=== PATIENT | female | born 1960 | race Two or more races ===

== ENCOUNTER 2018-03-09 17:33 | Emergency (ER) | payer OTHER ==
[2018-03-09 17:55] VITALS: BP 101/62
--- NOTE | 2018-03-09 18:00 | UC ---
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 Drove back to [place], but when stood up felt sudden sharp pain in R foot , dorsal lat foot. 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 No p/d/w. But hurts to move foot or bear weight. 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 TONSILECTOMY. ARTIFICIAL HEART VALVE. GALL BLADDER. OOPHORECTOMY. Bilateral blepharoplasty , bilateral eyelid surgery - Family History Known Family History: Positive: Unknown - Social History Alcohol Use: Weekly Alcohol Amount: had some tonight Substance Use Type: None Smoking Status (MU): Never Smoked Tobacco Have You Smoked in the Last Year: No - Immunization History Most Recent Tetanus Shot: unknown, probably within 10 years Review of Systems Constitutional: Negative Skin: Negative Eyes: Negative ENT: Negative Respiratory: Negative Cardiovascular: Negative Gastrointestinal: Negative Genitourinary: Negative Motor: Other - see hpi Neurovascular: Negative Musculoskeletal: Arthralgia, Myalgia Neurological: Negative Psychological: Negative Is Patient Immunocompromised?: No All Other Systems Reviewed And Are Negative: Yes Physical Exam Triage Information Reviewed: Yes Appearance: Well-Appearing, Well-Nourished Vital Signs: Initial Vital Signs Temp 98.3 F 03/09/18 17:47 Pulse 74 03/09/18 17:47 Resp 16 03/09/18 17:47 BP 101/62 03/09/18 17:47 Pulse Ox 99 03/09/18 17:47 Vital Signs Reviewed: Yes Eye Exam: Normal - grossly normal ENT Exam: Normal - grossly normal Neck exam: Normal - no c/o Respiratory Exam: Normal - no tachypnea no dyspnea. RR normal Cardiovascular Exam: Normal - HR normal, nondiaphoretic. Abdominal Exam: Normal - no complaints Musculoskeletal Exam: Other - R foot + dorsal hematoma mid 4th 5th mt region. No crepitus. Partial thickness abrasion. Distal cap refill x 5 dig good. + sens LT present. Hematoma approx 3cm + diam, smooth margin. Neurological Exam: Normal - grossly nonfocal Psychological Exam: Normal - conversing easily and appropriately Skin Exam: Normal - [place] [facility] [place] exam. nondiaphoretic. + hematoma R dorsal foot Lower Extremity Course/Dx - Course Course Of Treatment: Xray R foot No acute fx (radiology read). Reviewed with. Reviewed coa / tx plan, include elevation, wound care. She takes acetaminophen for pain, has some at home. Cam boot - unsteady. As such, crutches, post op shoe. Questions as posed answered to the best of my ability. Checks her own INR at home, maintains close pcp f/u. - Differential Dx/Diagnosis Provider Diagnoses: R foot hematoma and abrasion. in the setting of chronic anticoagulation Discharge - Sign-Out/Discharge Documenting (check all that apply): Patient Departure - Discharge Plan Condition: Stable Disposition: HOME Patient Education Materials: Abrasion (ED), Hematoma (ED) Forms: *Work Release Referrals: Barb Fernandes DPM [Doctor of Podiatric Medicine] - Nickie Robbins MD [Primary Care Provider] - Additional Instructions: Follow up with your Applied Anthropologist this week if possible. Call your primary care physician on Monday to schedule routine follow up as needed, and to advise of your condition. Elevate your foot as much as possible. Avoid astringents. Seek medical attention for worse or new problems. CAM boot for walking as needed for comfort. Otherwise, firm soled good support shoe. - Billing Disposition and Condition Condition: STABLE Disposition: Home
--- NOTE | 2018-03-09 18:23 | RAD ---
INDICATION: Right foot injury COMPARISON: None TECHNIQUE: AP, lateral, and oblique views were obtained. FINDINGS: There is no acute fracture or dislocation. Soft tissues are intact. IMPRESSION: NO ACUTE FRACTURE
== END 2018-03-09 20:00 | disposition home or self-care (01) ==
LOC: UCEAST 17:33
DX: S90.31XA Contusion of right foot, initial encounter (principal); S90.811A Abrasion, right foot, initial encounter; W20.8XXA Other cause of strike by thrown, projected or falling object, initial encounter; Y93.89 Activity, other specified; Y92.9 Unspecified place or not applicable; Y99.2 Volunteer activity; Z79.01 Long term (current) use of anticoagulants; Z88.5 Allergy status to narcotic agent; Z88.8 Allergy status to other drugs, medicaments and biological substances; Z91.048 Other nonmedicinal substance allergy status
CPT/HCPCS: 99213; G0463

== ENCOUNTER 2018-03-19 05:18 | Emergency (ER) | payer OTHER ==
[2018-03-19] MEDS ORDERED: Morphine INJ* 2 MG/ML 1 ML SYRINGE (TWO MG - NEW SYRINGE VERSION) IV PRN (05:25)
[2018-03-19] MEDS ORDERED: Morphine INJ* 2 MG/ML 1 ML SYRINGE (TWO MG - NEW SYRINGE VERSION) IV ONE (05:25)
--- NOTE | 2018-03-19 05:37 | ED ---
Abdominal Pain/Female - HPI Summary HPI Summary: This patient is a 57 year old F presenting to [facility] with a chief complaint of bilateral flank pain since 0145 this AM. A few days ago a table fell onto her right foot, offering limited mobility and acute pain. Pt endorses feeling normal going to bed tonight. At around 0145, she was awakened by the pain in her foot, then shortly after, she noted a sudden onset sharp abd pain, radiating to sides of her chest, what she describes as in her lungs, its like the organs are all swollen. Denies N/V, urinary sx (she notes urinating nearly 1 quart tonight, measured with a urinal), and trouble with BMs. PMHx graves, endocarditis, and mitral valve replacement. She noted in the ambulance that flatulence and burping alleviated sx temporarily. She endorses sx slightly improved since onset. The pt is strongly emphasizing the lungs as where the pain is. She notes that currently the pain is worse on right side than on the left. She endorses an exceedingly dry mouth, and decreased appetite lately. SHx mitral valve replacement, bleeding cyst removal/repair. Rx Coumadin. Pt notes that she has been taking 2 Tylenols at night for foot pain, but tonight she instead took 1 Tylenol/codeine. 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 Negative: Fever, Constipation, Urinary Symptoms, Nausea, Vomiting, Diarrhea Allergies/Adverse Reactions: Allergies Allergy/AdvReac Type Severity Reaction Status Date / Time meperidine [From Demerol] Allergy Severe See Comment Verified 03/21/18 08:19 methimazole Allergy Severe Flushing Verified 03/21/18 08:19 midazolam [From Versed] Allergy Severe See Comment Verified 03/21/18 08:19 adhesive tape Allergy Rash Verified 03/21/18 08:19 PMH/Surg Hx/FS Hx/Imm Hx Endocrine/Hematology History: Reports: Hx Thyroid Disease - GRAVES DISEASE Cardiovascular History: Reports: Hx Valvular Heart Disease - mitral valve [facility] 1991, Other Cardiovascular Problems/Disorders - ENDOCARDITIS History: Denies: Hx Dialysis Musculoskeletal History: Denies: Hx Osteoporosis Sensory History: Reports: Hx Contacts or Glasses - GLASSES Denies: Hx Legally Blind, Hx Deafness Opthamlomology History: Reports: Hx Contacts or Glasses - GLASSES Denies: Hx Legally Blind EENT History: Denies: Hx Deafness Psychiatric History: Denies: Hx Schizophrenia - Cancer History Hx Chemotherapy: No Hx Radiation Therapy: No - Surgical History Surgery Procedure, Year, and Place: Uterine abalation. TONSILECTOMY. ARTIFICIAL HEART VALVE. GALL BLADDER. OOPHORECTOMY. Bilateral blepharoplasty , bilateral eyelid surgery Infectious Disease History: No Infectious Disease History: Denies: Traveled Outside the [place] in Last 30 Days - Social History Lives: Alone Alcohol Use: Weekly Alcohol Amount: had some tonight Hx Substance Use: No Substance Use Type: Reports: None Hx Tobacco Use: No Smoking Status (MU): Never Smoked Tobacco Have You Smoked in the Last Year: No Review of Systems Negative: Fever Positive: Abdominal Pain. Negative: Vomiting, Diarrhea, Nausea Positive: flank pain - bilateral Positive: Arthralgia - right foot, Myalgia - back pain, Decreased ROM - right foot Positive: Bruising - right foot All Other Systems Reviewed And Are Negative: Yes Physical Exam - Summary Physical Exam Summary: Appearance: Well-appearing, Well-nourished, lying in bed comfortably Skin: Warm, dry, no obvious rash Eyes: sclera anicteric, no conjunctival pallor ENT: mucous membranes moist, pharynx appears normal Neck: Supple, nontender Respiratory: Clear to auscultation, no signs of respiratory distress Cardiovascular: Normal S1, S2. No murmurs. Normal distal pulses in tibial and radial bilaterally. Abdomen: Soft, normal active bowel sounds present. Right sided CVA tenderness Musculoskeletal: Normal, Strength/ROM Intact Neurological: A&Ox3, awake and alert, mentation is normal, speech is fluent and appropriate Psychiatric: affect is normal, does not appear anxious or depressed Triage Information Reviewed: Yes Vital Signs On Initial Exam: Initial Vitals Temp Pulse Resp BP Pulse Ox 97.6 F 79 16 128/75 98 08/27/18 05:22 03/19/18 05:22 03/19/18 05:22 03/19/18 05:22 03/19/18 05:22 Vital Signs Reviewed: Yes Diagnostics - Vital Signs Vital Signs Temp Pulse Resp BP Pulse Ox 03/19/18 05:22 97.6 F 79 16 128/75 98 - Laboratory Result Diagrams: 03/19/18 05:43 03/19/18 05:43 Lab Statement: Any lab studies that have been ordered have been reviewed, and results considered in the medical decision making process. - EKG 0534 Cardiac Rate: NL - 69 EKG Rhythm: Sinus Rhythm ST Segment: Normal Ectopy: None EKG Interpretation: Nl EKG Re-Evaluation - Re-Evaluation First Eval Re-Evaluation Time: 09:10 - Dicussed the CT A/P results and discharge plan with the pt. Change: Improved Abdominal Pain Fem Course/Dx - Diagnoses Provider Diagnoses: Flank pain, acute Discharge - Sign-Out/Discharge Documenting (check all that apply): Sign-Out Patient Signing out patient TO: Emerita Chavez - CT A/P Receiving patient FROM: Aurelio Mahan - Discharge Plan Condition: Stable Disposition: HOME Patient Education Materials: Abdominal Pain (ED) Referrals: Nickie Robbins MD [Primary Care Provider] - 3 Days Additional Instructions: Return to ED for any new or worsening symptoms - Billing Disposition and Condition Condition: STABLE Disposition: Home - Attestation Statements Document Initiated by Miltonibe: Yes Documenting Scribe: Adal Camacho Provider For Whom Ana is Documenting (Include Credential): Dr. Aurelio Mahan MD Scribe Attestation: Adal Berrios scribed for Dr. Aurelio Mahan MD on 03/22/18 at 1848. Scribe Documentation Reviewed: Yes Provider Attestation: The documentation as recorded by the Adal rees accurately reflects the service I personally performed and the decisions made by me, Dr. Aurelio Mahan MD
[2018-03-19 05:58] LABS: ABS Basophils 0.1 10^3/ul (0-0.2); ABS Eosinophils 0.1 10^3/ul (0-0.6); ABS Lymphocytes 1.3 10^3/ul (1.0-4.8); ABS Monocytes 0.4 10^3/ul (0-0.8); ABS Neutrophils 7.4 10^3/ul (1.5-7.7); ABS Nucleated RBC 0 10^3/ul; Eosinophil % 1.1 % (0-6); Hematocrit 36 % (35-47); Hemoglobin 12.1 g/dl (12.0-16.0); Lymphocyte % 13.8 % (25-47); Mean Corpuscular HGB Conc 33 g/dl (31-36); Mean Corpuscular Hemoglobin 27 pg (27-31); Mean Corpuscular Volume 80 fL (80-97); Mean Platelet Volume 9.1 um3 (7.4-10.4); Nucleated Red Blood Cells % 0; Platelet Count 168 10^3/ul (150-450); Red Blood Count 4.57 10^6/ul (4.00-5.40); Red Cell Distribution Width 15 % (10.5-15); White Blood Count 9.3 10^3/ul (3.5-10.8)
[2018-03-19 06:14] LABS: INR 3.58 (0.77-1.02)
[2018-03-19 06:23] LABS: EGFR Non-African American 69.4 (>60)
--- OUTSIDE RECORDS SUMMARY | 2018-03-19 06:38 | XMS REPORT ---
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 Active Onset: 11/30/2017 Heart valve replacement Nickie Robbins M.D. Active Onset: 04/18/2015 Acute maxillary sinusitis Beni Faust M.D. Active Family History Date Family Member(s) Problem(s) Comments Father 84 Mother 83 Children None Siblings 1 brother, 2 sisters. 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 Myelodysplasia - Conner Wills for prostate, Christy Foote for neurology. 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 Cigarette Use Never Smoked Cigarettes ETOH Use Social Alcohol 2 glasses of wine weekly. Exercise Type/Frequency Exercises regularly walks 10 minutes a day. to the gym every 10 days on the treadmill. Dom Violence Screen screening has been done Dom Violence Screen feels safe at home, at work, and in the community Allergies, Adverse Reactions, Alerts Date Description Reaction Status Severity Comments 01/21/2011 Methimazole active 01/21/2011 Milk-related Compounds active 01/21/2011 Versed active 01/21/2011 Demerol active 03/17/2015 Adhesives active Medications Medication Date Status Form Strength Qnty SIG Indications Ordering Provider Xopenex 12/26 Active Nebulizer 0.63mg/3M 72ml 1 vial by J20.9 Nickie LPatricia /2017 L nebulizer [place], every four M.D. hours as needed Nebulizer 12/26 Active Misc 1unit w/ tubing J20.9 Nickie Nur s kits - dx: kacey Robbins M.DPatricia Imitrex 11/30 Active Tablets 50mg 9tabs take 1 G43.109 Nickie Nur tablet by yang Robbins at M.D. onset of headache may repeat every 2 hours Inr Machine 11/30 Active 1unit Z95.2 Nickie LPatricia s Payal Robbins Coumadin 03/23 Active Tablets 5mg 60tab Take 2 Z95.2 Sushma Santos s Tablets By Yang Jacobs On [employer]BER Sundays. Take 1 And 1/2 Tablets By Mouth Monday- Propylthiouracil Active Tablets 50mg 30tab 1/2 PO qd s Coumadin Active Tablets 10mg 1 day alt[address] with 7.5mg x6 days Aspir-[address] 81mg 1 by mouth / every day Raloxifene HCL Active Tablets 60mg 1 by mouth / every day Vitamin D3 Active Capsules 400Unit / Probiotic Active Capsules 2 a day Tessalon Perles 01/10 Hx Capsules 100mg 30cap take 1 J20.9 Beni Dodson s capsule by Christel - yang two MD alan 03/15 to times daily as needed for cough Lovenox 01/08 Hx Solution 60mg/0.6M 1.2ml 55mg x 2 Beni TPatricia L days as Christel phillips MD 03/15 Medrol 12/26 Hx TBPK 4mg 1unit use as J20.9 Nickie Nur s directed Ernestina Robbins.DPatricia 01/09 Acetaminophen-Cod 12/26 Hx Tablets 300-30mg 32tab 1-2 by J20.9 Nickie Nur eine # s mouth four Rosendo, - times daily M.D. 03/15 as needed. Xopenex HFA 12/26 Hx Aerosol 45mcg/Act 15gm 2 puffs J20.9 Nickie Nur every four Rosendo, - hours for M.D. 01/19 cough Tessalon Perles 12/21 Hx Capsules 100mg 90cap take 1 J20.9 Nickie LPatricia s capsule by Rosendo, - mouth two M.D. 01/09 to times daily as needed for cough Azithromycin 12/21 Hx Tablets 250mg 11tab 2 by mouth Nickie LPatricia s today. 1 by Rosendo, - mouth daily M.D. 01/09 x Amoxicillin 10/08 Hx Tablets 500mg 16tab 1 by mouth Beni Patterson s twice a day Ernestina Faust M.D. 11/29 Physical Therapy 05/04 Hx evaluate Nickie Nur /2014 and treat Ernestina Robbins M.DPatricia 10/08 shoulder pain pudt Amoxicillin 04/18 Hx Capsules 500mg 20cap twice a day Beni Patterson /2014 s x 10 days Ernestina Faust M.D. 10/08 No Active 03/17 Hx Unknown Medications /2014 - 03/17 Warfarin Sodium Hx Tablets 10mg 30tab 1 tab po Unknown /0000 s q6d - 03/17 Warfarin Sodium Hx Tablets 7.5mg po q1 Unknown /0000 day/wk - 03/17 Vitamin B 6 00/00 Hx Tablets 50mg 1/4 tab qwk Unknown /0000 - 03/17 Vitamin B 50 00/00 Hx Tablets 1/4 tab q Unknown /0000 wk - 03/17 Calcium 500 00/00 Hx Tablets 500mg Unknown / - 03/17 Immunizations CPT Code Status Date Vaccine Lot # [id number] Given 05/11/2017 Influenza Vac, Quadrivalent, Slit Virus, Im [id number] Given 03/17/2015 Tdap Tetanus, W Pertussis [id number] Vital Signs Date Vital Result Comment 03/15/2018 Heart Rate 76 /min Body Temperature 97.7 F Respiratory Rate 16 /min Height 62.25 inches 5'2.25" measured 05/11/17 Weight 122.00 lb BMI (Body Mass Index) 22.1 kg/m2 01/10/2018 BP Systolic 100 mmHg BP Diastolic 60 mmHg Heart Rate 72 /min Body Temperature 97.9 F Height 62.25 inches 5'2.25" measured 05/11/17 Weight 122.00 lb BMI (Body Mass Index) 22.1 kg/m2 12/26/2017 BP Systolic 106 mmHg BP Diastolic 60 mmHg Heart Rate 90 /min Body Temperature 98.4 F Respiratory Rate 16 /min Height 62.25 inches 5'2.25" measured 05/11/17 12/21/2017 BP Systolic 100 mmHg BP Diastolic 70 mmHg Heart Rate 76 /min Body Temperature 98.0 F Respiratory Rate 18 /min Height 62.25 inches 5'2.25" measured 05/11/17 Weight 124.00 lb BMI (Body Mass Index) 22.5 kg/m2 12/20/2017 BP Systolic 106 mmHg BP Diastolic 60 mmHg Heart Rate 84 /min Body Temperature 100.2 F Height 62.25 inches 5'2.25" measured 05/11/17 11/30/2017 BP Systolic 100 mmHg BP Diastolic 72 mmHg Heart Rate 64 /min Body Temperature 97.9 F Respiratory Rate 18 /min Height 62.25 inches 5'2.25" measured 05/11/17 Weight 125.00 lb BMI (Body Mass Index) 22.7 kg/m2 05/11/2017 BP Systolic 100 mmHg BP Diastolic 60 mmHg Heart Rate 66 /min Body Temperature 98.6 F Respiratory Rate 16 /min Height 62.25 inches 5'2.25" measured 05/11/17 Weight 120.12 lb BMI (Body Mass Index) 21.8 kg/m2 03/23/2017 BP Systolic 104 mmHg BP Diastolic 62 mmHg Heart Rate 76 /min Body Temperature 98.1 F Respiratory Rate 16 /min Height 62.5 inches 5'2.50" Weight 117.12 lb BMI (Body Mass Index) 21.1 kg/m2 02/22/2016 BP Systolic 118 mmHg BP Diastolic 72 mmHg Heart Rate 68 /min Body Temperature 97.2 F Respiratory Rate 16 /min Height 62.5 inches 5'2.50" Weight 116.00 lb BMI (Body Mass Index) 20.9 kg/m2 11/30/2015 BP Systolic 112 mmHg BP Diastolic 60 mmHg Heart Rate 62 /min Body Temperature 97.6 F Respiratory Rate 16 /min Height 62.5 inches 5'2.50" Weight 123.00 lb BMI (Body Mass Index) 22.1 kg/m2 10/09/2015 BP Systolic 98 mmHg BP Diastolic 52 mmHg Heart Rate 68 /min Body Temperature 99.3 F Height 62.5 inches 5'2.50" 04/18/2015 BP Systolic 84 mmHg BP Diastolic 60 mmHg Heart Rate 78 /min Body Temperature 97.3 F Respiratory Rate 16 /min Height 62.5 inches 5'2.50" Weight 118.38 lb BMI (Body Mass Index) 21.3 kg/m2 03/17/2015 BP Systolic 90 mmHg BP Diastolic 60 mmHg Heart Rate 72 /min Body Temperature 98.2 F Respiratory Rate 16 /min Height 62.5 inches 5'2.50" Weight 118.00 lb BMI (Body Mass Index) 21.2 kg/m2 01/21/2011 BP Systolic 96 mmHg BP Diastolic 50 mmHg Heart Rate 68 /min Body Temperature 98.6 F Respiratory Rate 20 /min Weight 111.00 lb Results Test Date Test Result H/L Range Note Laboratory test 01/10/2018 Inr (Fma) 1.8 Low 2.5-3.5 finding Laboratory test 01/08/2018 Inr (Fma) 1.5 Low 2.5-3.5 finding Laboratory test 12/21/2017 Blood Culture SEE RESULT BELOW 1 finding Laboratory test 12/21/2017 C Reactive Protein 17.24 mg/L High < 5.00 2 finding Laboratory test 12/20/2017 Sedimentation Rate 7mm finding CBC Electronic (Fma 12/20/2017 WBC 5.99 4.0-10.0 New) RBC 4.99 3.93-6.0 Hemoglobin (Fma/CMC/CTX) 13.3 g/dL 12.0-17.0 Hematocrit (Fma/CMC/CTX) 39.9 % 35.0-50.0 Mean Corpuscular Vol 80.0 fL 80-95 Mean Corpuscular Hemoglobin 26.7 pg 25.6-32.2 Mean Corpuscular Hemo Concen 33.3 g/dL 32.2-36.0 Platelets 173 10^3/ul 163-400 RDW-CV 14.2 11.6-14.4 Mean Platelet Volume 11.1 fL 9.4-12.4 Absolute Neutrophils BLD 4.31 1.56-6.13 Absolute Lymphocytes 0.91 Low 1.18-3.74 Absolute Monocytes BLD Auto 0.67 0.24-0.82 Absolute Eos Blood 0.07 0.04-0.54 Absolute Basophils 0.03 0.01-0.08 Neutrophil % 71.9 High 34.0-70.0 Lymph% 15.2 % Low 20.0-52.0 Monocytes % 11.2 % 5.0-12.0 Eos % 1.2 % 0.7-7.0 Basophil% 0.5 % 0.1-1.2 Influenza A&B-fma 12/20/2017 Influenza A neg Influenza B neg Laboratory test finding 11/26/2017 [facility] Test See Attached Laboratory test finding 11/06/2017 Inr (Fma) 4.6 High 2.5-3.5 Laboratory test finding 10/06/2017 Inr (Fma) 3.3 2.5-3.5 Laboratory test finding 09/27/2017 Inr (Fma) 4.2 High 2.5-3.5 Laboratory test finding 08/26/2017 Inr (Fma) 3.2 2.5-3.5 Laboratory test finding 06/19/2017 Inr (Fma) 2.8 2.5-3.5 Laboratory test finding 05/20/2017 Inr (Fma) 3.2 2.5-3.5 Comprehensive Metabolic Prof 04/26/2017 Sodium 145 mEq/L 134-149 Potassium 4.5 mEq/L 3.6-5.5 Chloride 107 mEq/L 94-112 Carbon Dioxide 24 mEq/L 21-32 Glucose 95 mg/dL 70-105 BUN 19 mg/dL 6-26 Creatinine 0.8 mg/dL 0.6-1.4 BUN/Creat Ratio 23.8 CALC 8.0-36.0 Calcium 10.0 mg/dL 8.6-10.2 Total Protein 7.0 g/dL 6.4-8.3 Albumin 4.6 g/dL 3.8-5.5 Globulin 2.4 g/dL 2.0-4.8 A/G Ratio 1.9 CALC 0.6-2.3 Alk. Phosphatase 44 U/L 30-110 Alt (SGPT) 16 U/L 7-35 Ast (Sgot) 22 U/L 5-34 Total Bilirubin 1.3 mg/dL 0.2-1.3 GFR Non- >60 ml/min/1.73m^ >=60 GFR >60 ml/min/1.73m^ >=60 Complete Blood Count 04/26/2017 WBC 3.8 x10^3/UL 3.6-9.6 RBC 5.12 x10^6/UL 3.90-5.70 HGB 13.5 g/dL 12.1-17.2 HCT 42 % 36-50 MCV 82.0 fL Low 82.2-97.4 MCH 26.4 pg Low 27.6-33.3 MCHC 32.2 g/dL Low 33.0-35.5 RDW 13.9 % High 11.6-13.7 PLT 176 x10^3/UL 150-400 MPV 8.2 fL 7.4-10.4 Gran # 2.2 x10^3/UL 1.5-7.2 Lymph# 1.4 x10^3/UL 0.7-4.9 Rawlins# 0.2 x10^3/UL 0.1-0.9 Gran % 55.7 % 42.2-75.2 Lymph % 38.5 % 20.5-51.1 Rawlins% 5.8 % 1.7-9.3 Lipid Profile 04/26/2017 Cholesterol 212 mg/dL High 120-200 Triglycerides 83 mg/dL 30-200 HDL Cholesterol 87 mg/dL High 30-85 LDL (Calculated) 108 CALC 0-129 VLDL Cholesterol 17 mg/dL 0-50 HDL Risk Factor 2.4 CALC 0.0-4.4 Laboratory test finding 04/26/2017 TSH 3.35 mIU/L 0.50-6.00 Laboratory test finding 04/24/2017 Inr (Fma) 3.6 High 2.5-3.5 Laboratory test finding 03/30/2017 Inr (Fma) 2.8 2.5-3.5 Laboratory test finding 03/23/2017 Inr (Fma) 4.9 High 2.0-3.0 Laboratory test finding 01/19/2017 Inr/Protime 4.29 High 0.89-1.11 Laboratory test finding 01/19/2017 TSH (Thyroid Stim 2.38 mcIU/mL 0.34- 5.60 3 Horm) T3 Free 3.20 pg/mL 2.5-3.9 4 Free T4 (Free Thyroxine) 0.81 ng/dL 0.61-1.12 5 Laboratory test finding 10/06/2016 Inr/Protime 3.03 High 0.89-1.11 6 Laboratory test finding 08/08/2016 Inr/Protime 1.73 High 0.89-1.11 Laboratory test finding 08/08/2016 Inr/Protime 1.73 High 0.89-1.11 TSH (Thyroid Stim Horm) 2.27 mcIU/mL 0.34-5.60 7 T3 Free 3.20 pg/mL 2.5-3.9 8 Free T4 (Free Thyroxine) 0.78 ng/dL 0.61-1.12 9 Laboratory test 06/24/2016 Inr/Protime 2.79 High 0.89-1.11 10 finding Laboratory test 06/24/2016 TSH (Thyroid Stim 2.57 mcIU/mL 0.34-5.60 11 finding Horm) T3 Free 3.50 pg/mL 2.5-3.9 12 Free T4 (Free Thyroxine) 0.83 ng/dL 0.61-1.12 13 Laboratory test finding 11/03/2015 Inr/Protime 2.81 High 0.89-1.11 Laboratory test finding 10/27/2015 Inr/Protime 2.49 High 0.89-1.11 Laboratory test finding 10/21/2015 Inr/Protime 2.54 High 0.89-1.11 Laboratory test finding 10/14/2015 Inr/Protime 1.80 High 0.89-1.11 Laboratory test finding 10/09/2015 Inr (Fma) 1.3 Low 2.0-3.0 Lipid Panel-[facility] 08/05/2015 Triglycerides 71 mg/dL 14 Cholesterol 209 mg/dL 15 HDL Cholesterol 92.5 mg/dL 16 LDL Cholesterol 102 mg/dL 17 Comp Metabolic-[facility] 08/05/2015 Sodium 139 mmol/L 133-145 Potassium 4.2 mmol/L 3.5-5.0 Chloride 102 mmol/L 101-111 Co2 Carbon Dioxide 32 mmol/L 22-32 Anion Gap 5 mmol/L 2-11 Glucose 74 mg/dL 70-100 Blood Urea Nitrogen 15 mg/dL 6-24 Creatinine 0.84 mg/dL 0.51-0.95 BUN/Creatinine Ratio 17.9 8-20 Calcium 10.3 mg/dL 8.6-10.3 Total Protein 7.6 g/dL 6.4-8.9 Albumin 5.1 g/dL 3.2-5.2 Globulin 2.5 g/dL 2-4 Albumin/Globulin Ratio 2.0 1-3 Total Bilirubin 1.50 mg/dL High 0.2-1.0 Alkaline Phosphatase 50 U/L 34-104 Alt 18 U/L 7-52 Ast 26 U/L 13-39 Egfr Non- 70.1 >60 Egfr 90.2 >60 18 Comp Metabolic Panel 08/05/2015 Sodium 139 mmol/L 133-145 Potassium 4.2 mmol/L 3.5-5.0 Chloride 102 mmol/L 101-111 Co2 Carbon Dioxide 32 mmol/L 22-32 Anion Gap 5 mmol/L 2-11 Glucose 74 mg/dL 70-100 Blood Urea Nitrogen 15 mg/dL 6-24 Creatinine 0.84 mg/dL 0.51-0.95 BUN/Creatinine Ratio 17.9 8-20 Calcium 10.3 mg/dL 8.6-10.3 Total Protein 7.6 g/dL 6.4-8.9 Albumin 5.1 g/dL 3.2-5.2 Globulin 2.5 g/dL 2-4 Albumin/Globulin Ratio 2.0 1-3 Total Bilirubin 1.50 mg/dL High 0.2-1.0 Alkaline Phosphatase 50 U/L 34-104 Alt 18 U/L 7-52 Ast 26 U/L 13-39 Egfr Non- 70.1 >60 Egfr 90.2 >60 19 Laboratory test finding 08/05/2015 TSH (Thyroid Stim Horm) 3.68 ?IU/mL 0.34-5.60 20 Free T4 (Free Thyroxine) 0.84 ng/mL 0.61-1.12 Vitamin D Total 25(Oh) 41.7 ng/mL 30-50 21 Lipid Profile (Trig/Chol/HDL) 08/05/2015 Triglycerides 71 mg/dL 22 Cholesterol 209 mg/dL 23 HDL Cholesterol 92.5 mg/dL 24 LDL Cholesterol 102 mg/dL 25 CBC Auto Diff 08/05/2015 White Blood Count 4.2 10^3/uL 3.5-10.8 Red Blood Count 5.44 10^6/uL High 4.0-5.4 Hemoglobin 14.3 g/dL 12.0-16.0 Hematocrit 44 % 35-47 Mean Corpuscular Volume 81 fL 80-97 Mean Corpuscular Hemoglobin 26 pg Low 27-31 Mean Corpuscular HGB Conc 32 g/dL 31-36 Red Cell Distribution Width 16 % High 10.5-15 Platelet Count 176 10^3/uL 150-450 Mean Platelet Volume 9 um3 7.4-10.4 Abs Neutrophils 2.4 10^3/uL 1.5-7.7 Abs Lymphocytes 1.4 10^3/uL 1.0-4.8 Abs Monocytes 0.3 10^3/uL 0-0.8 Abs Eosinophils 0.1 10^3/uL 0-0.6 Abs Basophils 0 10^3/uL 0-0.2 Abs Nucleated RBC 0.02 10^3/uL Granulocyte % 56.8 % 38-83 Lymphocyte % 32.5 % 25-47 Monocyte % 7.8 % 1-9 Eosinophil % 1.9 % 0-6 Basophil % 1.0 % 0-2 Nucleated Red Blood Cells % 0.5 CBC Electronic-[facility] 08/05/2015 White Blood Count 4.2 10^3/uL 3.5-10.8 Red Blood Count 5.44 10^6/uL High 4.0-5.4 Hemoglobin 14.3 g/dL 12.0-16.0 Hematocrit 44 % 35-47 Mean Corpuscular Volume 81 fL 80-97 Mean Corpuscular Hemoglobin 26 pg Low 27-31 Mean Corpuscular HGB Conc 32 g/dL 31-36 Red Cell Distribution Width 16 % High 10.5-15 Platelet Count 176 10^3/uL 150-450 Mean Platelet Volume 9 um3 7.4-10.4 Abs Neutrophils 2.4 10^3/uL 1.5-7.7 Abs Lymphocytes 1.4 10^3/uL 1.0-4.8 Abs Monocytes 0.3 10^3/uL 0-0.8 Abs Eosinophils 0.1 10^3/uL 0-0.6 Abs Basophils 0 10^3/uL 0-0.2 Abs Nucleated RBC 0.02 10^3/uL Granulocyte % 56.8 % 38-83 Lymphocyte % 32.5 % 25-47 Monocyte % 7.8 % 1-9 Eosinophil % 1.9 % 0-6 Basophil % 1.0 % 0-2 Nucleated Red Blood Cells % 0.5 Laboratory test finding 08/05/2015 TSH (Thyroid Stim Horm) 3.68 ?IU/mL 0.34-5.60 26 Free T4 (Free Thyroxine) 0.84 ng/mL 0.61-1.12 27 Vitamin D Total 25(Oh) 41.7 ng/mL 30-50 28 N Telopeptide Serum 11.1 nMBCE 29 Laboratory test finding 08/04/2015 Inr/Protime 1.58 High 0.89-1.11 Laboratory test finding 08/04/2015 Inr/Protime 1.58 High 0.89-1.11 Pthi 08/04/2015 Calcium (PTH Intact) 10.9 mg/dL High 8.6-10.3 PTH Intact 7.3 pmol/L 1.3-9.3 Comp Metabolic Panel 08/04/2015 Sodium 137 mmol/L 133-145 Potassium 4.2 mmol/L 3.5-5.0 Chloride 99 mmol/L Low 101-111 Co2 Carbon Dioxide 31 mmol/L 22-32 Anion Gap 7 mmol/L 2-11 Glucose 69 mg/dL Low 70-100 Blood Urea Nitrogen 15 mg/dL 6-24 Creatinine 0.82 mg/dL 0.51-0.95 BUN/Creatinine Ratio 18.3 8-20 Calcium 10.5 mg/dL High 8.6-10.3 Total Protein 7.6 g/dL 6.4-8.9 Albumin 5.1 g/dL 3.2-5.2 Globulin 2.5 g/dL 2-4 Albumin/Globulin Ratio 2.0 1-3 Total Bilirubin 1.50 mg/dL High 0.2-1.0 Alkaline Phosphatase 56 U/L 34-104 Alt 17 U/L 7-52 Ast 25 U/L 13-39 Egfr Non- 72.1 >60 Egfr 92.7 >60 30 Laboratory test finding 08/04/2015 Vitamin D Total 25(Oh) 41.7 ng/mL 30- 50 Alkaline Phosphatase Bone Iso 12 g/L 31 Laboratory test 07/06/2015 Inr/Protime 2.42 High 0.89-1.11 finding Laboratory test 07/06/2015 TSH (Thyroid Stim Horm) 2.10 ?IU/mL 0.34-5.60 finding Free T4 (Free Thyroxine) 0.83 ng/mL 0.61-1.12 Inr/Protime 2.42 High 0.89-1.11 T3 Free 3.10 pg/mL 2.5-3.9 Laboratory test finding 02/01/2011 Inr (Fma) 2.9 2.5-3.5 CBC Electronic (Fma) 02/01/2011 WBC 3.9 3.6-9.6 RBC 5.02 3.90-5.70 Hemoglobin (Fma/CMC/CTX) 13.4 g/dL 12.1 - 17.2 Hematocrit (Fma/CMC/CTX) 40.8 % 36.1 - 50.3 Platelets 193 10^3/ul 150-400 Lymph% 31.8 20.5-51.1 Mixed% 4.8 Neutrophils % 63.4 Mean Corpuscular Vol 81 Low 82.2-97.4 Mean Corpuscular Hemoglobin 26.8 Low 27.6-33.3 Mean Corpuscular Hemo Concen 32.9 32.0-36.0 RDW 12.5 11.6-13.7 Mean Platelet Volume 8.1 6.5-11.0 Laboratory test finding 01/21/2011 Inr (Fma) 4.1 High 2.5-3.5 Comprehensive Metabolic Prof 01/21/2011 Albumin 5.0 g/dL 3.8-5.5 Alk. Phos. 59 U/L 30-110 Alt (SGPT) 14 U/L 7-35 Ast (Sgot) 21 U/L 5-34 BUN 18 mg/dL 6-26 Calcium 10.0 mg/dL 8.6-10.2 Chloride 95 mEq/L 94-112 Creatinine 0.9 mg/dL 0.6-1.4 Carbon Dioxide 26 mEq/L 21-32 Glucose 81 mg/dL 70-105 Sodium 136 mEq/L 134-149 Total Bilirubin 1.4 mg/dL High 0.2-1.3 32 Total Protein 7.4 g/dL 6.3-8.1 Potassium 3.8 mEq/L 3.6-5.5 Globulin 2.4 g/dL 2.0-4.8 A/G Ratio 2.1 Calc 0.6-2.2 BUN/Creat Ratio 20.9 Calc 8.0-36.0 Laboratory test finding 01/21/2011 Free T4 1.00 ng/dL 0.75-1.54 TSH 1.84 mIU/L 0.50-6.00 1 SEE RESULT BELOW Name: VANESSA MONTIEL : [address]: Nickie Robbins MD Acct: [id number] Unit: [id number] AGE: 57 Location: LAB Re12/21/17 SEX: F Status: REG REF SPEC: [id number] REINALDO: 12/21/17-[address]: Nickie Robbins MD REQ: [id number] RECD: 12/21/17 STATUS: RES _ SOURCE: BLOOD,VENO SPDESC: ORDERED: Blood Cult Procedure Result Reported Site Aerobic Culture Bottle Preliminary 12/25/17- 1702 ML No Growth Day 4 Anaerobic Culture Bottle Final 12/26/17- 1702 ML No Growth Day 5 * ML - Main Lab . END OF REPORT DEPARTMENT OF PATHOLOGY, [address] [place] [address] Jhonathan Coelho M.D. Director [facility] # [id number] 2 Acute inflammation: >10.00 3 S/O ENTERED 01/05/17 S/O EXPIRES 07/07/17 STANDING ORDER FAX RESULTS TO [phone] 4 S/O ENTERED 01/05/17 S/O EXPIRES 07/07/17 STANDING ORDER FAX RESULTS TO [phone] 5 S/O ENTERED 01/05/17 S/O EXPIRES 07/07/17 STANDING ORDER FAX RESULTS TO [phone] 6 STANDING ORDER VALID 04/22/16-10/20/16 Q 2 WEEKS 7 STANDING ORDER VALID 04/29/16-10/28/16 FAX RESULTS: 8 STANDING ORDER VALID 04/29/16-10/28/16 FAX RESULTS: 9 STANDING ORDER VALID 04/29/16-10/28/16 FAX RESULTS: 10 STANDING ORDER VALID 04/22/16-10/20/16 11 STANDING ORDER VALID 04/29/16-10/28/16 FAX RESULTS: 12 STANDING ORDER VALID 04/29/16-10/28/16 FAX RESULTS: 13 STANDING ORDER VALID 04/29/16-10/28/16 FAX RESULTS: 14 Desirable <150 Borderline high 150-199 High 200-499 Very High >500 15 Desirable <200 Borderline high 200-239 High >239 16 Low <40 Desirable: 40-60 High: >60 17 Desirable: <100 mg/dL Near Optimal: 100-129 mg/dL Borderline High: 130-159 mg/dL High: 160-189 mg/dL Very High: >189 mg/dL 18 Because ethnic data is not always readily available, this report includes an eGFR for both -Americans and non- Americans. The National Kidney Disease Education Program (NKDEP) does not endorse the use of the MDRD equation for patients that are not between the ages of 18 and 70, are , have extremes of body size, muscle mass, or nutritional status, or are non- or non-. According to the National Kidney Foundation, irrespective of diagnosis, the stage of the disease is based on the level of kidney function: Stage Description GFR(mL/min/1.73 m(2)) 1 Kidney damage with normal or decreased GFR 90 2 Kidney damage with mild decrease in GFR 60-89 3 Moderate decrease in GFR 30-59 4 Severe decrease in GFR 15-29 5 Kidney failure <15 (or dialysis) 19 Because ethnic data is not always readily available, this report includes an eGFR for both -Americans and non- Americans. The National Kidney Disease Education Program (NKDEP) does not endorse the use of the MDRD equation for patients that are not between the ages of 18 and 70, are , have extremes of body size, muscle mass, or nutritional status, or are non- or non-. According to the National Kidney Foundation, irrespective of diagnosis, the stage of the disease is based on the level of kidney function: Stage Description GFR(mL/min/1.73 m(2)) 1 Kidney damage with normal or decreased GFR 90 2 Kidney damage with mild decrease in GFR 60-89 3 Moderate decrease in GFR 30-59 4 Severe decrease in GFR 15-29 5 Kidney failure <15 (or dialysis) 20 PT IS FASTING 21 PT IS FASTING 22 Desirable <150 Borderline high 150-199 High 200-499 Very High >500 23 Desirable <200 Borderline high 200-239 High >239 24 Low <40 Desirable: 40-60 High: >60 25 Desirable: <100 mg/dL Near Optimal: 100-129 mg/dL Borderline High: 130-159 mg/dL High: 160-189 mg/dL Very High: >189 mg/dL 26 PT IS FASTING 27 PT IS FASTING 28 PT IS FASTING 29 INTERPRETIVE INFORMATION: N-Telopeptide, Cross-Linked, Serum Adult Male.......................5.4 - 24.2 nM BCE Premenopausal Adult Female.......6.2 - 19.0 nM BCE The target value for treated post-menopausal adult females is the same as the premenopausal reference interval. BCE=Bone Collagen Equivalent Test Performed by: [facility] [address] [place] [id number] 30 Because ethnic data is not always readily available, this report includes an eGFR for both -Americans and non- Americans. The National Kidney Disease Education Program (NKDEP) does not endorse the use of the MDRD equation for patients that are not between the ages of 18 and 70, are , have extremes of body size, muscle mass, or nutritional status, or are non- or non-. According to the National Kidney Foundation, irrespective of diagnosis, the stage of the disease is based on the level of kidney function: Stage Description GFR(mL/min/1.73 m(2)) 1 Kidney damage with normal or decreased GFR 90 2 Kidney damage with mild decrease in GFR 60-89 3 Moderate decrease in GFR 30-59 4 Severe decrease in GFR 15-29 5 Kidney failure <15 (or dialysis) 31 REFERENCE VALUE <=14 (Premenopausal) <=22 (Postmenopausal) Test Performed by: [place] [address] Oven Tender: Renaldo Soliman II, M.D., Ph.D. 32 RESULT JOSÉ'D Procedures Date CPT Code Description Status Comment 01/10/2018 34200 Finger Or Heel Stick Completed 01/08/2018 26790 Finger Or Heel Stick Completed 12/26/2017 23553 Nebulizer Treatment Completed 11/06/2017 55525 Finger Or Heel Stick Completed 10/06/2017 70661 Finger Or Heel Stick Completed 09/27/2017 32531 Finger Or Heel Stick Completed 08/26/2017 13880 Finger Or Heel Stick Completed 06/23/2017 Mammogram Completed 06/19/2017 33273 Finger Or Heel Stick Completed 05/20/2017 51055 Finger Or Heel Stick Completed 05/11/2017 18168 CPHL SHQ Completed 04/24/2017 95070 Finger Or Heel Stick Completed 03/30/2017 21735 Finger Or Heel Stick Completed 03/23/2017 25926 Finger Or Heel Stick Completed 01/14/2016 Mammogram Completed 10/09/2015 16116 Finger Or Heel Stick Completed 07/24/2013 Colonoscopy Completed [place]. no polyps. repeat in 10 years. 07/24/[address] Suresh from [place]. 02/01/2011 04494 Finger Or Heel Stick Completed Encounters Type Date Location Provider CPT E/M Dx Office Visit 01/10/2018 3:40p [place] [address] R05 Z79.01 Office Visit 12/26/2017 2:40p [facility] Nickie Robbins M.D. 08005 J20.9 Office Visit 12/21/2017 1:40p [facility] Nickie Robbins M.D. 28514 R05 Office Visit 12/21/2017 1:40p [facility] Nickie Robbins M.D. 37518 R05 Office Visit 12/20/2017 7:00p [facility] Office Sushma Jacobs, ALEXI 63467 R50.9 Office Visit 11/30/2017 3:00p [facility] Nickie Robbins M.D. 84055 G43.109 E05.00 Z95.2 Office Visit 05/11/2017 1:00p [facility] Nickie Robbins M.D. 60982 Z00.01 M79.673 R79.9 Z23 Office Visit 03/23/2017 3:30p [facility] Sushma Jacobs, ALEXI 60860 Z95.2 Z79.01 Office Visit 02/22/2016 2:50p [facility] Nickie Robbins M.D. 65317 M81.0 F43.22 Office Visit 11/30/2015 3:00p [facility] Nickie Robbins M.D. 22744 F43.22 Office Visit 10/09/2015 11:10a Main Office Beni Faust M.D. 56558 Z79.01 Z95.2 J01.00 Office Visit 04/18/2015 10:15a Main Office Beni Faust M.D. 08747 461.0 Office Visit 03/17/2015 2:00p [facility] Office Nickie Robbins M.D. 90272 V70.0 268.9 V06.1 V06.5 Office Visit 01/21/2011 2:40p Main Office Beni Faust M.D. 60332 v70.0 V77.0 V43.3 780.79 V58.61 Plan of Care Future Appointment(s):04/18/2018 3:20 pm - Nickie Robbins M.D. at Main [id number]/15/2018 - Sushma Jacobs, NPS95.001A Unsp injury of dorsal artery of right foot, init encntrComments:Continue to follow up with Dr. Zhang. You can stop using the boot and cane when your pain improves. You do not appear to have lost a worrisome amount of blood.S97.81xA Crushing injury of right foot, initial encounter
[2018-03-19] MEDS ORDERED: Iohexol 300* (CONTRAST) 10 ML SDV IV ONE (06:55)
--- NOTE | 2018-03-19 07:03 | UC ---
- Progress Note Progress Note: 07:00- Received the pt from Dr. Aurelio Mahan MD. The pt is awaiting CT A/P results. CT A/P Results IMPRESSION: NO ACUTE CT FINDINGS. NO MASS OR INFLAMMATORY CHANGES. NO CT EVIDENCE OF RETROPERITONEAL HEMORRHAGE. The ED physician has reviewed this radiology report and agrees with it. Re-Evaluation - Re-Evaluation First Eval Re-Evaluation Time: 09:10 - Dicussed the CT A/P results and discharge plan with the pt. Change: Improved Course/Dx - Course Course Of Treatment: CT scan result reviewed the patient. She is pain-free and is hemodynamically stable and safe for discharge over return precautions otherwise follow-up with her doctor. Discharge - Sign-Out/Discharge Documenting (check all that apply): Patient Departure - DC - Discharge Plan Condition: Stable Disposition: HOME Patient Education Materials: Abdominal Pain (ED) Referrals: Nickie Robbins MD [Primary Care Provider] - 3 Days Additional Instructions: Return to ED for any new or worsening symptoms - Billing Disposition and Condition Condition: STABLE Disposition: Home - Attestation Statements Document Initiated by Ana: Yes Documenting Scribe: Melanie Marshall Provider For Whom Ana is Documenting (Include Credential): Yefri Jensen MD Scribe Attestation: Melanie Berrios scribed for Emerita Jensen MD on 03/19/18 at 1604. Scribe Documentation Reviewed: Yes Provider Attestation: The documentation as recorded by the Melanie rees accurately reflects the service I personally performed and the decisions made by , Emerita Jensen MD
--- NOTE | 2018-03-19 09:00 | RAD ---
INDICATION: Flank pain. Evaluate for retroperitoneal bleed COMPARISON: December 10, 2014 TECHNIQUE: Axial source images were obtained from the hemidiaphragms to the symphysis pubis following administration of oral and intravenous contrast. 79 mL Omnipaque 300 was utilized. Coronal and sagittal reconstructed images were acquired. Lung bases: The lung bases are clear. Liver: The liver is normal in size. There are no masses. There is mild intrahepatic and extrahepatic ductal dilatation most consistent with postcholecystectomy state. The appearance unchanged Gallbladder: Cholecystectomy. Spleen: The spleen is normal in size. There are no masses. Pancreas: There is no focal pancreatic mass or ductal dilatation. Adrenal glands: There is no evidence of adrenal mass. Kidneys: The kidneys are normal in size and position. There are prompt nephrograms and there is prompt excretion bilaterally. There are no renal parenchymal masses. There is no evidence of nephrolithiasis. Adenopathy: There is no evidence of adenopathy by size criteria. Fluid collections: There are no free or localized fluid collections. Vessels:There are no significant atherosclerotic changes involving the aorta. There is no focal aneurysm. The iliac vessels are normal in caliber. The IVC appears normal. GI tract: There are no acute CT bowel findings. There is no obstruction. The stomach and small bowel appear normal. There is moderate retained stool within the colon. There are scattered diverticula but no CT findings of acute diverticulitis. The cecum, ileocecal valve, and terminal ileum appear normal. The appendix is visualized and appear normal. Pelvic organs: The uterus and adnexa appear normal Bladder: There are no bladder masses. Abdominal and pelvic soft tissues: The extraperitoneal abdominal and pelvic soft tissues appear normal.. Osseous structures: There are no acute osseous findings. Other: None IMPRESSION: NO ACUTE CT FINDINGS. NO MASS OR INFLAMMATORY CHANGES. NO CT EVIDENCE OF RETROPERITONEAL HEMORRHAGE.
[2018-03-19 09:11] LABS: Urine Appearance Cloudy; Urine Blood 1+ (Negative); Urine Color Yellow; Urine Ketones Trace (Negative); Urine Protein 1+(30 mg/dL) (Negative); Urine Red Blood Cell 3+(>10/hpf) (Absent); Urine Specific Gravity > 1.060 (1.010-1.030); Urine Urobilinogen Negative (Negative); Urine White Blood Cell 1+(6-10/hpf) (Absent)
[2018-03-19 09:35] VITALS: BP 129/81
== END 2018-03-19 09:34 | disposition home or self-care (01) ==
LOC: ED 05:18
DX: R07.9 Chest pain, unspecified (principal); R10.9 Unspecified abdominal pain; M54.9 Dorsalgia, unspecified; Z79.01 Long term (current) use of anticoagulants; Z95.2 Presence of prosthetic heart valve; Z90.49 Acquired absence of other specified parts of digestive tract; Z88.4 Allergy status to anesthetic agent; Z88.5 Allergy status to narcotic agent; Z88.8 Allergy status to other drugs, medicaments and biological substances; Z91.048 Other nonmedicinal substance allergy status
CPT/HCPCS: 36415; 74177; 80053; 81003; 81015; 83605; 83690; 84484; 85025; 85610; 87086; 93005; 96374; 99283; J2270; Q9967

== ENCOUNTER 2018-03-19 16:06 | Inpatient (IN) | payer OTHER ==
[2018-03-19] MEDS ORDERED: Ondansetron INJ* 2 MG/ML VIAL IV PRN (17:44)
[2018-03-19] MEDS ORDERED: Polyethyl Glycol/Propylene Gly OPHTH.SOLN BOTH EYES PRN (19:08)
[2018-03-19 19:18] LABS: ABS Basophils 0.1 10^3/ul (0-0.2); ABS Eosinophils 0 10^3/ul (0-0.6); ABS Lymphocytes 2.2 10^3/ul (1.0-4.8); ABS Monocytes 0.3 10^3/ul (0-0.8); ABS Neutrophils 3.5 10^3/ul (1.5-7.7); ABS Nucleated RBC 0 10^3/ul; Eosinophil % 0.8 % (0-6); Hematocrit 38 % (35-47); Hemoglobin 12.7 g/dl (12.0-16.0); Lymphocyte % 35.7 % (25-47); Mean Corpuscular HGB Conc 33 g/dl (31-36); Mean Corpuscular Hemoglobin 27 pg (27-31); Mean Corpuscular Volume 80 fL (80-97); Mean Platelet Volume 9.4 um3 (7.4-10.4); Nucleated Red Blood Cells % 0.1; Platelet Count 195 10^3/ul (150-450); Red Cell Distribution Width 15 % (10.5-15)
[2018-03-19 19:25] LABS: INR 3.85 (0.77-1.02)
[2018-03-19] MEDS ORDERED: ZOSYN 3.375 GM x ONE DOSE over 30 miuntes IVPB ×2 (19:30)
[2018-03-19 19:35] LABS: EGFR Non-African American 66.6 (>60)
[2018-03-19] MEDS ORDERED: ceFAZolin 1 GM VIAL(*) 1 GM in NS 0.9% 50 ML* 50 ML IVPB SCH (20:00)
[2018-03-19] MEDS: Aspirin EC TAB* 81 MG TAB.EC PO SCH (20:37)
[2018-03-19] MEDS: Propylthiouracil TAB* 50 MG PO SCH (20:37)
[2018-03-19] MEDS: RALOXIFENE 60 MG PO SCH (20:39)
[2018-03-19] MEDS: diPHENhydraMINE IV* 50 MG/ML 1 ml VIAL (BENADRYL) IV PRN (20:43)
[2018-03-19] MEDS: oxyCODONE TAB* 5 MG TAB PO PRN (20:52)
[2018-03-19] MEDS ORDERED: Warfarin TAB(*) 5 MG PO ONE (21:00)
--- NOTE | 2018-03-19 22:36 | CONS ---
CONSULTATION REPORT: DATE OF CONSULT: 03/19/18 TIME OF CONSULT: 07:00 p.m. REQUESTING SERVICE: Orthopedic Surgery. REASON FOR CONSULT: Mechanical valve management perioperatively. CHIEF COMPLAINT: Right foot pain. 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 Luong's office this afternoon for right foot pain after she dropped a table on it last Monday. She had been resting and elevating her foot, however, 2 days ago she spent some time on her feet cooking and since that time had increased swelling and erythema on the dorsal surface of the right foot over the 5th digit in the midfoot. When she saw Dr. Luong this afternoon, he directly admitted her for cellulitis and we are asked to evaluate the patient due to her mechanical mitral valve and consideration for surgery should IV antibiotic fail for the cellulitis. Ms. Hayder Ayala feels well, at this time her pain is well controlled. She does not have any fever, chest pain, nausea, vomiting, shortness of breath, orthopnea. Of note, she was in the emergency department this morning for what she believes was nephrolithiasis, however, her CT scan from this morning does not show any nephrolithiasis. PAST MEDICAL HISTORY: 1. Endocarditis due to dental extractions in 1987. She subsequently had mitral valve regurgitation and a mitral valve repair performed in 1991 at [facility]. 2. She has been on warfarin since this time and has had the complication of massive hemorrhage after an ovarian cyst rupture 18 years ago. She has had no thrombotic complications and no other bleeding complications. 3. History of DVTs in 1987. 4. Graves' disease of both the thyroid and eyes. 5. Osteoporosis. 6. Dysfunctional uterine bleeding, status post uterine ablation. HOME MEDICATIONS: 1. Aspirin 81 mg daily. 2. Coumadin 7.5 mg 6 days a week and 10 mg on Mondays. 3. PTU 12.5. 4. Raloxifene of unknown dose. SOCIAL HISTORY: She lives alone. Her resides at [facility] due to multiple CVAs. Her point of contact should be unable to make decisions is her cousin. Roosevelt who would call her father, Rodney who is in [place] and is her healthcare proxy. PHYSICAL EXAM: No vital signs have been recorded at this time. General: Alert , well-appearing female, in no distress. She is pleasant and comfortable. HEENT: Pupils are equal, round, reactive light. No nystagmus. Oral mucosa is moist. Neck: No JVP. No cervical or supraclavicular lymphadenopathy. Chest: Regular rate and rhythm. Mechanical click auscultated throughout. Lungs are clear bilaterally. Abdomen: Soft, nontender, nondistended. No flank pain. Extremities: An 1-inch abrasion is noted on the dorsum of the right foot over the 4th and 5th digit of the midfoot with surrounding erythema and ecchymosis that extends to the toes. There is no drainage. There is no fluctuance or induration. She is able to move all toes. DIAGNOSTIC STUDIES/LAB DATA: Labs, white blood cells 9.3, hemoglobin 12.1, platelets 168. INR 3.58. Sodium 139, potassium 3.8, chloride 104, bicarb 29, BUN 15, creatinine 0.84, glucose 99, lactic acid 0.9. Urinalysis from this morning shows 3+ rbc's, 1+ leuk esterase, 1+ white blood cells. Specific gravity over 1.06. Foot x-ray from 03/09/18 showed no acute fracture. ASSESSMENT AND PLAN: This is a 57-year-old female with history of mechanical mitral valve due to bacterial endocarditis in 1987, who was admitted to the orthopedic service for right foot cellulitis. Hospital medicine is consulted to assist in managing anticoagulation perioperatively for a mechanical mitral valve. 1. Mechanical mitral valve. Depending on your comfort level intraoperatively, we can either continue warfarin or transition her to a heparin drip. It is my understanding that warfarin is acceptable should she need an I and D or debridement this week, so for now I am going to cut today's dose in half to 5 mg and continue her usual dose of 7.5 mg daily starting tomorrow. She states she is quite sensitive to dose reduction and she believes this will have a marked effect, so that we can aim for an INR closer to 2.5 then 3.5 for this time. Of note, she has not had any thrombotic complications being in her lower range closer to 2.5. 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 3. Right foot cellulitis. I see that she has been started on Zosyn only and I would recommend adding some gram-positive coverage. 4. Graves' disease, continue PTU and eye drops. 5. Osteoporosis, continue Raloxifene. Thank you for allowing us to participate in the care of your patient. Please do not hesitate to call with any questions or concerns about this case. [id number]/[facility] #: [id number] CLIVE
[2018-03-20] MEDS: Piperacillin/Tazobac ADVAN(*) 3.375 GM in NS 0.9% 100 ML* 100 ML IVPB SCH ×2 (00:13→08:42)
[2018-03-20] MEDS: oxyCODONE TAB* 5 MG TAB PO PRN (04:49)
[2018-03-20 06:36] LABS: INR 4.66 (0.77-1.02)
[2018-03-20] MEDS: Cholecalciferol TAB* 400 UNIT PO SCH (08:42)
--- NOTE | 2018-03-20 10:00 | PN ---
Progress Note - Progress Note Date of Service: 03/20/18 SOAP: Subjective: [Pt was seen this morning sitting up in bed. She states she is doing well. States that she still has tenderness in the foot. Pain when she has the foot dangling at the bedside. She denies any nausea, vomiting, chest pain, SOB. ] Objective: [General: A&O x3, NAD MSK, RLE: Dressing changed today. Lateral aspect of the foot reveals large lump that is purplish. THere is ecchymosis surrounding the area. The bump is severely tender. She is able to wiggle toes, has full sensation distally and 2+ DP with brisk cap refill present in all toes. ] Vital Signs Temp 98.0 F 03/20/18 07:27 Pulse 64 03/20/18 07:27 Resp 16 03/20/18 08:40 BP 90/42 03/20/18 07:55 Pulse Ox 97 03/20/18 07:27 Intake & Output 03/19/18 03/20/18 03/20/18 18:59 06:59 18:59 Intake Total 1155 Output Total 500 400 Balance 655 -400 Weight 120 lb Intake: IV Fluids 205 ABX - ZOSYN 205 Oral 950 Output: Urine 500 400 Other: # Bowel Movements 0 Assessment: [ Right foot cellulitis ] Plan: [Continue with current abx medications NPO after midnight tonight, To or tomorrow for I&D Continue with pain medication at this time ]
--- NOTE | 2018-03-20 11:28 | PN ---
Subjective Date of Service: 03/20/18 Interval History: Feels okay today; pain is controlled with oxycodone. Feels a little "groggy." No bleeding. Objective Active Medications: Acetaminophen (Tylenol Tab*) 650 mg PO Q6H PRN PRN Reason: PAIN OR TEMPERATURE Aspirin (Aspirin Ec Tab*) 81 mg PO BEDTIME [facility] Last Admin: 03/19/18 20:37 Dose: 81 mg Carboxymethylcellulose/Glycerin (Refresh Optive Gel Eye Gel) 1 applic BOTH EYES Q4H PRN PRN Reason: DRY EYE Cholecalciferol (Vitamin D Tab*) 400 unit PO DAILY [facility] Last Admin: 03/20/18 08:42 Dose: 400 unit Diphenhydramine HCl (Benadryl Iv*) 25 mg IV Q6H PRN PRN Reason: PRURITIS Last Admin: 03/19/18 20:43 Dose: 25 mg Lactated Ringer's (Lactated Ringers 1000 Ml Bag*) 1,000 mls @ 75 mls/hr IV PER RATE [facility] Last Admin: 03/19/18 19:45 Dose: 75 mls/hr Piperacillin Sod/Tazobactam (Sod 3.375 gm/ Sodium Chloride) 100 mls @ 25 mls/ hr IVPB Q8H [facility] Last Admin: 03/20/18 08:42 Dose: 25 mls/hr Ondansetron HCl (Zofran Inj*) 4 mg IV Q6H PRN PRN Reason: NAUSEA Oxycodone HCl (Roxycodone Tab*) 5 mg PO Q8H PRN PRN Reason: PAIN - SEVERE Last Admin: 03/20/18 04:49 Dose: 5 mg Pharmacy Profile Note (Coumadin Daily Reminder*) 1 note FOLLOW UP 1700 [facility] Polyethyl Glycol/Propylene Glycol (Lubricant Eye Drops) 1 drop BOTH EYES Q2H PRN PRN Reason: DRY EYE Propylthiouracil (Ptu Tab*) 12.5 mg PO BEDTIME [facility] Last Admin: 03/19/18 20:37 Dose: 12.5 mg Raloxifene HCl (Evista(Nf)) 60 mg PO BEDTIME [facility]; Protocol Last Admin: 03/19/18 20:39 Dose: 60 mg Vital Signs - 8 hr 03/20/18 03/20/18 03/20/18 03:26 04:49 06:54 Temperature 98.3 F Pulse Rate 62 Respiratory 16 16 16 Rate Blood Pressure 87/40 (mmHg) O2 Sat by Pulse 96 Oximetry 03/20/18 03/20/18 03/20/18 07:27 07:55 08:40 Temperature 98.0 F Pulse Rate 64 Respiratory 16 16 Rate Blood Pressure 77/40 90/42 (mmHg) O2 Sat by Pulse 97 Oximetry Oxygen Devices in Use Now: None Appearance: alert, comfortable, in good spirits visiting with her friend Eyes: No Scleral Icterus Ears/Nose/Mouth/Throat: NL Teeth, Lips, Gums Neck: NL Appearance and Movements; NL JVP Respiratory: Symmetrical Chest Expansion and Respiratory Effort, Clear to Auscultation Cardiovascular: - - mechanical click Abdominal: NL Sounds; No Tenderness; No Distention Lymphatic: No Cervical Adenopathy Extremities: No Edema, - - right foot abrasion dorsal surface with surrounding erythema and echymosis Skin: No Rash or Ulcers Neurological: Alert and Oriented x 3 Result Diagrams: 03/19/18 19:00 03/19/18 19:00 Assess/Plan/Problems-Billing Assessment: 57 yo female with history of mechanical valve due to endocarditis admitted with right foot cellulitis after dropping a table on his foot. - Patient Problems (1) Supratherapeutic INR Current Visit: Yes Status: Acute Code(s): R79.1 - ABNORMAL COAGULATION PROFILE SNOMED Code(s): 696490429 Comment: likely due to poor po intake yesterday; also may be related to pip/ tazo, which raises the effect of warfarin I will switch pip/tazo to clindamycin, which interacts less I am requesting a high vitamin k diet today but would avoid supplemental po/iv vitamin (2) Cellulitis of foot Current Visit: Yes Status: Acute Code(s): L03.119 - CELLULITIS OF UNSPECIFIED PART OF LIMB SNOMED Code(s): 428705730 Comment: continue antibiotics plan for OR tomorrow with Dr. Zhang (3) H/O mitral valve replacement with mechanical valve Current Visit: Yes Status: Acute Code(s): Z95.2 - PRESENCE OF PROSTHETIC HEART VALVE SNOMED Code(s): 69136958115841
[2018-03-20] MEDS: Clindamycin 300 MG IVPREMIX(* 300 MG/50 ML SDV IV SCH ×2 (13:04→18:40)
[2018-03-20] MEDS ORDERED: Warfarin TAB(*) 7.5 MG PO SCH (17:00)
--- NOTE | 2018-03-20 20:41 | CONS ---
CONSULTATION REPORT: DATE OF CONSULT: 03/20/18 REQUESTING PHYSICIAN: Dr. Luong. CONSULTING SERVICE: Infectious Disease. REASON FOR CONSULT: Foot infection. IMPRESSION: 1. Right lateral foot hematoma with cellulitis, possibility of progressing to abscess. 2. Systemic anticoagulation for a mechanical heart valve. RECOMMENDATION: She is on clindamycin 300 mg every 6 hours, which is fine to continue waiting the culture material to available. She will likely be able to change management lead to oral antibiotics as there is no evidence currently of any bone involvement. HISTORY OF PRESENT ILLNESS: This is a 57-year-old woman with mechanical mitral valve, who takes Coumadin for the same. She dropped a table on her foot a week ago, developed progression of a bruise to area of swelling on the lateral right foot. She saw Dr. Luong because her symptoms were worsening and he recommended she come to the hospital for incision and debridement, which will be done tomorrow. She has been on IV antibiotics since last night. She has had no fevers, chills, or sweats. She thinks the swelling is down a little bit. She has not had infection requiring hospitalization in the past. PAST MEDICAL HISTORY: 1. Mitral regurgitation, status post mitral valve replacement, biomechanical valve. 2. Mitral valve endocarditis. 3. Hyperthyroidism. 4. History of DVT, 1987. 5. Osteoporosis. 6. Abnormal uterine bleeding, status post uterine ablation. MEDICATIONS: 1. Tylenol. 2. Aspirin. 3. Cholecalciferol. 4. Clindamycin 300 mg IV every 6 hours. 5. PTU. 6. Warfarin. 7. Raloxifene. ALLERGIES: MEPERIDINE, METHIMAZOLE, MIDAZOLAM, ADHESIVE TAPE. FAMILY HISTORY: No recurrent infections. SOCIAL HISTORY: She lives in [place] by herself. She works at [employer]. Her is in a [facility] facility. REVIEW OF SYSTEMS: All negative except as noted above to a 12-point review of systems. PHYSICAL EXAM: Vital Signs: Temperature is 36.6, heart rate 60, respiratory rate 16, blood pressure 106/44, oxygen saturation 98% on room air. In general, she is awake, not in distress. Neurologic: She is oriented x3. Follows all commands. HEENT: There is no thrush. Heart is regular rate and rhythm without murmurs, rubs, or gallops. Lungs are clear to auscultation bilaterally. Abdomen: Soft, nontender, nondistended. There are bowel sounds present. Skin : There is no rash or splinter hemorrhage. Musculoskeletal: Right lateral mid and forefoot, there is a 2.5 cm area of swelling, which is tender. There is mild erythema and ecchymosis without crepitus. There is no ankle tenderness to palpation or pain with range of motion. LABORATORY DATA: Creatinine 0.8. CRP is 7. White blood cell count 6, hemoglobin 12, platelets 195. Please see impressions and recommendations as outlined above. Thanks for asking me to see Ms. Hayder Livingston. [id number]/[facility] #: [id number] [facility]
[2018-03-20] MEDS: Propylthiouracil TAB* 50 MG PO SCH (22:12)
[2018-03-20] MEDS: Aspirin EC TAB* 81 MG TAB.EC PO SCH (22:12)
[2018-03-20] MEDS: RALOXIFENE 60 MG PO SCH (22:14)
[2018-03-21] MEDS: Clindamycin 300 MG IVPREMIX(* 300 MG/50 ML SDV IV SCH ×5 (00:08→23:42)
[2018-03-21] MEDS: diPHENhydraMINE IV* 50 MG/ML 1 ml VIAL (BENADRYL) IV PRN ×2 (02:10→11:02)
[2018-03-21] MEDS: Carboxymethylcellulose/Glyceri 10 ML OPHTH.GEL lubricant eye gel BOTH EYES PRN (02:14)
[2018-03-21] MEDS: Morphine INJ* 2 MG/ML 1 ML SYRINGE (TWO MG - NEW SYRINGE VERSION) IV PRN (03:29)
[2018-03-21 06:26] LABS: INR 3.59 (0.77-1.02)
--- NOTE | 2018-03-21 07:43 | PN ---
Subjective Date of Service: 03/21/18 Interval History: Pt is feeling quite sleepy this AM. She states she slept poorly overnight and now is having a hard time waking up. She states she continues to have pain in her R foot. Plan is tentatively for OR today for I&D. Objective Active Medications: Acetaminophen (Tylenol Tab*) 650 mg PO Q6H PRN PRN Reason: PAIN OR TEMPERATURE Aspirin (Aspirin Ec Tab*) 81 mg PO BEDTIME [facility] Last Admin: 03/20/18 22:12 Dose: Not Given Carboxymethylcellulose/Glycerin (Refresh Optive Gel Eye Gel) 1 applic BOTH EYES Q4H PRN PRN Reason: DRY EYE Last Admin: 03/21/18 02:14 Dose: 1 applic Cholecalciferol (Vitamin D Tab*) 400 unit PO DAILY [facility] Last Admin: 03/20/18 08:42 Dose: 400 unit Diphenhydramine HCl (Benadryl Iv*) 25 mg IV Q6H PRN PRN Reason: PRURITIS Last Admin: 03/21/18 02:10 Dose: 25 mg Lactated Ringer's (Lactated Ringers 1000 Ml Bag*) 1,000 mls @ 75 mls/hr IV PER RATE [facility] Last Admin: 03/21/18 00:09 Dose: 75 mls/hr Clindamycin HCl/Dextrose (Cleocin 300 Mg Ivpemix(*)) 300 mg in 50 mls @ 200 mls /hr IV Q6H [facility] Last Admin: 03/21/18 06:29 Dose: 200 mls/hr Morphine Sulfate (Morphine Inj ((Syringe))*) 2 mg IV Q4H PRN PRN Reason: PAIN Last Admin: 03/21/18 03:29 Dose: 2 mg Ondansetron HCl (Zofran Inj*) 4 mg IV Q6H PRN PRN Reason: NAUSEA Oxycodone HCl (Roxycodone Tab*) 5 mg PO Q8H PRN PRN Reason: PAIN - SEVERE Last Admin: 03/20/18 04:49 Dose: 5 mg Pharmacy Profile Note (Coumadin Daily Reminder*) 1 note FOLLOW UP 1700 [facility] Last Admin: 03/20/18 18:40 Dose: 1 note Polyethyl Glycol/Propylene Glycol (Lubricant Eye Drops) 1 drop BOTH EYES Q2H PRN PRN Reason: DRY EYE Propylthiouracil (Ptu Tab*) 12.5 mg PO BEDTIME [facility] Last Admin: 03/20/18 22:12 Dose: 12.5 mg Raloxifene HCl (Evista(Nf)) 60 mg PO BEDTIME [facility]; Protocol Last Admin: 03/20/18 22:14 Dose: 60 mg Vital Signs - 8 hr 03/21/18 03/21/18 03/21/18 02:10 03:29 03:33 Temperature Pulse Rate Respiratory 16 16 16 Rate Blood Pressure (mmHg) O2 Sat by Pulse Oximetry 03/21/18 03/21/18 03/21/18 03:36 04:30 07:24 Temperature 98.0 F 97.9 F Pulse Rate 65 59 Respiratory 16 16 16 Rate Blood Pressure 88/43 88/45 (mmHg) O2 Sat by Pulse 96 97 Oximetry 03/21/18 07:38 Temperature Pulse Rate Respiratory Rate Blood Pressure 88/42 (mmHg) O2 Sat by Pulse Oximetry Oxygen Devices in Use Now: None Appearance: Middle aged female lying in bed, NAD Eyes: No Scleral Icterus Ears/Nose/Mouth/Throat: Mucous Membranes Moist Respiratory: Symmetrical Chest Expansion and Respiratory Effort, Clear to Auscultation Cardiovascular: NL Sounds; No Murmurs; No JVD, RRR, No Edema Abdominal: NL Sounds; No Tenderness; No Distention Extremities: No Clubbing, Cyanosis Skin: No Nodules or Sclerosis, - - Bruising noted to dorsum of R foot. On lateral aspect of the foot there is a walnut sized "bump" with overlying slight redness. Minimal redness overlying lateral malleolus. Still very tender to palpation. Neurological: Alert and Oriented x 3 Result Diagrams: 03/19/18 19:00 03/19/18 19:00 Assess/Plan/Problems-Billing Ms Hayder Livingston is a 57 yo female with 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 - Patient Problems (1) Cellulitis of foot Current Visit: Yes Status: Acute Code(s): L03.119 - CELLULITIS OF UNSPECIFIED PART OF LIMB SNOMED Code(s): 534181335 Comment: Pt mild cellulitis and probable hematoma on dorsum of R foot though possible early abscess. Plan for OR today with Dr. Zhang. Contiue IV clindamycin. Likely another 24-48hr in the hospital then home with IV Abx. (2) H/O mitral valve replacement with mechanical valve Current Visit: Yes Status: Acute Code(s): Z95.2 - PRESENCE OF PROSTHETIC HEART VALVE SNOMED Code(s): 49294097021699 Comment: Resume coumadin at home dose with close monitoring of her INR while on Abx therapy. (3) Graves disease Current Visit: Yes Status: Acute Code(s): E05.00 - THYROTOXICOSIS W DIFFUSE GOITER W/O THYROTOXIC CRISIS SNOMED Code(s): 073021723 Comment: Continue PTU at home dose. (4) DVT prophylaxis Current Visit: Yes Status: Acute Code(s): PDI8659 - SNOMED Code(s): 003550496 Comment: Therapeutic INR (5) Full code status Current Visit: Yes Status: Acute Code(s): Z78.9 - OTHER SPECIFIED HEALTH STATUS SNOMED Code(s): 783633514
--- NOTE | 2018-03-21 08:01 | PN ---
Progress Note - Progress Note Date of Service: 03/21/18 Note: I saw Annel this morning. Overall the foot looks improved. The swelling and erythema is improved. She still does have a fair amount of erythema and tenderness at the collection. The foot is warm and well perfused with a good DP pulse. We discussed an I&D of the fluid collection, and she was in agreement with this plan. We will plan on a right foot I&D this morning. All her questions were answered. Cameron Luong MD
[2018-03-21] MEDS: Cholecalciferol TAB* 400 UNIT PO SCH (08:12)
[2018-03-21] MEDS ORDERED: fentaNYL* 50 MCG/ML 2 ML VIAL (100 MCG VIAL) ONE (08:16)
[2018-03-21] MEDS ORDERED: Midazolam* 1 MG/ML 5 ML VIAL (5 MG) ONE (08:16)
[2018-03-21] MEDS ORDERED: Ketorolac INJ* 30 MG/ML 1 ML VIAL ONE (08:19)
[2018-03-21] MEDS ORDERED: ROPIVACAINE 5 MG/ML 30 ML BTL (0.5%) ONE (09:05)
[2018-03-21] MEDS ORDERED: Lidocaine 2% PF* 10 ML AMP ONE (09:06)
[2018-03-21] MEDS ORDERED: Propofol* 10 MG/ML 20 ML BTL IV PUSH ONE (09:44)
[2018-03-21] MEDS ORDERED: Naloxone* 0.4 MG/ML 1 ML VIAL IV PRN (09:53)
--- NOTE | 2018-03-21 10:08 | OP ---
Operative Report - Blank - Operative Report Date of Operation: 03/21/18 Note: PATIENT: Annel Livingston DATE OF : 1960 DATE OF SURGERY: 03/21/2018 SURGEON: Cameron Luong MD FELT CUTTER: none ANESTHESIOLOGIST: Dr. Arenas PREOPERATIVE DIAGNOSIS: Right foot cellulitis and infected hematoma POSTOPERATIVE DIAGNOSIS: Right foot cellulitis and infected hematoma OPERATION: Right foot irrigation and debridement ANESTHESIA: MAC IMPLANTS: none TOURNIQUET TIME: none SPECIMENS: Culture swabs to microbiology ESTIMATED BLOOD LOSS: minimal COMPLICATIONS: none STATUS: Stable from the operating room to the recovery room and then back to the hospital floor. INDICATIONS FOR PROCEDURE: Annel developed a right dorsal foot hematoma after dropping a table on her foot. She then developed an infection and cellulitis so was admitted to the hospital for IV antibiotics. The cellulitis improved but the hematoma remained erythematous and very tender. Both operative and non-operative treatment alternatives were reviewed. Further, the nature and risks of surgery were reviewed in careful detail in the pre-operative holding area. Our discussions regarding the risks of surgery included, but were not limited to, persistent or worsening infection, wound problems, nerve injury, neuroma, RSD, persistent symptoms, blood clot, failure of the surgery, need for further surgery and even the remote chance of catastrophic complication, including loss of limb. DESCRIPTION OF PROCEDURE: The patient was seen in the preoperative holding unit and informed written consent was obtained. The appropriate extremity was marked. The patient was then brought to the operating room and carefully positioned on the operating room table. Anesthesia was induced. All bony prominences were padded with great care. A chlorhexidine based pre-scrub was performed followed by a chloraprep prep and drape in standard sterile fashion. A surgical safety pause was then conducted in which we confirmed the appropriate patient, extremity, planned procedure, availability of equipment, indication and administration of antibiotics, and DVT prophylaxis in the form of a compression boot on the non- surgical extremity. I began by placing an ankle block. The right dorsal foot hematoma measured 3cm in length, 2cm in width and 1.5cm in depth. I made a 2cm incision at the site of the hematoma. Immediate mature hematoma was encountered. I sent culture swabs from the bloody fluid encountered. I then sharply debrided all nonviable tissue with a 15 blade scalpel at the subcutaneous, fascial, and muscular layers. Overall, the tissue looked quite good. Once all unhealthy appearing tissue had been excised, sterile saline was used to copiously irrigate the wound. The wound was then inspected for any remaining infected-appearing tissue. I then closed the wound utilizing 3-0 Prolene. A sterile dressing was then applied. The patient was then awakened from anesthesia and transferred to the recovery room in stable condition. There were no complications. All needle and sponge counts were correct at the end of the case. ATTESTATION: I attest I was present and scrubbed and performed the entire procedure myself. POSTOPERATIVE PLAN: She will continue on antibiotics as guided by the infectious disease service.
[2018-03-21] MEDS: Warfarin TAB(*) 7.5 MG PO SCH (17:46)
[2018-03-21] MEDS: RALOXIFENE 60 MG PO SCH (20:49)
[2018-03-21] MEDS: Aspirin EC TAB* 81 MG TAB.EC PO SCH (20:49)
[2018-03-21] MEDS: Propylthiouracil TAB* 50 MG PO SCH (20:50)
[2018-03-22] MEDS: oxyCODONE TAB* 5 MG TAB PO PRN ×3 (03:33→23:50)
[2018-03-22] MEDS: Clindamycin 300 MG IVPREMIX(* 300 MG/50 ML SDV IV SCH ×4 (05:45→23:52)
[2018-03-22 06:17] LABS: INR 2.3 (0.77-1.02)
--- NOTE | 2018-03-22 07:24 | PN ---
Progress Note - Progress Note Date of Service: 03/22/18 SOAP: Subjective: []Patient seen and examined at bedside. She is feeling well with less than previous to surgery. Denies fever, chills, CP, SOB, dizziness, nausea. Objective: []General: Well appearing, NAD RLE: Dressing CDI without surrounding erythema. Sensation intact to light touch , cap refill less than two seconds distally. Able to wiggle toes Calves supple, nontender without erythema, edema or palpable cords Assessment: [] POD 1 sp I&D right foot Plan: []Await culture growth. Continue clindamycin for now. Appreciate ID and hospitalist comanagment bolus 500 ml LR for low BP Vital Signs Temp 98.0 F 03/22/18 03:36 Pulse 57 03/22/18 03:36 Resp 14 03/22/18 05:47 BP 86/49 03/22/18 03:36 Pulse Ox 100 03/22/18 03:36 Intake & Output 03/21/18 03/22/18 03/22/18 18:59 06:59 18:59 Intake Total 1845 1270 Output Total 950 1750 Balance 895 -480 Intake: IV Fluids 1745 ABX - CLINDAMYCIN 165 LR 1580 Oral 100 1270 Output: Urine 950 1750 Other: Date of Last Bowel 03/21/18 Movement # Bowel Movements 1 Estimated Stool Amount Medium Laboratory Last Values WBC 6.0 10^3/ul (3.5-10.8) 03/19/18 19:00 RBC 4.80 10^6/ul (4.00-5.40) 03/19/18 19:00 Hgb 12.7 g/dl (12.0-16.0) 03/19/18 19:00 Hct 38 % (35-47) 03/19/18 19:00 MCV 80 fL (80-97) 03/19/18 19:00 MCH 27 pg (27-31) 03/19/18 19:00 MCHC 33 g/dl (31-36) 03/19/18 19:00 RDW 15 % (10.5-15) 03/19/18 19:00 Plt Count 195 10^3/ul (150-450) 03/19/18 19:00 MPV 9.4 um3 (7.4-10.4) 03/19/18 19:00 Neut % (Auto) 57.4 % (38-83) 03/19/18 19:00 Lymph % (Auto) 35.7 % (25-47) 03/19/18 19:00 Weston % (Auto) 5.2 % (0-7) 03/19/18 19:00 Eos % (Auto) 0.8 % (0-6) 03/19/18 19:00 Baso % (Auto) 0.9 % (0-2) 03/19/18 19:00 Absolute Neuts (auto) 3.5 10^3/ul (1.5-7.7) 03/19/18 19:00 Absolute Lymphs (auto) 2.2 10^3/ul (1.0-4.8) 03/19/18 19:00 Absolute Monos (auto) 0.3 10^3/ul (0-0.8) 03/19/18 19:00 Absolute Eos (auto) 0 10^3/ul (0-0.6) 03/19/18 19:00 Absolute Basos (auto) 0.1 10^3/ul (0-0.2) 03/19/18 19:00 Absolute Nucleated RBC 0 10^3/ul 03/19/18 19:00 Nucleated RBC % 0.1 03/19/18 19:00 ESR 12 mm/Hr (0-30) 03/19/18 19:00 INR (Anticoag Therapy) 2.30 (0.77-1.02) H 03/22/18 06:00 Sodium 138 mmol/L (135-145) 03/19/18 19:00 Potassium 3.8 mmol/L (3.5-5.0) 03/19/18 19:00 Chloride 103 mmol/L (101-111) 03/19/18 19:00 Carbon Dioxide 30 mmol/L (22-32) 03/19/18 19:00 Anion Gap 5 mmol/L (2-11) 03/19/18 19:00 BUN 14 mg/dL (6-24) 03/19/18 19:00 Creatinine 0.87 mg/dL (0.51-0.95) 03/19/18 19:00 Est GFR ( Amer) 80.6 (>60) 03/19/18 19:00 Est GFR (Non-Af Amer) 66.6 (>60) 03/19/18 19:00 BUN/Creatinine Ratio 16.1 (8-20) 03/19/18 19:00 Glucose 128 mg/dL (70-100) H 03/19/18 19:00 Calcium 9.9 mg/dL (8.6-10.3) 03/19/18 19:00 C-Reactive Protein 7.55 mg/L (<8.01) 03/19/18 19:00
[2018-03-22] MEDS: Cholecalciferol TAB* 400 UNIT PO SCH (07:59)
[2018-03-22] MEDS: Morphine INJ* 2 MG/ML 1 ML SYRINGE (TWO MG - NEW SYRINGE VERSION) IV PRN (08:03)
[2018-03-22] MEDS: Acetaminophen TAB* 325 MG PO PRN (10:40)
--- NOTE | 2018-03-22 15:01 | PN ---
Subjective Date of Service: 03/22/18 Interval History: Pt seen sitting up in a chair in her room with her eyes closed and holding on tightly to the end of the bed and the arm of the chair. She states she is feeling very funny. She states she feels like she has "air between her ears." Once she is put back to bed with help, she quickly improves. She denies any spinning sensation. Objective Active Medications: Acetaminophen (Tylenol Tab*) 650 mg PO Q6H PRN PRN Reason: PAIN OR TEMPERATURE Last Admin: 03/22/18 10:40 Dose: 650 mg Aspirin (Aspirin Ec Tab*) 81 mg PO BEDTIME [facility] Last Admin: 03/21/18 20:49 Dose: 81 mg Carboxymethylcellulose/Glycerin (Refresh Optive Gel Eye Gel) 1 applic BOTH EYES Q4H PRN PRN Reason: DRY EYE Last Admin: 03/21/18 02:14 Dose: 1 applic Cholecalciferol (Vitamin D Tab*) 400 unit PO DAILY [facility] Last Admin: 03/22/18 07:59 Dose: 400 unit Diphenhydramine HCl (Benadryl Iv*) 25 mg IV Q6H PRN PRN Reason: PRURITIS Last Admin: 03/21/18 11:02 Dose: 25 mg Lactated Ringer's (Lactated Ringers 1000 Ml Bag*) 1,000 mls @ 75 mls/hr IV PER RATE [facility] Last Admin: 03/22/18 10:41 Dose: 75 mls/hr Clindamycin HCl/Dextrose (Cleocin 300 Mg Ivpemix(*)) 300 mg in 50 mls @ 200 mls /hr IV Q6H [facility] Last Admin: 03/22/18 12:35 Dose: 200 mls/hr Morphine Sulfate (Morphine Inj ((Syringe))*) 2 mg IV Q4H PRN PRN Reason: PAIN Last Admin: 03/22/18 08:03 Dose: 2 mg Ondansetron HCl (Zofran Inj*) 4 mg IV Q6H PRN PRN Reason: NAUSEA Oxycodone HCl (Roxycodone Tab*) 5 mg PO Q8H PRN PRN Reason: PAIN - SEVERE Last Admin: 03/22/18 12:34 Dose: 5 mg Pharmacy Profile Note (Coumadin Daily Reminder*) 1 note FOLLOW UP 1700 [facility] Last Admin: 03/21/18 17:47 Dose: 1 note Polyethyl Glycol/Propylene Glycol (Lubricant Eye Drops) 1 drop BOTH EYES Q2H PRN PRN Reason: DRY EYE Propylthiouracil (Ptu Tab*) 12.5 mg PO BEDTIME [facility] Last Admin: 03/21/18 20:50 Dose: 12.5 mg Raloxifene HCl (Evista(Nf)) 60 mg PO BEDTIME [facility]; Protocol Last Admin: 03/21/18 20:49 Dose: 60 mg Warfarin Sodium (Coumadin Tab(*)) 10 mg PO Mo@1700 [facility]; Protocol Warfarin Sodium (Coumadin Tab(*)) 7.5 mg PO SuTuWeThFrSa@1700 [facility]; Protocol Last Admin: 03/21/18 17:46 Dose: 7.5 mg Vital Signs - 8 hr 03/22/18 03/22/18 03/22/18 07:42 08:00 08:03 Temperature 98.1 F Pulse Rate 52 Respiratory 20 18 18 Rate Blood Pressure 97/49 (mmHg) O2 Sat by Pulse 99 99 Oximetry 03/22/18 03/22/18 03/22/18 09:57 11:41 12:34 Temperature 98.1 F Pulse Rate 62 Respiratory 16 19 18 Rate Blood Pressure 106/50 (mmHg) O2 Sat by Pulse 99 Oximetry 03/22/18 14:50 Temperature 97.6 F Pulse Rate 61 Respiratory 16 Rate Blood Pressure 100/56 (mmHg) O2 Sat by Pulse 100 Oximetry Oxygen Devices in Use Now: None Appearance: Middle aged female lying in bed, NAD Eyes: No Scleral Icterus Ears/Nose/Mouth/Throat: Mucous Membranes Moist Respiratory: Symmetrical Chest Expansion and Respiratory Effort, Clear to Auscultation Cardiovascular: NL Sounds; No Murmurs; No JVD, RRR, No Edema Abdominal: NL Sounds; No Tenderness; No Distention Extremities: No Clubbing, Cyanosis Skin: No Nodules or Sclerosis, - - R foot wrapped with post surgical dressing Neurological: Alert and Oriented x 3 Result Diagrams: 03/19/18 19:00 03/19/18 19:00 Microbiology and Other Data: Microbiology 03/21/18 10:00 Anaerobic Culture - Preliminary Wound - Right No Growth Day 1 03/21/18 10:00 Gram Stain - Final Foot Right Wound Culture - Preliminary No Growth Day 1 Assess/Plan/Problems-Billing Ms Hayder Livingston is a 57 yo female with 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 - Patient Problems (1) Lightheaded Current Visit: Yes Status: Acute Code(s): R42 - DIZZINESS AND GIDDINESS SNOMED Code(s): 002601322 Comment: Pt not hypotensive when she got into bed. Continue IVF per ortho. Pt improved with lying down. Monitor closely when upright. (2) Cellulitis of foot Current Visit: Yes Status: Acute Code(s): L03.119 - CELLULITIS OF UNSPECIFIED PART OF LIMB SNOMED Code(s): 371545539 Comment: Pt mild cellulitis and probable hematoma on dorsum of R foot though possible early abscess. Pt went to OR where hematoma was evacuated. Await culture from OR. Continue clindamycin. (3) H/O mitral valve replacement with mechanical valve Current Visit: Yes Status: Acute Code(s): Z95.2 - PRESENCE OF PROSTHETIC HEART VALVE SNOMED Code(s): 02477590548688 Comment: Continue home dose of coumadin. Check INR tomorrow. (4) Graves disease Current Visit: Yes Status: Acute Code(s): E05.00 - THYROTOXICOSIS W DIFFUSE GOITER W/O THYROTOXIC CRISIS SNOMED Code(s): 737209132 Comment: Continue PTU at home dose. (5) DVT prophylaxis Current Visit: Yes Status: Acute Code(s): AIT8796 - SNOMED Code(s): 204773258 Comment: Therapeutic INR (6) Full code status Current Visit: Yes Status: Acute Code(s): Z78.9 - OTHER SPECIFIED HEALTH STATUS SNOMED Code(s): 288806695
[2018-03-22] MEDS: Warfarin TAB(*) 7.5 MG PO SCH (17:40)
[2018-03-22] MEDS: Aspirin EC TAB* 81 MG TAB.EC PO SCH (20:18)
[2018-03-22] MEDS: RALOXIFENE 60 MG PO SCH (20:19)
[2018-03-22] MEDS: Propylthiouracil TAB* 50 MG PO SCH (20:27)
[2018-03-22] MEDS: Docusate CAP* 100 MG PO PRN (23:50)
[2018-03-22] MEDS: Carboxymethylcellulose/Glyceri 10 ML OPHTH.GEL lubricant eye gel BOTH EYES PRN (23:52)
[2018-03-23 05:47] LABS: ABS Basophils 0 10^3/ul (0-0.2); ABS Eosinophils 0.2 10^3/ul (0-0.6); ABS Lymphocytes 1.6 10^3/ul (1.0-4.8); ABS Monocytes 0.3 10^3/ul (0-0.8); ABS Neutrophils 1.7 10^3/ul (1.5-7.7); ABS Nucleated RBC 0 10^3/ul; Eosinophil % 5.6 % (0-6); Hematocrit 35 % (35-47); Hemoglobin 11.5 g/dl (12.0-16.0); Lymphocyte % 41.2 % (25-47); Mean Corpuscular HGB Conc 33 g/dl (31-36); Mean Corpuscular Hemoglobin 27 pg (27-31); Mean Corpuscular Volume 80 fL (80-97); Mean Platelet Volume 8.5 um3 (7.4-10.4); Nucleated Red Blood Cells % 0.1; Platelet Count 169 10^3/ul (150-450); Red Blood Count 4.35 10^6/ul (4.00-5.40); Red Cell Distribution Width 15 % (10.5-15); White Blood Count 3.9 10^3/ul (3.5-10.8)
[2018-03-23] MEDS: Clindamycin 300 MG IVPREMIX(* 300 MG/50 ML SDV IV SCH ×2 (05:47→12:10)
[2018-03-23 05:52] LABS: INR 2.44 (0.77-1.02)
[2018-03-23] MEDS: Morphine INJ* 2 MG/ML 1 ML SYRINGE (TWO MG - NEW SYRINGE VERSION) IV PRN (06:00)
[2018-03-23 06:09] LABS: EGFR Non-African American 69.4 (>60)
[2018-03-23] MEDS: Carboxymethylcellulose/Glyceri 10 ML OPHTH.GEL lubricant eye gel BOTH EYES PRN ×2 (06:23→22:35)
[2018-03-23] MEDS: Cholecalciferol TAB* 400 UNIT PO SCH (07:57)
--- NOTE | 2018-03-23 10:05 | PN ---
Progress Note - Progress Note Date of Service: 03/23/18 SOAP: Subjective: Patient seen and examined at bedside. She is feeling well, pain was inc. Denies fever, chills, CP, SOB, dizziness, nausea. Objective: []General: Well appearing, NAD RLE: Dressing CDI without surrounding erythema. Dressing changed today. Incision is CDI without any drainage. She continues to be very tender over the area of erythema . Sensation intact to light touch, cap refill less than two seconds distally. Able to wiggle toes Calves supple, nontender without erythema, edema or palpable cords Vital Signs Temp 97.7 F 03/23/18 07:28 Pulse 56 03/23/18 07:28 Resp 16 03/23/18 07:58 BP 92/46 03/23/18 07:28 Pulse Ox 98 03/23/18 07:58 Intake & Output 03/22/18 03/23/18 03/23/18 18:59 06:59 18:59 Intake Total 2578 1095 Output Total 2250 2700 0 Balance 328 -1605 0 Intake: IV Fluids 1858 100 ABX - CLINDAMYCIN 100 LR 1858 IVPB 55 ABX - CLINDAMYCIN 55 Oral 720 940 Output: Urine 2250 2700 0 Other: Estimated Void Small # Voids 4 Assessment: [] POD 2 sp I&D right foot Plan: []Await culture growth. Continue clindamycin for now. Appreciate ID and hospitalist comanagment Continue current pain medication Continue colace prn
--- NOTE | 2018-03-23 14:47 | PN ---
Subjective Date of Service: 03/23/18 Interval History: Pt is feeling much better today. No further lightheadedness. She thinks she needs to go to rehab due to the layout of her home. Objective Active Medications: Acetaminophen (Tylenol Tab*) 650 mg PO Q6H PRN PRN Reason: PAIN OR TEMPERATURE Last Admin: 03/22/18 10:40 Dose: 650 mg Aspirin (Aspirin Ec Tab*) 81 mg PO BEDTIME [facility] Last Admin: 03/22/18 20:18 Dose: 81 mg Carboxymethylcellulose/Glycerin (Refresh Optive Gel Eye Gel) 1 applic BOTH EYES Q4H PRN PRN Reason: DRY EYE Last Admin: 03/23/18 06:23 Dose: 1 applic Cholecalciferol (Vitamin D Tab*) 400 unit PO DAILY [facility] Last Admin: 03/23/18 07:57 Dose: 400 unit Diphenhydramine HCl (Benadryl Iv*) 25 mg IV Q6H PRN PRN Reason: PRURITIS Last Admin: 03/21/18 11:02 Dose: 25 mg Docusate Sodium (Colace Cap*) 100 mg PO BID PRN PRN Reason: CONSTIPATION Last Admin: 03/22/18 23:50 Dose: 100 mg Lactated Ringer's (Lactated Ringers 1000 Ml Bag*) 1,000 mls @ 75 mls/hr IV PER RATE [facility] Last Admin: 03/22/18 10:41 Dose: 75 mls/hr Clindamycin HCl/Dextrose (Cleocin 300 Mg Ivpemix(*)) 300 mg in 50 mls @ 200 mls /hr IV Q6H [facility] Last Admin: 03/23/18 12:10 Dose: 200 mls/hr Morphine Sulfate (Morphine Inj ((Syringe))*) 2 mg IV Q4H PRN PRN Reason: PAIN Last Admin: 03/23/18 06:00 Dose: 2 mg Ondansetron HCl (Zofran Inj*) 4 mg IV Q6H PRN PRN Reason: NAUSEA Oxycodone HCl (Roxycodone Tab*) 5 mg PO Q8H PRN PRN Reason: PAIN - SEVERE Last Admin: 03/22/18 23:50 Dose: 5 mg Pharmacy Profile Note (Coumadin Daily Reminder*) 1 note FOLLOW UP 1700 [facility] Last Admin: 03/22/18 17:43 Dose: 1 note Polyethyl Glycol/Propylene Glycol (Lubricant Eye Drops) 1 drop BOTH EYES Q2H PRN PRN Reason: DRY EYE Propylthiouracil (Ptu Tab*) 12.5 mg PO BEDTIME [facility] Last Admin: 03/22/18 20:27 Dose: 12.5 mg Raloxifene HCl (Evista(Nf)) 60 mg PO BEDTIME [facility]; Protocol Last Admin: 03/22/18 20:19 Dose: 60 mg Warfarin Sodium (Coumadin Tab(*)) 10 mg PO Mo@1700 [facility]; Protocol Warfarin Sodium (Coumadin Tab(*)) 7.5 mg PO SuTuWeThFrSa@1700 [facility]; Protocol Last Admin: 03/22/18 17:40 Dose: 7.5 mg Vital Signs - 8 hr 03/23/18 03/23/18 03/23/18 07:04 07:28 07:58 Temperature 97.7 F Pulse Rate 56 Respiratory 16 14 16 Rate Blood Pressure 92/46 (mmHg) O2 Sat by Pulse 98 98 Oximetry Oxygen Devices in Use Now: None Appearance: Middle aged female sitting up in a chair, NAD Eyes: No Scleral Icterus Ears/Nose/Mouth/Throat: Mucous Membranes Moist Respiratory: Symmetrical Chest Expansion and Respiratory Effort, Clear to Auscultation Cardiovascular: NL Sounds; No Murmurs; No JVD, RRR, No Edema Abdominal: NL Sounds; No Tenderness; No Distention Extremities: No Clubbing, Cyanosis Skin: No Nodules or Sclerosis Neurological: Alert and Oriented x 3 Result Diagrams: 03/23/18 05:38 03/23/18 05:38 Microbiology and Other Data: Microbiology 03/21/18 10:00 Anaerobic Culture - Preliminary Wound - Right No Growth Day 1 03/21/18 10:00 Gram Stain - Final Foot Right Wound Culture - Preliminary No Growth Day 1 Assess/Plan/Problems-Billing Ms Hayder Livingston is a 57 yo female with 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 - Patient Problems (1) Lightheaded Current Visit: Yes Status: Acute Code(s): R42 - DIZZINESS AND GIDDINESS SNOMED Code(s): 188432442 Comment: Resolved. Will continue to monitor for symptoms as her BP is soft. (2) Cellulitis of foot Current Visit: Yes Status: Acute Code(s): L03.119 - CELLULITIS OF UNSPECIFIED PART OF LIMB SNOMED Code(s): 873327848 Comment: Pt mild cellulitis and probable hematoma on dorsum of R foot though possible early abscess. Pt went to OR where hematoma was evacuated. Culture negative so far. Plan for STR once insurance approves to help with getting around. (3) H/O mitral valve replacement with mechanical valve Current Visit: Yes Status: Acute Code(s): Z95.2 - PRESENCE OF PROSTHETIC HEART VALVE SNOMED Code(s): 63253137075568 Comment: Continue home dose of coumadin. INR therapeutic. Follow up INR tomorrow. (4) Graves disease Current Visit: Yes Status: Acute Code(s): E05.00 - THYROTOXICOSIS W DIFFUSE GOITER W/O THYROTOXIC CRISIS SNOMED Code(s): 686486224 Comment: Continue PTU at home dose. (5) DVT prophylaxis Current Visit: Yes Status: Acute Code(s): RPP4412 - SNOMED Code(s): 600944864 Comment: Therapeutic INR (6) Full code status Current Visit: Yes Status: Acute Code(s): Z78.9 - OTHER SPECIFIED HEALTH STATUS SNOMED Code(s): 608711494
[2018-03-23] MEDS: Clindamycin CAP* 150 MG PO SCH (17:08)
[2018-03-23] MEDS: Warfarin TAB(*) 7.5 MG PO SCH (17:09)
[2018-03-23] MEDS: Aspirin EC TAB* 81 MG TAB.EC PO SCH (22:28)
[2018-03-23] MEDS: RALOXIFENE 60 MG PO SCH (22:28)
[2018-03-23] MEDS: Propylthiouracil TAB* 50 MG PO SCH (22:29)
[2018-03-23] MEDS: Docusate CAP* 100 MG PO PRN (22:34)
[2018-03-24] MEDS: Acetaminophen TAB* 325 MG PO PRN ×3 (00:24→22:11)
[2018-03-24] MEDS: Clindamycin CAP* 150 MG PO SCH ×4 (00:24→17:21)
[2018-03-24] MEDS: diPHENhydraMINE IV* 50 MG/ML 1 ml VIAL (BENADRYL) IV PRN (00:32)
[2018-03-24 06:12] LABS: INR 3.16 (0.77-1.02)
[2018-03-24] MEDS: Docusate CAP* 100 MG PO PRN ×2 (06:18→22:11)
[2018-03-24] MEDS: Cholecalciferol TAB* 400 UNIT PO SCH (08:02)
[2018-03-24] MEDS ORDERED: Cyclobenzaprine TAB* 10 MG PO PRN (14:26)
[2018-03-24] MEDS ORDERED: Warfarin TAB(*) 6 MG PO ONE (17:00)
--- NOTE | 2018-03-24 19:50 | PN ---
Progress Note - Progress Note Date of Service: 03/24/18 SOAP: Subjective: Pt seen and examined at bedside. Complaint of pain and muscle spasm at night last 2 nights. Denies CP, SOB, F/C Vital Signs: Temp Pulse Resp BP Pulse Ox 98.3 F 74 16 91/49 98 03/24/18 15:13 03/24/18 15:13 03/24/18 15:13 03/24/18 15:13 03/24/18 15:51 Laboratory Last Values WBC 3.9 10^3/ul (3.5-10.8) 03/23/18 05:38 RBC 4.35 10^6/ul (4.00-5.40) 03/23/18 05:38 Hgb 11.5 g/dl (12.0-16.0) L 03/23/18 05:38 Hct 35 % (35-47) 03/23/18 05:38 MCV 80 fL (80-97) 03/23/18 05:38 MCH 27 pg (27-31) 03/23/18 05:38 MCHC 33 g/dl (31-36) 03/23/18 05:38 RDW 15 % (10.5-15) 03/23/18 05:38 Plt Count 169 10^3/ul (150-450) 03/23/18 05:38 MPV 8.5 um3 (7.4-10.4) 03/23/18 05:38 Neut % (Auto) 44.1 % (38-83) 03/23/18 05:38 Lymph % (Auto) 41.2 % (25-47) 03/23/18 05:38 Patrick % (Auto) 8.4 % (0-7) H 03/23/18 05:38 Eos % (Auto) 5.6 % (0-6) 03/23/18 05:38 Baso % (Auto) 0.7 % (0-2) 03/23/18 05:38 Absolute Neuts (auto) 1.7 10^3/ul (1.5-7.7) 03/23/18 05:38 Absolute Lymphs (auto) 1.6 10^3/ul (1.0-4.8) 03/23/18 05:38 Absolute Monos (auto) 0.3 10^3/ul (0-0.8) 03/23/18 05:38 Absolute Eos (auto) 0.2 10^3/ul (0-0.6) 03/23/18 05:38 Absolute Basos (auto) 0 10^3/ul (0-0.2) 03/23/18 05:38 Absolute Nucleated RBC 0 10^3/ul 03/23/18 05:38 Nucleated RBC % 0.1 03/23/18 05:38 ESR 12 mm/Hr (0-30) 03/19/18 19:00 INR (Anticoag Therapy) 3.16 (0.77-1.02) H 03/24/18 05:46 Sodium 139 mmol/L (135-145) 03/23/18 05:38 Potassium 4.0 mmol/L (3.5-5.0) 03/23/18 05:38 Chloride 105 mmol/L (101-111) 03/23/18 05:38 Carbon Dioxide 29 mmol/L (22-32) 03/23/18 05:38 Anion Gap 5 mmol/L (2-11) 03/23/18 05:38 BUN 12 mg/dL (6-24) 03/23/18 05:38 Creatinine 0.84 mg/dL (0.51-0.95) 03/23/18 05:38 Est GFR ( Amer) 84.0 (>60) 03/23/18 05:38 Est GFR (Non-Af Amer) 69.4 (>60) 03/23/18 05:38 BUN/Creatinine Ratio 14.3 (8-20) 03/23/18 05:38 Glucose 79 mg/dL (70-100) 03/23/18 05:38 Calcium 9.3 mg/dL (8.6-10.3) 03/23/18 05:38 C-Reactive Protein 7.55 mg/L (<8.01) 03/19/18 19:00 Objective: Dressing C/D/I, NVI, Calves soft, nontender Assessment: s/p right foot I&D POD #3 Plan: Pain control - Will add Flexeril for muscle spasm Continue IV Abx per ID
[2018-03-24] MEDS: Aspirin EC TAB* 81 MG TAB.EC PO SCH (22:11)
[2018-03-24] MEDS: Carboxymethylcellulose/Glyceri 10 ML OPHTH.GEL lubricant eye gel BOTH EYES PRN (22:12)
[2018-03-24] MEDS: Propylthiouracil TAB* 50 MG PO SCH (22:13)
[2018-03-24] MEDS: RALOXIFENE 60 MG PO SCH (22:13)
[2018-03-25] MEDS: Clindamycin CAP* 150 MG PO SCH ×4 (00:36→18:04)
--- NOTE | 2018-03-25 10:05 | PN ---
Progress Note - Progress Note Date of Service: 03/25/18 SOAP: Subjective: [Patient seen and examined at bedside. She is feeling well, pain decreased. Denies fever, chills, CP, SOB, dizziness, nausea. Objective: []General: Well appearing, NAD RLE: Dressing CDI without surrounding erythema. Dressing changed today. Incision is CDI without any drainage. Sensation intact to light touch, cap refill less than two seconds distally. Able to wiggle toes Calves supple, nontender without erythema, edema or palpable cords Vital Signs Temp 97.4 F 03/25/18 07:27 Pulse 60 03/25/18 07:27 Resp 16 03/25/18 07:59 BP 98/62 03/25/18 07:33 Pulse Ox 99 03/25/18 07:27 Intake & Output 03/24/18 03/25/18 03/25/18 18:59 06:59 18:59 Intake Total 480 980 Output Total 1850 1600 Balance -1370 -620 Intake: Oral 480 980 Output: Urine 1850 1600 Assessment: [] POD 4 sp I&D right foot Plan: Continue clindamycin for now. Continue current pain medication Continue colace prn Awaiting placement
[2018-03-25] MEDS: Cholecalciferol TAB* 400 UNIT PO SCH (10:47)
--- NOTE | 2018-03-25 14:42 | PN ---
Subjective Date of Service: 03/25/18 Interval History: Pt seen in follow up consult today. She states she is feeling well. She states she has friends who have offered to let her stay in their house while they are away as there is everything she needs on one level. She is seriously considering this option as respite care at [facility] as of now is not an option. Objective Active Medications: Acetaminophen (Tylenol Tab*) 650 mg PO Q6H PRN PRN Reason: PAIN OR TEMPERATURE Last Admin: 03/24/18 22:11 Dose: 650 mg Aspirin (Aspirin Ec Tab*) 81 mg PO BEDTIME [facility] Last Admin: 03/24/18 22:11 Dose: 81 mg Carboxymethylcellulose/Glycerin (Refresh Optive Gel Eye Gel) 1 applic BOTH EYES Q4H PRN PRN Reason: DRY EYE Last Admin: 03/24/18 22:12 Dose: 1 applic Cholecalciferol (Vitamin D Tab*) 400 unit PO DAILY [facility] Last Admin: 03/25/18 10:47 Dose: 400 unit Clindamycin HCl (Cleocin Cap*) 300 mg PO Q6HR [facility] Last Admin: 03/25/18 12:26 Dose: 300 mg Cyclobenzaprine HCl (Flexeril Tab*) 10 mg PO TID PRN PRN Reason: spasm-muscle Diphenhydramine HCl (Benadryl Iv*) 25 mg IV Q6H PRN PRN Reason: PRURITIS Last Admin: 03/24/18 00:32 Dose: 25 mg Docusate Sodium (Colace Cap*) 100 mg PO BID PRN PRN Reason: CONSTIPATION Last Admin: 03/24/18 22:11 Dose: 100 mg Morphine Sulfate (Morphine Inj ((Syringe))*) 2 mg IV Q4H PRN PRN Reason: PAIN Last Admin: 03/23/18 06:00 Dose: 2 mg Ondansetron HCl (Zofran Inj*) 4 mg IV Q6H PRN PRN Reason: NAUSEA Oxycodone HCl (Roxycodone Tab*) 5 mg PO Q8H PRN PRN Reason: PAIN - SEVERE Last Admin: 03/22/18 23:50 Dose: 5 mg Pharmacy Profile Note (Coumadin Daily Reminder*) 1 note FOLLOW UP 1700 [facility] Last Admin: 03/24/18 17:34 Dose: 1 note Polyethyl Glycol/Propylene Glycol (Lubricant Eye Drops) 1 drop BOTH EYES Q2H PRN PRN Reason: DRY EYE Propylthiouracil (Ptu Tab*) 12.5 mg PO BEDTIME [facility] Last Admin: 03/24/18 22:13 Dose: 12.5 mg Raloxifene HCl (Evista(Nf)) 60 mg PO BEDTIME [facility]; Protocol Last Admin: 03/24/18 22:13 Dose: 60 mg Warfarin Sodium (Coumadin Tab(*)) 7 mg PO ONCE@1700 [facility]; Protocol Stop: 03/25/18 17:01 Vital Signs - 8 hr 03/25/18 03/25/18 03/25/18 07:27 07:33 07:59 Temperature 97.4 F Pulse Rate 60 Respiratory 16 16 Rate Blood Pressure 87/47 98/62 (mmHg) O2 Sat by Pulse 99 Oximetry 03/25/18 11:33 Temperature 98.1 F Pulse Rate 78 Respiratory 16 Rate Blood Pressure 91/60 (mmHg) O2 Sat by Pulse 99 Oximetry Oxygen Devices in Use Now: None Appearance: Thin middle aged female sitting up in a chair, NAD Eyes: No Scleral Icterus Ears/Nose/Mouth/Throat: Mucous Membranes Moist Respiratory: Symmetrical Chest Expansion and Respiratory Effort, Clear to Auscultation Cardiovascular: NL Sounds; No Murmurs; No JVD, RRR, No Edema Abdominal: NL Sounds; No Tenderness; No Distention Extremities: No Clubbing, Cyanosis Skin: - - foot not inspected today Neurological: Alert and Oriented x 3 Result Diagrams: 03/23/18 05:38 03/23/18 05:38 Microbiology and Other Data: Microbiology 03/21/18 10:00 Anaerobic Culture - Preliminary Wound - Right No Growth Day 1 03/21/18 10:00 Gram Stain - Final Foot Right Wound Culture - Preliminary No Growth Day 1 Assess/Plan/Problems-Billing Ms Hayder Livingston is a 57 yo female with 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 - Patient Problems (1) Lightheaded Current Visit: Yes Status: Acute Code(s): R42 - DIZZINESS AND GIDDINESS SNOMED Code(s): 545856826 Comment: BP remains low but pt is asymptomatic. (2) Cellulitis of foot Current Visit: Yes Status: Acute Code(s): L03.119 - CELLULITIS OF UNSPECIFIED PART OF LIMB SNOMED Code(s): 418008805 Comment: Pt mild cellulitis and probable hematoma on dorsum of R foot though possible early abscess. Pt went to OR where hematoma was evacuated. Culture is negative for growth. ? STR vs home with VNS and private hire aide help. Case management working with patient on a plan. (3) H/O mitral valve replacement with mechanical valve Current Visit: Yes Status: Acute Code(s): Z95.2 - PRESENCE OF PROSTHETIC HEART VALVE SNOMED Code(s): 88734345784465 Comment: Coumadin dose reduced to 6mg last night as INR took a big jump. Give 7mg tonight and recheck INR tomorrow. (4) Graves disease Current Visit: Yes Status: Acute Code(s): E05.00 - THYROTOXICOSIS W DIFFUSE GOITER W/O THYROTOXIC CRISIS SNOMED Code(s): 526679574 Comment: Continue PTU at home dose. (5) DVT prophylaxis Current Visit: Yes Status: Acute Code(s): GRF9401 - SNOMED Code(s): 086659601 Comment: Therapeutic INR (6) Full code status Current Visit: Yes Status: Acute Code(s): Z78.9 - OTHER SPECIFIED HEALTH STATUS SNOMED Code(s): 002854174
[2018-03-25] MEDS ORDERED: Warfarin TAB(*) 5 MG PO ONE (17:00)
[2018-03-25] MEDS ORDERED: Warfarin TAB(*) 2 MG PO ONE (17:00)
[2018-03-25] MEDS: Acetaminophen TAB* 325 MG PO PRN (20:12)
[2018-03-25] MEDS: Aspirin EC TAB* 81 MG TAB.EC PO SCH (20:13)
[2018-03-25] MEDS: RALOXIFENE 60 MG PO SCH (20:13)
[2018-03-25] MEDS: Propylthiouracil TAB* 50 MG PO SCH (20:13)
[2018-03-26] MEDS: Carboxymethylcellulose/Glyceri 10 ML OPHTH.GEL lubricant eye gel BOTH EYES PRN ×2 (00:18→11:43)
[2018-03-26] MEDS: Clindamycin CAP* 150 MG PO SCH ×3 (00:18→11:43)
[2018-03-26] MEDS: Acetaminophen TAB* 325 MG PO PRN ×2 (02:14→09:01)
[2018-03-26 05:56] LABS: INR 3.79 (0.77-1.02)
[2018-03-26] MEDS: Cholecalciferol TAB* 400 UNIT PO SCH (09:01)
--- NOTE | 2018-03-26 09:50 | PN ---
Progress Note - Progress Note Date of Service: 03/26/18 Note: Pt seen today to discuss her coumadin dosing. Her INR is up to 3.79 today despite receiving 6mg on 03/24 and 7mg on 03/25. Because of this will send the patient out on 6mg all days of the week except Mon when she will take 8mg. She has an INR machine and checks her INR at home. Will ask that she check her INR on Monday and report the value to Dr. Robbins and await recommendations on what to do with her dose. I suspect her INR is not stable on her usual dose of coumadin in the hospital as she is not eating her usual diet. She will remain on clindamycin for 2 more days to treat a cellulitis that was present on admission.
--- NOTE | 2018-03-26 10:19 | PN ---
Progress Note - Progress Note Date of Service: 03/26/18 SOAP: Subjective: Pt sitting comfortably in chair. Minimal complaint of pain. States pain is worse at night. Denies F/C, N/T. Vital Signs: Temp Pulse Resp BP Pulse Ox 97.5 F 60 18 105/53 100 03/26/18 07:12 03/26/18 07:12 03/26/18 09:01 03/26/18 07:12 03/26/18 09:01 Laboratory Last Values WBC 3.9 10^3/ul (3.5-10.8) 03/23/18 05:38 RBC 4.35 10^6/ul (4.00-5.40) 03/23/18 05:38 Hgb 11.5 g/dl (12.0-16.0) L 03/23/18 05:38 Hct 35 % (35-47) 03/23/18 05:38 MCV 80 fL (80-97) 03/23/18 05:38 MCH 27 pg (27-31) 03/23/18 05:38 MCHC 33 g/dl (31-36) 03/23/18 05:38 RDW 15 % (10.5-15) 03/23/18 05:38 Plt Count 169 10^3/ul (150-450) 03/23/18 05:38 MPV 8.5 um3 (7.4-10.4) 03/23/18 05:38 Neut % (Auto) 44.1 % (38-83) 03/23/18 05:38 Lymph % (Auto) 41.2 % (25-47) 03/23/18 05:38 [place] % (Auto) 8.4 % (0-7) H 03/23/18 05:38 Eos % (Auto) 5.6 % (0-6) 03/23/18 05:38 Baso % (Auto) 0.7 % (0-2) 03/23/18 05:38 Absolute Neuts (auto) 1.7 10^3/ul (1.5-7.7) 03/23/18 05:38 Absolute Lymphs (auto) 1.6 10^3/ul (1.0-4.8) 03/23/18 05:38 Absolute Monos (auto) 0.3 10^3/ul (0-0.8) 03/23/18 05:38 Absolute Eos (auto) 0.2 10^3/ul (0-0.6) 03/23/18 05:38 Absolute Basos (auto) 0 10^3/ul (0-0.2) 03/23/18 05:38 Absolute Nucleated RBC 0 10^3/ul 03/23/18 05:38 Nucleated RBC % 0.1 03/23/18 05:38 ESR 12 mm/Hr (0-30) 03/19/18 19:00 INR (Anticoag Therapy) 3.79 (0.77-1.02) H 03/26/18 05:26 Sodium 139 mmol/L (135-145) 03/23/18 05:38 Potassium 4.0 mmol/L (3.5-5.0) 03/23/18 05:38 Chloride 105 mmol/L (101-111) 03/23/18 05:38 Carbon Dioxide 29 mmol/L (22-32) 03/23/18 05:38 Anion Gap 5 mmol/L (2-11) 03/23/18 05:38 BUN 12 mg/dL (6-24) 03/23/18 05:38 Creatinine 0.84 mg/dL (0.51-0.95) 03/23/18 05:38 Est GFR ( Amer) 84.0 (>60) 03/23/18 05:38 Est GFR (Non-Af Amer) 69.4 (>60) 03/23/18 05:38 BUN/Creatinine Ratio 14.3 (8-20) 03/23/18 05:38 Glucose 79 mg/dL (70-100) 03/23/18 05:38 Calcium 9.3 mg/dL (8.6-10.3) 03/23/18 05:38 C-Reactive Protein 7.55 mg/L (<8.01) 03/19/18 19:00 Objective: Dressing changed, Incision C/D/I. No signs of active infection. No edema. Calves soft, nontender. NVI Assessment: s/p right foot I&D POD #5 Plan: Continue Clindamycin Pain control Postop shoe - WBAT D/C home today Follow up with Dr. Luong 10-14 days
[2018-03-26 11:40] VITALS: BP 94/54
[2018-03-26] MEDS ORDERED: Warfarin TAB(*) 10 MG PO SCH (17:00)
--- NOTE | 2018-04-07 08:43 | DS ---
DISCHARGE SUMMARY: DATE OF ADMISSION: 03/19/18. DATE OF DISCHARGE: 03/26/18. ATTENDING PHYSICIAN: Dr. Cameron Luong.* (DICTATED BY MERLENE MAYFIELD) PRINCIPAL DIAGNOSES: 1. Right foot hematoma. 2. Right foot cellulitis. SECONDARY DIAGNOSES: 1. Heart disease. 2. History of deep venous thrombosis. 3. Endocarditis. 4. Thyroid problems. 5. Anemia. PRINCIPAL PROCEDURE: Right foot irrigation and debridement. 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 She dropped a heavy table on the lateral part of her right foot on . She subsequently developed a hematoma. She is on Coumadin for mitral valve replacement. Over the next couple of days, she started developing increased pain, swelling, and started to develop redness at the lateral foot. She called Dr. Luong's office and was seen for an evaluation. She denies any fevers or chills. She was then sent to the hospital as a direct admit on . HOSPITAL COURSE: She was again admitted to the hospital on Dr. Luong's service on 03/19/18. She was consulted on by Dr. Mckinney from Infectious Disease. She was started on clindamycin 300 mg every 6 hours. She was also consulted on by the hospitalist service for comorbidities. She resumed her Coumadin for DVT prophylaxis well throughout the hospital course. She was taken to the operating room on 03/21/[address] Luong for right foot irrigation and debridement. The surgery was performed without any complication. She was then taken to the recovery room and subsequently surgical stay unit in a stable condition. Her vital signs remained stable throughout the hospital course including remaining afebrile. She participated in physical therapy and occupational therapy without any complications or problems. She continued her clindamycin IV until she was discharged from the hospital. She was discharged home in a stable condition on 03/26/18. DISCHARGE INSTRUCTIONS: Keep dressing on right foot clean, dry, and intact. Call Dr. Luong's office for increased redness, drainage, pain, fever, and chills, and go to the emergency room with chest pain and shortness of breath. Follow up with Dr. Luong in his office in 10 to 14 days, sooner if there are any concerns. Call [phone] to make an appointment if there are any concerns. Antibiotics, clindamycin 300 mg take 1 by mouth 3 times a day. MERLENE MAYFIELD [id number]/[facility] #: [id number] [facility], [place]
== END 2018-03-26 11:50 | disposition home or self-care (01) | DRG 581 ==
LOC: SSU 17:12
PROVIDERS: ADMIT Orthopaedic Surgery; ATTEND Hospitalist
PROC: 0KBV0ZZ Excision of Right Foot Muscle, Open Approach (ICD-10-PCS; principal; 2018-03-21 09:00)
DX: L03.115 Cellulitis of right lower limb (principal); S90.31XA Contusion of right foot, initial encounter; W22.8XXA Striking against or struck by other objects, initial encounter; I51.9 Heart disease, unspecified; R79.1 Abnormal coagulation profile; M81.0 Age-related osteoporosis without current pathological fracture; E05.00 Thyrotoxicosis with diffuse goiter without thyrotoxic crisis or storm; D64.9 Anemia, unspecified; Y92.9 Unspecified place or not applicable; Z79.01 Long term (current) use of anticoagulants; Z95.2 Presence of prosthetic heart valve; Z79.1 Long term (current) use of non-steroidal anti-inflammatories (NSAID); Z79.82 Long term (current) use of aspirin; Z79.899 Other long term (current) drug therapy; Z88.5 Allergy status to narcotic agent; Z82.49 Family history of ischemic heart disease and other diseases of the circulatory system; Z82.3 Family history of stroke; Z80.9 Family history of malignant neoplasm, unspecified
CPT/HCPCS: 36415; 74177; 80048; 80053; 81003; 81015; 83605; 83690; 84484; 85025; 85610; 85652; 86140; 87070; 87073; 87086; 87102; 87205; 93005; A9270-GY; G8987-GO-CK; G8988-GO-CI; J1200; J1885; J2001; J2250; J2270; J2543; J2704; J2795; J3010; Q9967

== ENCOUNTER 2019-04-30 23:54 | Emergency (ER) | payer OTHER ==
--- OUTSIDE RECORDS SUMMARY | 2019-05-01 00:05 | XMS REPORT | Continuity of Care Document ---
:1960 External Reference #:[id number] Author Name Nickie Robbins M.D. Address [address] [place] [address] Care Team Providers Name Role Phone Nickie Robbins - Family Medicine Care Team Information Cloth Classer [phone] HeenaBarb salas - [place] Care Team Information Cloth Classer Problems Active Problems Provider Date Acute maxillary sinusitis Beni Faust M.D. Onset: 04/18/2015 Heart valve replacement Nickie Robbins M.D. Onset: 11/30/2017 Osteoporosis Nickie Robbins M.D. Onset: 11/30/2017 Toxic diffuse goiter with no crisis Nickie Robbins M.D. Onset: 11/30/2017 Social History Type Date Description Comments Sex Unknown Tobacco Use Start: Unknown Never Smoked Cigarettes ETOH Use Social Alcohol 2 glasses of wine weekly. Tobacco Use Start: Unknown Patient has never smoked Smoking Status Reviewed: 04/18/19 Patient has never smoked Exercise Does not exercise this past year as Type/Frequency has been ill 2019. Allergies, Adverse Reactions, Alerts Active Allergies Reaction Severity Comments Date Methimazole 01/21/2011 Milk-related Compounds 01/21/2011 Versed 01/21/2011 Demerol 01/21/2011 Adhesives 03/17/2015 Medications Active Medications SIG Qnty Indications Ordering Date Provider Nebulizer w/ tubing kits - 1units J20.9 Nickie Nur 12/26/2017 Misc dx: bronchitis Payal Robbins Inr Machine 1units Z95.2 Nickie Nur 11/30/2017 Payal Robbins Coumadin Take 2 Tablets By 60tabs Z95.2 Sushma Santos 03/23/2017 5mg Tablets Mouth On Sundays. ALEXI Jacobs Take 1 And 1/2 Tablets By Mouth Monday-Monday Propylthiouracil 1/2 PO qd 30tabs Unknown 50mg Tablets Coumadin 1 day alt. 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 03/29/2019 Injection Immunizations CPT Code Status Date Vaccine Lot # [id number] Given 03/29/2019 Zoster (Shingles) Vaccine (HZV), Recombinant, [id number] Subunit, Adjuvanted 83280 Given 05/28/2018 Influenza Vac, Quadriv[place], [place] [address] Given 05/11/2017 Influenza Vac, Quadrivalent, Slit Virus, Im [id number] Given 03/17/2015 Tdap Tetanus, W Pertussis [id number] Vital Signs Date Vital Result Comment 04/18/2019 4:18pm BP Systolic 98 mmHg BP Diastolic 60 mmHg Heart Rate 80 /min Body Temperature 97.7 F Respiratory Rate 12 /min Height 61.5 inches 5'1.50" measured Weight 124.00 lb BMI (Body Mass Index) 23.0 kg/m2 04/06/2019 9:25am BP Systolic 100 mmHg BP Diastolic 64 mmHg Heart Rate 66 /min Body Temperature 98.3 F Respiratory Rate 16 /min Height 62.25 inches 5'2.25" Weight 126.00 lb BMI (Body Mass Index) 22.9 kg/m2 Results Test Date Facility Test Result H/L Range Note Comprehensive Metabolic 04/06/2019 [facility] Sodium 142 mEq/L 134-149 Prof Potassium 4.3 mEq/L 3.6-5.5 Chloride 106 mEq/L 94-112 Carbon Dioxide 29 mEq/L 21-32 Glucose 83 mg/dL 70-105 BUN 19 mg/dL 6-26 Creatinine 0.8 mg/dL 0.6-1.4 BUN/Creat Ratio 23.8 CALC 8.0-36.0 Calcium 9.6 mg/dL 8.6-10.2 Total Protein 6.9 g/dL 6.4-8.3 Albumin 4.7 g/dL 3.8-5.5 Globulin 2.2 g/dL 2.0-4.8 A/G Ratio 2.1 CALC 0.6-2.3 Alk. Phosphatase 49 U/L 30-110 Alt (SGPT) 16 U/L 7-35 Ast (Sgot) 23 U/L 5-34 Total Bilirubin 1.4 mg/dL High 0.2-1.3 GFR Non- >60 ml/min/1.73m^ >=60 GFR >60 ml/min/1.73m^ >=60 Lipid Profile 04/06/2019 [facility] Cholesterol 238 mg/dL High 120-200 Triglycerides 142 mg/dL 30-200 HDL Cholesterol 82 mg/dL 30-85 LDL (Calculated) 128 CALC 0-129 VLDL Cholesterol 28 mg/dL 0-50 HDL Risk Factor 2.9 CALC 0.0-4.4 CBC Electronic Fma 04/06/2019 [facility] WBC 5.3 x10^3/UL 4.0- 10.0 RBC 4.98 x10^6/UL 3.93-6.00 HGB 13.2 g/dL 12.0-17.0 HCT 41 % 35-50 MCV 82.1 fL 80.0-95.0 MCH 26.5 pg 25.6-32.2 MCHC 32.3 g/dL 32.2-36.0 RDW-CV 14.5 % High 11.6-14.4 PLT 183 x10^3/UL 163-400 MPV 11.3 fL 9.4-12.4 Tera# 2.36 x10^3/UL 1.56-6.13 Lymph# 2.24 x10^3/UL 1.18-3.74 [place]# 0.52 x10^3/UL 0.24-0.82 Eos # 0.2 x10^3/UL 0.0-0.5 Baso # 0.03 x10^3/UL 0.01-0.08 Tera% 44.3 % 34.0-70.0 Lymph % 42.1 % 20.0-52.0 [place]% 9.8 % 5.0-12.0 Eos% 3.2 % 0.7-7.0 Baso% 0.6 % 0.1-1.2 Laboratory test 04/06/2019 [facility] TSH 6.64 mIU/L High 0.50- 6.00 1 finding Vitamin D25 35 30-100 Free T4 1.05 ng/dL 0.75-1.54 Measles/Mumps/Rubella 11/09/2018 [facility] Rubeola >300.0 Immune 2, 3 Immunity [address] [facility] Ab, IgG AU/mL >29.9 [place] [address] (607)- - Mumps Abs, IgG 70.9 AU/mL Immune >10.9 4 Rubella Antibodies, IgG 27.90 index Immune >0.99 5 CBC Electronic ([facility]) 11/09/2018 [facility] WBC 5.05 4.0-10.0 (607)- - RBC 4.94 3.93-6.0 Hemoglobin (Fma/CMC/CTX) 12.9 g/dL 12.0-17.0 Hematocrit (Fma/CMC/CTX) 40.4 % 35.0-50.0 Mean Corpuscular Vol 81.8 fL 80-95 Mean Corpuscular Hemoglobin 26.1 pg 25.6-32.2 Mean Corpuscular Hemo Concen 31.9 g/dL Low 32.2-36.0 Platelets 165 10^3/ul 163-400 RDW-CV 14.6 High 11.6-14.4 Mean Platelet Volume 11.4 fL 8.0-12.4 Absolute Neutrophils BLD 2.93 1.56-6.13 Absolute Lymphocytes 1.54 1.18-3.74 Absolute Monocytes BLD Auto 0.45 0.24-0.82 Absolute Eos Blood 0.09 0.04-0.54 Absolute Basophils 0.03 0.01-0.08 Neutrophil % 58 % 34.0-70.0 Lymph% 30.5 % 20.0-52.0 Monocytes % 8.9 % 5.0-12.0 Eos % 1.8 % 0.7-7.0 Basophil% 0.6 % 0-1.2 Ua - Micro (Fma) 11/09/2018 [facility] Appearance clear (607)- - Color yellow Glucose, Urine (Fma/CMC/CTX) - Bilirubin - Ketones - SP Grav 1.010 Blood - PH 7.0 Protein - Urobil 0.2 Nitrite - Leukocytes (Fma/CMC/Centrex) small Hyaline - /Lpf Granular - /Lpf WBC (Fma,Centrex) 4-8 RBC - Mucus (Fma/CBC/Centrex) - /Lpf Epith few /Lpf Bacteria trace /Hpf Amorphous (Fma/CMC/Centrex) - /Lpf Crystals, Fluid (Fma/CMC/CTX) - Comprehensive Metabolic 11/09/2018 [facility] Sodium 137 mEq/L 134-149 Prof Potassium 4.2 mEq/L 3.6-5.5 Chloride 101 mEq/L 94-112 Carbon Dioxide 26 mEq/L 21-32 Glucose 97 mg/dL 70-105 BUN 18 mg/dL 6-26 Creatinine 0.8 mg/dL 0.6-1.4 BUN/Creat Ratio 22.5 CALC 8.0-36.0 Calcium 9.6 mg/dL 8.6-10.2 Total Protein 7.1 g/dL 6.4-8.3 Albumin 4.5 g/dL 3.8-5.5 Globulin 2.6 g/dL 2.0-4.8 A/G Ratio 1.7 CALC 0.6-2.3 Alk. Phosphatase 51 U/L 30-110 Alt (SGPT) 17 U/L 7-35 Ast (Sgot) 26 U/L 5-34 Total Bilirubin 0.8 mg/dL 0.2-1.3 GFR Non- >60 ml/min/1.73m^ >=60 GFR >60 ml/min/1.73m^ >=60 Laboratory test 11/09/2018 [facility]) Free T4 1.06 ng/dL 0.75- 1.54 finding TSH 2.93 mIU/L 0.50-6.00 1 RESULTS VERIFIED BY REPEAT ANALYSIS 2 1 sst 3 Negative <25.0 Equivocal 25.0 - 29.9 Positive >29.9 Presence of antibodies to Rubeola is presumptive evidence of immunity except when acute infection is suspected. 4 Negative <9.0 Equivocal 9.0 - 10.9 Positive >10.9 A positive result generally indicates past exposure to Mumps virus or previous vaccination. 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 knee, initial encounter W01.10xA Fall same lev from slip/trip w strike agnst unsp obj, init R94.6 Abnormal results of thyroid function studies Office Visit 04/01/2019 2:15p Main Office Nickie Nur Z11.1 Encounter for Payal Robbins screening for respiratory tuberculosis Office Visit 12/18/2018 1:30p Main Office Kalpana S00.86xA Insect bite RODO CruzP (nonvenomous) of other part of head, init encntr W57.xxxA Bit/stung by nonvenom insect & oth nonvenom arthropods, init Office Visit 11/28/2018 2:00p Main Office Nickie Nur M25.519 Pain in Payal Robbins unspecified shoulder J01.90 Acute sinusitis, unspecified E78.49 Other hyperlipidemia E55.9 Vitamin D deficiency, unspecified Office Visit 11/09/2018 3:15p Main Office Kalpana Cruz, R53.83 Other fatigue [employer] 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 examination without abnormal findings 04/18/2019 Z95.2 Presence of prosthetic heart valve Nickie Robbins M.D. 04/18/2019 Z79.01 long term care administrator (current) use of anticoagulants Nickie Robbins M.D. 04/18/2019 E05.00 Thyrotoxicosis with diffuse goiter Nickie Robbins M.D. without thyrotoxic crisis or storm 04/18/2019 M81.0 Age-related osteoporosis without current Nickie Robbins M.D. pathological fracture 04/18/2019 G47.09 Other insomnia Nickie Robbins M.D. 04/06/2019 S80.211A Abrasion, right knee, initial encounter TANIYA Munguia 04/06/2019 Z00.00 Encntr for general adult medical exam w/o Nickie Robbins M.D. abnormal findings 04/06/2019 W01.10xA Fall on same level from slipping, TANIYA Munguia tripping and stumbling with subsequent striking against unspecified object, initial encounter 04/06/2019 E55.9 Vitamin D deficiency, unspecified Nickie Robbins M.D. 04/06/2019 R94.6 Abnormal results of thyroid function TANIYA Munguia studies 04/06/2019 R94.6 Abnormal results of thyroid function Nickie Robbins M.D. studies 04/01/2019 Z11.1 Encounter for screening for respiratory Nickie Robbins M.D. tuberculosis 03/29/2019 Z23 Encounter for immunization Nickie Robbins M.D. 03/29/2019 Z11.1 Encounter for screening for respiratory Nickie Robbins M.D. tuberculosis 12/18/2018 S00.86xA Insect bite (nonvenomous) of other part Kalpana Anthony, [facility] of head, initial enc 12/18/2018 W57.xxxA Bitten or stung by nonvenomous insect and Kalpana Gomezbhart [facility] other nonvenomous 11/28/2018 M25.519 Pain in unspecified shoulder Nickie Robbins M.D. 11/28/2018 J01.90 Acute sinusitis, unspecified Nickie Robbins M.D. 11/28/2018 E78.49 Other hyperlipidemia Nickie Robbins M.D. 11/28/2018 E55.9 Vitamin D deficiency, unspecified Nickie Robbins M.D. 11/09/2018 R53.83 Other fatigue [facility], [facility] 11/09/2018 R53.81 Other malaise [facility], [facility] 11/09/2018 I95.0 Idiopathic hypotension [facility], [facility] 11/09/2018 R42 Dizziness and giddiness [facility], [facility] 11/09/2018 R35.0 Frequency of micturition Kalpana Anthony, [facility] 11/05/2018 Z01.84 Encounter for antibody response Maru Nguyen, ALEXI examination 11/05/2018 J01.90 Acute sinusitis, unspecified Maru Nguyen, ALEXI 11/05/2018 Z23 Encounter for immunization Maru Nguyen NP Plan of Treatment Future Appointment(s):04/22/2019 9:30 am - Nickie Robbins M.D. at [facility]04/19/2019 3:30 pm - Nickie Robbins M.D. at [facility]04/18/2019 - Nickie Robbins M.D.Z00.00 Encounter for general adult medical examination without abnormal findingsComments:You are in excellent general health. I recommend regular physical exams with attention to good nutrition and exercise, eye exams every other year, and dental exams twice yearly. Goals:2 fresh fruits daily3 helpings of fresh green and multicolored vegetablesEat from the whole color spectrum. 40-60 Oz water dailyMOVE YOUR BODY. Bodies were made to be moved. exercise 30 minutes at least 4-5 times upjyciD21.2 Presence of prosthetic heart nyybtM37.01 long term care administrator (current) use of lwoptbycyqncxoK13.00 Thyrotoxicosis with diffuse goiter without thyrotoxic crisis or ozpadI29.0 Age-related osteoporosis without current pathological kvaeecraZ45.09 Other insomniaComments:[email or web address]-[email or web address] like valerian is ok with coumadin.AllComments: Medication Management Patient Understands medications she's taking? Yes No Are there Barriers to Adherence? Yes No Has the patient been asked about herbal supplements and therapies, and OTC meds? Yes No Functional Status Description No Information Available Mental Status Description No Information Available Referrals Description No Information Available
--- OUTSIDE RECORDS SUMMARY | 2019-05-01 00:05 | XMS REPORT | Continuity of Care Document ---
:1960 External Reference #:[id number] Author Name TANIYA Munguia Address [address] [place] [address] Care Team Providers Name Role Phone Nickie Robbins - Family Medicine Care Team Information Trains Service Conductor Barb Fernandes - Floral Design Teacher Care Team Information Trains Service Conductor [phone] Problems Active Problems Provider Date Acute maxillary [...] Patient has never smoked Smoking Status Reviewed: 11/05/18 Patient has never smoked Exercise Exercises regularly walks 10 minutes a Type/Frequency day. to the gym every 10 days on the treadmill. 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 03/29/2019 Injection Immunizations CPT Code Status Date Vaccine Lot # [id number] Given 03/29/2019 Zoster (Shingles) Vaccine (HZV), Recombinant, [id number] Subunit, Adjuvanted 93358 Given 05/28/2018 Influenza Vac, Quadriv[place], [place] [address] Given 05/11/2017 Influenza Vac, Quadrivalent, Slit Virus, Im [id number] Given 03/17/2015 Tdap Tetanus, W Pertussis [id number] Vital Signs Date Vital Result Comment 04/06/2019 9:25am BP Systolic 100 mmHg BP Diastolic 64 mmHg Heart Rate 66 /min Body Temperature 98.3 F Respiratory Rate 16 /min Height 62.25 inches 5'2.25" Weight 126.00 lb BMI (Body Mass Index) 22.9 kg/m2 12/18/2018 1:33pm BP Systolic 112 mmHg BP Diastolic 62 mmHg Heart Rate 72 /min Body Temperature 98.2 F Height 62.25 inches 5'2.25" Weight 124.00 lb BMI (Body Mass Index) 22.5 kg/m2 Results Test Date Facility Test Result H/L Range Note Comprehensive Metabolic 04/06/2019 Dipesh Bates([facility]) Sodium 142 mEq/L 134-149 Prof Potassium 4.3 [...] >60 ml/min/1.73m^ >=60 Lipid Profile 04/06/2019 Dipesh Bates([facility]) Cholesterol 238 mg/dL High 120-200 Triglycerides 142 mg/dL 30-200 HDL Cholesterol 82 mg/dL 30-85 LDL (Calculated) 128 CALC 0-129 VLDL Cholesterol 28 mg/dL 0-50 HDL Risk Factor 2.9 CALC 0.0-4.4 CBC Electronic Fma 04/06/2019 Dipesh Jana([facility]) WBC 5.3 x10^3/UL 4.0- 10.0 RBC 4.98 x10^6/UL 3.93-6.00 HGB 13.2 g/dL 12.0-17.0 HCT 41 % 35-50 MCV 82.1 fL 80.0-95.0 MCH 26.5 pg 25.6-32.2 MCHC 32.3 g/dL 32.2-36.0 RDW-CV 14.5 % High 11.6-14.4 PLT 183 x10^3/UL 163-400 MPV 11.3 fL 9.4-12.4 Tera# 2.36 x10^3/UL 1.56-6.13 Lymph# 2.24 x10^3/UL 1.18-3.74 Woodson# 0.52 x10^3/UL 0.24-0.82 Eos # 0.2 x10^3/UL 0.0-0.5 Baso # 0.03 x10^3/UL 0.01-0.08 Tera% 44.3 % 34.0-70.0 Lymph % 42.1 % 20.0-52.0 Woodson% 9.8 % 5.0-12.0 Eos% 3.2 % 0.7-7.0 Baso% 0.6 % 0.1-1.2 Laboratory test 04/06/2019 Landon Jana([facility]) TSH 6.64 mIU/L High 0.50- 6.00 1 finding Vitamin D25 35 30-100 Free T4 1.05 ng/dL 0.75-1.54 Measles/Mumps/Rubella 11/09/2018 [facility] Rubeola >300.0 Immune 2, [address] Ab, IgG AU/mL >29.9 [place] [address] (607)- - Mumps Abs, IgG 70.9 AU/mL Immune >10.9 4 Rubella Antibodies, IgG 27.90 index Immune >0.99 5 CBC Electronic ([facility]) 11/09/2018 [facility] WBC 5.05 4.0-10.0 (607)- - RBC 4.94 3.93-6.0 Hemoglobin (Fma/CMC/CTX) 12.9 g/dL 12.0-17.0 Hematocrit (a/CMC/CTX) 40.4 % 35.0-50.0 Mean Corpuscular Vol 81.8 [...] % 0-1.2 Ua - Micro (Fma) 11/09/2018 [facility] Appearance clear (607)- - Color yellow Glucose, Urine (Fma/CMC/CTX) - Bilirubin - Ketones - SP Grav 1.010 Blood - PH 7.0 Protein - Urobil 0.2 Nitrite - Leukocytes (Fma/CMC/Centrex) small Hyaline - /Lpf Granular - /Lpf WBC (Fma,Centrex) 4-8 RBC - Mucus (Fma/CBC/Centrex) - /Lpf Epith few /Lpf Bacteria trace /Hpf Amorphous (Fma/CMC/Centrex) - /Lpf Crystals, Fluid (Fma/CMC/CTX) - Comprehensive Metabolic 11/09/2018 Landon Jana([facility]) Sodium 137 mEq/L 134-149 Prof Potassium 4.2 [...] GFR >60 ml/min/1.73m^ >=60 Laboratory test 11/09/2018 Dipesh Bates([facility]) Free T4 1.06 ng/dL 0.75- 1.54 [...] >0.99 Procedures Date Code Description Status 11/27/2018 [id number] Mammogram Completed 06/23/2017 [id number] Mammogram Completed 01/14/2016 [id number] Mammogram Completed 07/24/2013 [id number] Colonoscopy Completed 07/24/2012 [id number] Mammogram Completed Medical Devices Description No Information Available Encounters Type Date Location Provider Dx Diagnosis Office Visit 04/06/2019 [facility] Office Kalpana S80.211A Abrasion, right 11:45a 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, 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 knee, initial encounter W01.10xA Fall same lev from slip/trip w strike agnst unsp obj, init Office Visit 12/18/2018 1:30p Main Office Kalpana S00.86xA Insect bite Anthony, 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 (nonvenomous) of other part of head, init encntr W57.xxxA Bit/stung by nonvenom insect & oth nonvenom arthropods, init Office Visit 11/28/2018 2:00p Main Office Nickie Nur M25.519 Pain in Payal Robbins unspecified shoulder J01.90 Acute sinusitis, unspecified E78.49 Other hyperlipidemia E55.9 Vitamin D deficiency, unspecified Office Visit 11/09/2018 3:15p Main Office Kalpana Cruz, R53.83 Other fatigue 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 R53.81 Other malaise I95.0 Idiopathic hypotension R42 Dizziness and giddiness R35.0 Frequency of micturition Office Visit 11/05/2018 7:00p Main Office Maru Ross Z01.84 Encounter for ALEXI Nguyen antibody response examination J01.90 Acute sinusitis, unspecified Z23 Encounter for immunization Assessments Date Code Description Provider 04/06/2019 S80.211A Abrasion, right knee, initial encounter [...] S00.86xA Insect bite (nonvenomous) of other part TANIYA Munguia of head, initial enc 12/18/2018 W57.xxxA Bitten or stung by nonvenomous insect and TANIYA Munguia other nonvenomous 11/28/2018 M25.519 Pain in unspecified shoulder Nickie Robbins M.D. 11/28/2018 J01.90 Acute sinusitis, unspecified Nickie Robbins M.D. 11/28/2018 E78.49 Other hyperlipidemia Nickie Robbins M.D. 11/28/2018 E55.9 Vitamin D deficiency, unspecified Nickie Robbins M.D. 11/09/2018 R53.83 Other fatigue TANIYA Munguia 11/09/2018 R53.81 Other malaise TANIYA Munguia 11/09/2018 I95.0 Idiopathic hypotension TANIYA Munguia 11/09/2018 R42 Dizziness and giddiness Kalpana Cruz, [facility] 11/09/2018 R35.0 Frequency of micturition Kalpana Cruz, [facility] 11/05/2018 Z01.84 Encounter for antibody response Maru Nguyen, ALEXI examination 11/05/2018 J01.90 Acute sinusitis, unspecified Maru Nguyen, ALEXI 11/05/2018 Z23 Encounter for immunization Maru Nguyen NP Plan of Treatment Future Appointment(s):04/18/2019 5:00 pm - Nickie Robbins M.D. at Main Fvrnrj2804/06/2019 - Kalpana Cruz, FNPS80.211A Abrasion, right knee, initial encounterComments:this is irritated skin, probably being made more irritated by the volume and intensity of interventionpull back to: gentle soap and water washing, no more than once per daypat. to dry, then cover with aquaphor/vaseline /cetaphil-- a thick ointment to cover, protect-- nothing medicatednonadherant gauze for a few more days, I suspect it ought be open to air in the near futureCall KARLEE if condition changes/worsens in any wayW01.10xA Fall on same level from slipping, tripping and stumbling with subsequent striking against unspecified object, initial encounter Functional Status Description No Information Available Mental Status Description No Information Available Referrals Description No Information Available
--- OUTSIDE RECORDS SUMMARY | 2019-05-01 00:05 | XMS REPORT | Continuity of Care Document ---
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 03/29/2019 Injection Immunizations CPT Code Status Date Vaccine Lot # [id number] Given 03/29/2019 Zoster (Shingles) Vaccine (HZV), Recombinant, [id number] Subunit, Adjuvanted 10441 Given 05/28/2018 Influenza Vac, Quadriv[place], [place] [address] Given 05/11/2017 Influenza Vac, Quadrivalent, Slit Virus, Im [id number] 50298 Given 03/17/2015 Tdap Tetanus, W Pertussis [id number] [...] Date Facility Test Result H/L Range Note Laboratory test 04/06/2019 Landon Jana([facility]) TSH <pending> 0.5-5.0 finding Vitamin D, 25 Hydroxy <pending> ng/mL 30-100 Measles/Mumps/Rubella 11/09/2018 [facility] Rubeola >300.0 Immune 1, 2 Immunity [address] [facility] Ab, IgG AU/mL >29.9 [place] [address] (607)- - Mumps Abs, IgG 70.9 AU/mL Immune >10.9 3 Rubella Antibodies, IgG 27.90 index Immune >0.99 4 CBC Electronic ([facility]) 11/09/2018 [facility] WBC 5.05 4.0-10.0 (607)- - RBC 4.94 [...] Basophil% 0.6 % 0-1.2 Ua - Micro ([facility]) 11/09/2018 [facility] Appearance clear (607)- - Color yellow Glucose, Urine (Fma/CMC/CTX) - Bilirubin - Ketones - SP Grav 1.010 Blood - PH 7.0 Protein - Urobil 0.2 Nitrite - Leukocytes (Fma/CMC/Centrex) small Hyaline - /Lpf Granular - /Lpf WBC (Fma,Centrex) 4-8 RBC - Mucus (Fma/CBC/Centrex) - /Lpf Epith few /Lpf Bacteria trace /Hpf Amorphous (Fma/CMC/Centrex) - /Lpf Crystals, Fluid (Fma/CMC/CTX) - Comprehensive Metabolic 11/09/2018 Dipesh Jana([facility]) Sodium 137 mEq/L 134-149 Prof Potassium 4.2 [...] >60 ml/min/1.73m^ >=60 Laboratory test 11/09/2018 Dipesh Bates([facility]) Free T4 1.06 ng/dL 0.75- 1.54 finding TSH 2.93 mIU/L 0.50-6.00 1 1 sst 2 Negative <25.0 Equivocal 25.0 - 29.9 Positive >29.9 Presence of antibodies to Rubeola is presumptive evidence of immunity except when acute infection is suspected. 3 Negative <9.0 Equivocal 9.0 - 10.9 Positive >10.9 A positive result generally indicates past exposure to Mumps virus or previous vaccination. 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 04/01/2019 Z11.1 Encounter for screening for respiratory Nickie Robbins M.D. tuberculosis 03/29/2019 Z23 Encounter for immunization Nickie Robbins M.D. 03/29/2019 Z11.1 Encounter for screening for respiratory Nickie Robbins M.D. tuberculosis 12/18/2018 S00.86xA Insect bite (nonvenomous) of other part Kalpana Cruz [facility] of head, initial enc 12/18/2018 W57.xxxA Bitten or stung by nonvenomous insect and Kalpana Gomezbhart, [facility] other nonvenomous 11/28/2018 M25.519 Pain in unspecified shoulder Nickie Robbins M.D. 11/28/2018 J01.90 Acute sinusitis, unspecified Nickie Robbins M.D. 11/28/2018 E78.49 Other hyperlipidemia Nickie Robbins M.D. 11/28/2018 E55.9 Vitamin D deficiency, unspecified Nickie Robbins M.D. 11/09/2018 R53.83 Other fatigue Kalpanaalli Cruz, [facility] 11/09/2018 R53.81 Other malaise Kalpana Cruz, [facility] 11/09/2018 I95.0 Idiopathic hypotension Kalpana Anthony, [facility] 11/09/2018 R42 Dizziness and giddiness Kalpana Anthony, [facility] 11/09/2018 R35.0 Frequency of micturition Kalpana Cruz, [facility] 11/05/2018 Z01.84 Encounter for antibody response Maru Nguyen NP examination 11/05/2018 J01.90 Acute sinusitis, unspecified Maru Nguyen NP 11/05/2018 Z23 Encounter for immunization Maru Nguyen NP Plan of Treatment Future Appointment(s):04/18/2019 5:00 pm - Nickie Robbins M.D. at Main Tllnng3704/06/2019 - Kalpana Cruz, PS80.211A Abrasion, right knee, initial encounterComments:this is irritated [...]
--- NOTE | 2019-05-01 01:34 | ED ---
Throat Pain/Nasal Congestion - HPI Summary HPI Summary: patient complains of sore throat, bilateral eye discharge and dry cough with yellow nasal discharge 1 week. Denies fever, ear pain, CP, SOB, N/V/D, abdominal pain, change in urine, change in BM. Medical history is graves. - History of Current Complaint Chief Complaint: EDThroatPain Time Seen by Provider: 05/01/19 00:52 Hx Obtained From: Patient Onset/Duration: Gradual Onset, Lasting Days Severity: Moderate Associated Signs And Symptoms: Positive: Nasal Discharge Cough: Productive - Allergies/Home Medications Allergies/Adverse Reactions: Allergies Allergy/AdvReac Type Severity Reaction Status Date / Time meperidine [From Demerol] Allergy Severe See Comment Verified 03/21/18 08:19 methimazole Allergy Severe Flushing Verified 03/21/18 08:19 midazolam [From Versed] Allergy Severe See Comment Verified 03/21/18 08:19 adhesive tape Allergy Rash Verified 03/21/18 08:19 PMH/Surg Hx/FS Hx/Imm Hx Endocrine/Hematology History: Reports: Hx Thyroid Disease - GRAVES DISEASE Denies: Hx Diabetes Cardiovascular History: Reports: Hx Valvular Heart Disease - mitral valve [facility] 1991, Other Cardiovascular Problems/Disorders - ENDOCARDITIS Denies: Hx Hypertension Respiratory History: Reports: Hx Pneumonia GI History: Reports: Other GI Disorders - Rand History: Denies: Hx Dialysis, Hx Renal Disease Musculoskeletal History: Reports: Hx Osteoporosis Sensory History: Reports: Hx Contacts or Glasses, Hx Vision Problem - 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 TONSILECTOMY. ARTIFICIAL HEART VALVE. GALL BLADDER. OOPHORECTOMY. Bilateral blepharoplasty , bilateral eyelid surgery Hx Anesthesia Reactions: No - Immunization History Date of Influenza Vaccine: 2017 Infectious Disease History: No Infectious Disease History: Denies: Traveled Outside the [place] in Last 30 Days - Family History Known Family History: Positive: Non-Contributory - Social History Alcohol Use: Weekly Alcohol Amount: had some tonight Hx Substance Use: No Substance Use Type: Reports: None Hx Tobacco Use: No Smoking Status (MU): Never Smoked Tobacco Have You Smoked in the Last Year: No Review of Systems Constitutional: Negative Positive: Drainage, Erythema Positive: Sore Throat, Nasal Discharge Cardiovascular: Negative Positive: Cough Gastrointestinal: Negative Genitourinary: Negative Musculoskeletal: Negative Skin: Negative Neurological: Negative Psychological: Normal All Other Systems Reviewed And Are Negative: Yes Physical Exam - Summary Physical Exam Summary: Bilateral conjunctivitis and thick yellow discharge from bilateral eyes. Yellow discharge from nose. Orangey of erythema. Ears unremarkable. Lung sounds clear to auscultation bilaterally. Abdomen soft nontender. Triage Information Reviewed: Yes Vital Signs On Initial Exam: Initial Vitals Temp Pulse Resp BP Pulse Ox 98.2 F 75 18 105/61 96 04/30/19 23:56 04/30/19 23:56 04/30/19 23:56 04/30/19 23:56 04/30/19 23:56 Vital Signs Reviewed: Yes Appearance: Positive: Well-Appearing Skin: Positive: Warm Head/Face: Positive: Normal Head/Face Inspection Eyes: Positive: Conjunctiva Inflammed, Discharge ENT: Positive: Pharyngeal erythema, Nasal drainage, TMs normal Neck: Positive: Supple Respiratory/Lung Sounds: Positive: Clear to Auscultation Cardiovascular: Positive: Normal, RRR Abdomen Description: Positive: Nontender Musculoskeletal: Positive: Normal Neurological: Positive: Normal Psychiatric: Positive: Normal AVPU Assessment: Alert - [place] Coma Scale Best Eye Response: 4 - Spontaneous Best Motor Response: 6 - Obeys Commands Best Verbal Response: 5 - Oriented Coma Scale Total: 15 Procedures - Sedation Patient Received Moderate/Deep Sedation with Procedure: No Diagnostics - Vital Signs Vital Signs Temp Pulse Resp BP Pulse Ox 05/01/19 00:13 98.6 F 74 18 118/58 97 04/30/19 23:56 98.2 F 75 18 105/61 96 - Laboratory Lab Statement: Any lab studies that have been ordered have been reviewed, and results considered in the medical decision making process. EENT Course/Dx - Course Course Of Treatment: patient complains of sore throat, bilateral eye discharge and dry cough with yellow nasal discharge 1 week. Denies fever, ear pain, CP, SOB, N/V/D, abdominal pain, change in urine, change in BM. Medical history is graves. Vital signs within normal limits. - Diagnoses Provider Diagnoses: Conjunctivitis, Pharyngitis, Cough, Sinusitis Discharge ED - Sign-Out/Discharge Documenting (check all that apply): Patient Departure - Discharge Plan Condition: Stable Disposition: HOME Prescriptions: Amoxicillin/Clavulanate TAB* [Augmentin TAB 875*] 875 mg PO BID #20 tab Lidocaine 2% VISCOUS* [Xylocaine 2% Viscous*] 15 ml SWISH SPIT Q6H PRN #1 btl PRN Reason: Pain - Moderate Patient Education Materials: Pharyngitis (ED), Sinusitis (ED), Conjunctivitis ( ED) Referrals: Nickie Robbins MD [Primary Care Provider] - Additional Instructions: One drop of antibiotic solution in each eye every 3 hours. Take antibiotics as directed for throat infection. Use lidocaine for sore throat pain. Follow-up with primary care. Return to the ED for any new or worsening symptoms. - Billing Disposition and Condition Condition: STABLE Disposition: Home - Attestation Statements Provider Attestation: I was available for consult. This patient was seen by the DISHA. The patient was not presented to, seen by, or examined by me. Baldemar Nur MD
[2019-05-01 02:23] LABS: Rapid Strep Molecular Negative (Negative)
[2019-05-01] MEDS: Polymyx/Trimethoprim OPTH* 10 ML BTL BOTH EYES SCH (02:27)
[2019-05-01] MEDS: Amoxicillin/Clavulanate TAB* 875 MG PO ONE (02:27)
[2019-05-01] MEDS: Lidocaine 2% VISCOUS* 15 ML UDC PO ONE (02:41)
[2019-05-01 03:01] VITALS: BP 120/62
== END 2019-05-01 02:57 | disposition home or self-care (01) ==
LOC: ED 23:54
DX: J02.9 Acute pharyngitis, unspecified (principal); H10.9 Unspecified conjunctivitis; J32.9 Chronic sinusitis, unspecified; E05.00 Thyrotoxicosis with diffuse goiter without thyrotoxic crisis or storm; Z90.721 Acquired absence of ovaries, unilateral; Z88.5 Allergy status to narcotic agent; Z88.8 Allergy status to other drugs, medicaments and biological substances
CPT/HCPCS: 87651; 99282; A9270-GY

== ENCOUNTER 2019-05-29 10:49 | Emergency (ER) | payer OTHER ==
[2019-05-29 11:29] VITALS: BP 99/52
--- NOTE | 2019-05-29 13:33 | UC ---
Throat Pain/Nasal Marek HPI - HPI Summary HPI Summary: SEVERAL DAYS OF SORE THROAT AND PAIN WITH SWALLOWING. GETTING WORSE. HAS COUGH , YELLOW NASAL DISCHARGE AND OVERALL MALAISE. DENIES FEVER OR NAUSEA. PATIENT REPORTS HER IS AT HOME ON HOSPICE AND IS NOT EXPECTED TO LIVE FOR MORE THAN 2 MORE WEEKS. SHE IS SLEEP DEPRIVED AND FEELS RUN DOWN. 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 Negative: Fever - Allergies/Home Medications Allergies/Adverse Reactions: Allergies Allergy/AdvReac Type Severity Reaction Status Date / Time meperidine [From Demerol] Allergy Severe See Comment Verified 05/29/19 11:22 methimazole Allergy Severe Flushing Verified 05/29/19 11:22 midazolam [From Versed] Allergy Severe See Comment Verified 05/29/19 11:22 adhesive tape Allergy Rash Verified 05/29/19 11:22 PMH/Surg Hx/FS Hx/Imm Hx Endocrine History: Thyroid Disease Cardiovascular History: Other - VALVULAR DISEASE - Surgical History Surgical History: Yes Surgery Procedure, Year, and Place: Uterine abalation. TONSILECTOMY. ARTIFICIAL HEART VALVE. GALL BLADDER. OOPHORECTOMY. Bilateral blepharoplasty , bilateral eyelid surgery - Family History Known Family History: Positive: Non-Contributory - Social History Alcohol Use: None Alcohol Amount: had some tonight Substance Use Type: None Smoking Status (MU): Never Smoked Tobacco Have You Smoked in the Last Year: No - Immunization History Most Recent Influenza Vaccination: Fall 2016 Most Recent Tetanus Shot: unknown, probably within 10 years Most Recent Pneumonia Vaccination: never Review of Systems All Other Systems Reviewed And Are Negative: Yes Constitutional: Positive: Fatigue ENT: Positive: Sore Throat, Nasal Discharge Respiratory: Positive: Cough Cardiovascular: Positive: Negative Gastrointestinal: Positive: Negative Physical Exam Triage Information Reviewed: Yes Appearance: Well-Appearing, No Pain Distress, Well-Nourished Vital Signs: Initial Vital Signs Temp 98.7 F 05/29/19 11:24 Pulse 74 11/06/19 11:24 Resp 14 05/29/19 11:24 BP 99/52 05/29/19 11:24 Pulse Ox 99 05/29/19 11:24 Laboratory Tests 05/29/19 11:35 Group A Strep Rapid Negative Vital Signs Reviewed: Yes Eyes: Positive: Conjunctiva Clear ENT: Positive: Hearing grossly normal, Pharynx normal, TMs normal Neck: Positive: Supple, Nontender, No Lymphadenopathy Respiratory Exam: Normal Cardiovascular Exam: Normal Abdomen Description: Positive: Soft Musculoskeletal: Positive: No Edema Neurological: Positive: Alert Psychological: Positive: Age Appropriate Behavior Skin: Negative: Rashes Throat Pain/Nasal Course/Dx - Course Course Of Treatment: PATIENT WITH LIKELY VIRAL PHARYNGITIS HOWEVER GIVEN HER EXTENUATING CIRCUMSTANCES (TERMINAL, IMMUNOCOMPROMISED AT HOME) WILL GO AHEAD AND COVER WITH ANTIBIOTICS. WILL ALSO GIVE PREDNISONE TO HELP WITH INFLAMMATION. DISCUSSED WITH PATIENT EFFECT OF AMOXICILLIN ON INR. SHE STATES SHE WILL FOLLOW HER LEVELS CLOSELY. FOLLOW-UP IF NOT IMPROVING EXPECTED. - Differential Dx/Diagnosis Provider Diagnosis: Acute pharyngitis Discharge ED - Sign-Out/Discharge Documenting (check all that apply): Patient Departure All imaging exams completed and their final reports reviewed: No Studies - Discharge Plan Condition: Stable Disposition: HOME Prescriptions: Amoxicillin PO (*) [Amoxicillin 500 MG CAP*] 500 mg PO Q12H #20 cap predniSONE TAB* [Deltasone 10 MG TAB*] 40 mg PO DAILY #20 tab Patient Education Materials: Pharyngitis (ED) Referrals: Ncikie Robbins MD [Primary Care Provider] - If Needed Additional Instructions: STREP NEGATIVE. YOUR SYMPTOMS ARE LIKELY VIRALLY MEDIATED HOWEVER GIVEN YOUR EXTENUATING CIRCUMSTANCES WILL GO AHEAD AND COVER WITH ANTIBIOTICS. TAKE THE AMOXICILLIN FOR THE FULL 10 DAYS. PREDNISONE MAY ALSO HELP WITH YOUR DISCOMFORT IT CAN CALM DOWN INFLAMMATION IN THE THROAT. USE THE VISCOUS LIDOCAINE YOU HAVE AT HOME PRESCRIBED. STAY WELL HYDRATED. TYLENOL NEEDED. BE SURE TO PAY CLOSE ATTENTION TO YOUR INR READINGS TAKING AMOXICILLIN IN CONJUNCTION WITH YOUR WARFARIN CAN INCREASE YOUR INR. - Billing Disposition and Condition Condition: STABLE Disposition: Home
== END 2019-05-29 12:18 | disposition home or self-care (01) ==
LOC: UCEAST 10:49
DX: J02.9 Acute pharyngitis, unspecified (principal); R53.83 Other fatigue; R09.89 Other specified symptoms and signs involving the circulatory and respiratory systems; Z88.5 Allergy status to narcotic agent; Z88.8 Allergy status to other drugs, medicaments and biological substances; Z91.09 Other allergy status, other than to drugs and biological substances
CPT/HCPCS: 87651; 99212; G0463

== ENCOUNTER 2019-10-04 16:17 | Emergency (ER) | payer OTHER ==
--- OUTSIDE RECORDS SUMMARY | 2019-10-04 16:24 | XMS REPORT | Continuity of Care Document ---
:1960 External Reference #:[id number] Author Name Nickie Robbins M.D. Address [address] [place] [address] Care Team Providers Name Role Phone Nickie Robbins - Family Medicine Care Team Information Folder Hand [phone] HeenaBarb salas - Busser Care Team Information Folder Hand Problems Active Problems Provider Date Acute maxillary [...] Active Allergies Reaction Severity Comments Date Methimazole full body rash 01/21/2011 Milk-related Compounds 01/21/2011 Versed massively decreased BP 01/21/2011 Demerol massively decreased BP 01/21/2011 Adhesives rash 03/17/2015 Medications Active Medications SIG Qnty Indications Ordering Date Provider Valtrex 4 pills by mouth 8tabs J02.9 Nickie Nur 10/03/2019 500mg Tablets twice a day Payal Robbins Acetaminophen-Codeine 1-2 by mouth at 10tabs J02.9 Nickie LPatricia 10/03/2019 #3 at bedtime for Payal Robbins 300-30mg Tablets pain/cough Physical Therapy evaluate and M25.561 Nickie L. 09/17/2019 treat Right knee Payal Robbins pain. Nebulizer w/ tubing kits - 1units J20.9 Nickie LPatricia 12/26/2017 [facility] dx: bronchitis Payal Robbins Inr Machine 1units [...] Capsules Probiotic 2 a day Unknown Capsules Mucinex 1200MG 1 tab every 12 Unknown hours Medications Administered in Office Medication SIG Qnty Indications Ordering Provider Date TB Intradermal Test Nickie Robbins M.D. 04/19/2019 Injection TB Intradermal Test Nickie Robbins M.D. 03/29/2019 Injection Immunizations CPT Code Status Date Vaccine Lot # [id number] Given 06/18/2019 Influenza Vac, Quadrivalent, Slit Virus, Im [id number] Given 03/29/2019 Zoster (Shingles) Vaccine (HZV), Recombinant, [id number] Subunit, Adjuvanted 76184 Given 05/28/2018 Influenza Vac, Quadriv[place], [place] [id number] Given 05/11/2017 Influenza Vac, Quadrivalent, Slit Virus, Im [id number] Given 03/17/2015 Tdap Tetanus, W Pertussis [id number] Vital Signs Date Vital Result Comment 10/03/2019 1:47pm BP Systolic 88 mmHg BP Diastolic 60 mmHg Heart Rate 80 /min Body Temperature 97.8 F Height 61.5 inches 5'1.50" Weight 125.00 lb BMI (Body Mass Index) 23.2 kg/m2 09/17/2019 3:59pm BP Systolic 90 mmHg BP Diastolic 52 mmHg Heart Rate 68 /min Body Temperature 97.9 F Height 61.5 inches 5'1.50" Weight 127.00 lb BMI (Body Mass Index) 23.6 kg/m2 Results Test Acquired Facility Test Result H/L Range Note Date Laboratory 10/03/2019 [facility] Quickstrep NEGATIVE Negative test finding (607)- - Laboratory 08/29/2019 [facility] ([facility]) [facility] Lab Test SEE test finding ATTACHED Inr/Protime 07/16/2019 [facility] Inr 3.27 High 0.82-1.09 1 CBC Auto Diff 07/16/2019 [facility] White Blood 4.6 10^3/uL Normal 3.5-10.8 Count Red Blood Count 5.07 10^6/uL High 3.70-4.87 Hemoglobin 13.5 g/dL Normal 12.0-16.0 Hematocrit 40 % Normal 35-47 Mean Corpuscular Volume 80 fL Normal 80-97 Mean Corpuscular Hemoglobin 27 pg Normal 27-31 Mean Corpuscular HGB Conc 33 g/dL Normal 31-36 Red Cell Distribution Width 14 % Normal 10-15 Platelet Count 170 10^3/uL Normal 150-450 Mean Platelet Volume 9.5 fL Normal 7.4-10.4 Abs Neutrophils 2.3 10^3/uL Normal 1.5-7.7 Abs Lymphocytes 1.9 10^3/uL Normal 1.0-4.8 Abs Monocytes 0.3 10^3/uL Normal 0-0.8 Abs Eosinophils 0.0 10^3/uL Normal 0-0.6 Abs Basophils 0.0 10^3/uL Normal 0-0.2 Abs Nucleated RBC 0.0 10^3/uL Granulocyte % 50.2 % Lymphocyte % 41.3 % Monocyte % 6.7 % Eosinophil % 0.9 % Basophil % 0.9 % Nucleated Red Blood Cells % 0.3 Comp Metabolic Panel 07/16/2019 [facility] Sodium 139 mmol/L Normal 135-145 Potassium 4.4 mmol/L Normal 3.5-5.0 Chloride 104 mmol/L Normal 101-111 Co2 Carbon Dioxide 30 mmol/L Normal 22-32 Anion Gap 5 mmol/L Normal 2-11 Glucose 78 mg/dL Normal 70-100 Blood Urea Nitrogen 14 mg/dL Normal 6-24 Creatinine 0.81 mg/dL Normal 0.51-0.95 BUN/Creatinine Ratio 17.3 Normal 8-20 Calcium 9.8 mg/dL Normal 8.6-10.3 Total Protein 7.0 g/dL Normal 6.4-8.9 Albumin 4.6 g/dL Normal 3.2-5.2 Globulin 2.4 g/dL Normal 2-4 Albumin/Globulin Ratio 1.9 Normal 1-3 Total Bilirubin 1.40 mg/dL High 0.2-1.0 Alkaline Phosphatase 51 U/L Normal 34-104 Alt 17 U/L Normal 7-52 Ast 23 U/L Normal 13-39 Egfr Non- 72.1 >60 Egfr 87.3 >60 2 Lipid Profile (Trig/Chol/HDL) 07/16/2019 [facility] Triglycerides 87 mg/dL 3 Cholesterol 233 mg/dL 4 HDL Cholesterol 91.3 mg/dL 5 LDL Cholesterol 124 mg/dL 6 Laboratory test finding 07/16/2019 [facility] CRP High Sensitivity 3.43 mg/L High <2.00 TSH (Thyroid Stim Horm) 2.67 mcIU/mL Normal 0.34-5.60 Laboratory test 05/29/2019 [facility] Rapid Strep Negative Negative 7 finding Molecular Laboratory test 05/01/2019 [facility] Rapid Strep A Negative Negative 8 finding Molecular Comprehensive 04/06/2019 Landon Jana(fma) Sodium 142 mEq/L 134-149 Metabolic Prof Potassium 4.3 mEq/L 3.6-5.5 Chloride 106 [...] >60 ml/min/1.73m^ >=60 Lipid Profile 04/06/2019 Dipesh Jana([facility]) Cholesterol 238 mg/dL High 120-200 Triglycerides 142 mg/dL 30-200 HDL Cholesterol 82 mg/dL 30-85 LDL (Calculated) 128 CALC 0-129 VLDL Cholesterol 28 mg/dL 0-50 HDL Risk Factor 2.9 CALC 0.0-4.4 CBC Electronic Fma 04/06/2019 Dipesh Bates([facility]) WBC 5.3 x10^3/UL 4.0- 10.0 RBC 4.98 x10^6/UL 3.93-6.00 HGB 13.2 g/dL 12.0-17.0 HCT 41 % 35-50 MCV 82.1 fL 80.0-95.0 MCH 26.5 pg 25.6-32.2 MCHC 32.3 g/dL 32.2-36.0 RDW-CV 14.5 % High 11.6-14.4 PLT 183 x10^3/UL 163-400 MPV 11.3 fL 9.4-12.4 Tera# 2.36 x10^3/UL 1.56-6.13 Lymph# 2.24 x10^3/UL 1.18-3.74 Douglas# 0.52 x10^3/UL 0.24-0.82 Eos # 0.2 x10^3/UL 0.0-0.5 Baso # 0.03 x10^3/UL 0.01-0.08 Tera% 44.3 % 34.0-70.0 Lymph % 42.1 % 20.0-52.0 Douglas% 9.8 % 5.0-12.0 Eos% 3.2 % 0.7-7.0 Baso% 0.6 % 0.1-1.2 Laboratory test 04/06/2019 Dipesh Bates([facility]) TSH 6.64 mIU/L High 0.50- 6.00 9 finding Vitamin D25 35 30-100 Free T4 1.05 ng/dL 0.75-1.54 1 Standard intensity warfarin therapeutic range: 2.0-3.0 High intensity warfarin therapeutic range: 2.5-3.5 2 Because ethnic data is not always readily [...] 15-29 5 Kidney failure <15 (or dialysis) 3 Desirable: <150 Borderline High: 150-199 High: 200-499 Very High: >500 4 Desirable: <200 Borderline High: 200-239 High: >239 5 Low: <40 Desirable: 40-60 High: >60 6 Desirable: <100 Near Optimal: 100-129 Borderline High: 130-159 High: 160-189 Very High: >189 7 Jeeper Operator: [id number] Suboptimal collection technique may reduce sensitivity of test. Refer to the [facility] Test Catalog for collection information: [email or web address] As with all diagnostic procedures, the laboratory results obtained should be used in conjunction with other clinical information available to the physician, including confirmation by another method, as applicable. 8 Jeeper Operator: [id number] RESULTS VERIFIED BY REPEAT ANALYSIS Procedures Date Code Description Status 09/17/2019 33790 Brief Emotional/Behav Assessment W/ Scoring Doc Per Completed Standard Inst 06/18/2019 04048 Electrocardiogram Complete Completed 04/18/2019 18549 CPHL SHQ Completed 04/18/2019 21379 Brief Emotional/Behav Assessment W/ Scoring Doc Per Completed Standard Inst 11/27/2018 [id number] Mammogram Completed 06/23/2017 [id number] Mammogram Completed 01/14/2016 [id number] Mammogram Completed 07/24/2013 [id number] Colonoscopy Completed Medical Devices Description No Information Available Encounters Type Date Location Provider Dx Diagnosis Office Visit 09/17/2019 [facility] Nickie Nur F43.21 Adjustment 3:00p Payal Robbins disorder with depressed mood M25.512 Pain in left shoulder M25.561 Pain in right knee Office Visit 06/18/2019 4:10p [facility] Nickie Nur R07.89 Other chest Payal Robbins pain Z95.2 Presence of prosthetic heart valve E05.00 Thyrotoxicosis 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 F43.21 Adjustment disorder with depressed mood Z23 Encounter for immunization Office Visit 04/22/2019 9:30a [facility] Nickie Nur Z11.1 Encounter for Payal Robbins screening for respiratory tuberculosis Office Visit 04/18/2019 5:00p [facility] Office Nickie Nur Z00.00 Encntr for general Payal Robbins adult medical exam w/o abnormal findings Z95.2 Presence of prosthetic heart valve Z79.01 FPC (current) use of anticoagulants E05.00 Thyrotoxicosis 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 M81.0 Age-related osteoporosis w/o current pathological fracture G47.09 Other insomnia Z13.31 Encounter for screening for depression Office Visit 04/06/2019 11:45a [facility] Kalpana S80.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 09/17/2019 F43.21 Adjustment disorder with depressed mood Nickie Robbins M.D. 09/17/2019 M25.512 Pain in left shoulder Nickie Robbins M.D. 09/17/2019 M25.561 Pain in right knee Nickie Robbins M.D. 06/18/2019 R07.89 Other chest pain Nickie Robbins M.D. 06/18/2019 Z95.2 Presence of prosthetic heart valve Nickie Robbins M.D. 06/18/2019 E05.00 Thyrotoxicosis with diffuse goiter Nickie Robbins M.D. without thyrotoxic crisis or storm 06/18/2019 F43.21 Adjustment disorder with depressed mood Nickie Robbins M.D. 06/18/2019 Z23 Encounter for immunization Nickie Robbins M.D. 04/22/2019 Z11.1 Encounter for screening for respiratory Nickie Robbins M.D. tuberculosis 04/19/2019 Z11.1 Encounter for screening for respiratory Nickie Robbins M.D. tuberculosis 04/18/2019 Z00.00 Encounter for general adult medical Nickie Robbins M.D. examination without abnormal findings 04/18/2019 Z95.2 Presence of prosthetic heart valve Nickie Robbins M.D. 04/18/2019 Z79.01 FPC (current) use of anticoagulants Nickie Robbins M.D. 04/18/2019 E05.00 Thyrotoxicosis with diffuse goiter Nickie Robbins M.D. without thyrotoxic crisis or storm 04/18/2019 M81.0 Age-related osteoporosis without current Nickie Robbins M.D. pathological fracture 04/18/2019 G47.09 Other insomnia Nickie Robbins M.D. 04/18/2019 Z13.31 Encounter for screening for depression Nickie Robbins M.D. 04/06/2019 S80.211A Abrasion, right [...] of thyroid function Nickie Robbins M.D. studies Plan of Treatment Future Appointment(s):10/15/2019 3:20 pm - [facility]D. at [facility]2019 - Nickie Robbins M.D.J02.9 Acute pharyngitis, unspecifiedNew Medication:Valtrex 500 mg - 4 pills by mouth twice a dayAcetaminophen-Codeine #3 300-30 mg - 1-2 by mouth at at bedtime for pain/ coughComments:looks like a herpetic lesion in your throat. take tylenol for pain.keep well hydrated.throat lozengesplenty of sleep. for general immunity viitamin D 5000 units a day for 30 days. citrus fruit, any fruit.AllComments: Medication Management Patient Understands medications she 's taking? Yes No Are there Barriers to Adherence? Yes No Has the patient been asked about herbal supplements and therapies, and OTC meds? Yes No Care Plan1. Patient has been queried about patient's goals/preferences and functional/lifestyle goals at relevant visits. If relevant, describe: na2. Treatment goals as explained to the patient: above3. Are there barriers to meeting treatment goals? Yes No If Yes, please describe:4. Self- Management goals as described to the patient: Yes No Functional Status Description No Information Available Mental Status Description No Information Available Referrals Refer to Reason for Referral Status Appt Date Andrés MCCRACKEN, Fred left shoulder pain jw Scheduled 10/07/2019 [facility] [address] [address] [phone]
--- OUTSIDE RECORDS SUMMARY | 2019-10-04 16:24 | XMS REPORT | Continuity of Care Document ---
:1960 External Reference #:[id number] Author Name Nickie Robbins M.D. Address [address] [place] [address] Care Team Providers Name Role Phone Nickie Robbins - Family Medicine Care Team Information Bag Adjuster [phone] HeenaBarb salasEliana - Senior It Business Analyst Care Team Information Bag Adjuster [phone] Problems Active Problems Provider Date Acute maxillary [...] Medications SIG Qnty Indications Ordering Date Provider Physical Therapy evaluate and M25.561 Nickie Nur 09/17/2019 treat Right knee Rosendo, M.D. pain. Nebulizer w/ tubing kits - 1units J20.9 Nickie SagastumePatricia 12/26/2017 [facility] dx: bronchitis Payal Robbins Inr Machine 1units Z95.2 Nickie Nur 11/30/2017 Payal Robbins Coumadin Take 2 Tablets By 60tabs Z95.2 Sushma Satnos 03/23/2017 5mg Tablets Mouth On Sundays. ALEXI [...] Capsules Probiotic 2 a day Unknown Capsules Medications Administered in Office Medication SIG Qnty Indications Ordering Provider Date TB Intradermal Test Nickie Robbins M.D. 04/19/2019 Injection TB Intradermal Test Nickie Robbins M.D. 03/29/2019 Injection Immunizations CPT Code Status Date Vaccine Lot # [id number] Given 06/18/2019 Influenza Vac, Quadrivalent, Slit Virus, Im [id number] Given 03/29/2019 Zoster (Shingles) Vaccine (HZV), Recombinant, [id number] Subunit, Adjuvanted 37410 Given 05/28/2018 Influenza Vac, Quadriv[place], [place] [address] Given 05/11/2017 Influenza Vac, Quadrivalent, Slit Virus, Im [id number] Given 03/17/2015 Tdap Tetanus, W Pertussis [id number] Vital Signs Date Vital Result Comment 09/17/2019 3:59pm BP Systolic 90 mmHg BP Diastolic 52 mmHg Heart Rate 68 /min Body Temperature 97.9 F Height 61.5 inches 5'1.50" Weight 127.00 lb BMI (Body Mass Index) 23.6 kg/m2 06/18/2019 4:44pm BP Systolic 90 mmHg BP Diastolic 52 mmHg Heart Rate 68 /min Body Temperature 98.2 F Respiratory Rate 12 /min Height 61.5 inches 5'1.50" Weight 124.00 lb BMI (Body Mass Index) 23.0 kg/m2 Results Test Acquired Date Facility Test Result H/L Range Note Laboratory test 08/29/2019 [facility] ([facility] Lab SEE ATTACHED finding Test Inr/Protime 07/16/2019 [facility] Inr 3.27 High 0.82-1.09 1 CBC Auto Diff 07/16/2019 [facility] White 4.6 10^3/uL Normal 3.5-10.8 Blood Count Red Blood Count 5.07 10^6/uL High [...] Cells % 0.3 Comp Metabolic Panel 07/16/2019 [facility] Sodium 139 mmol/L Normal 135-145 Potassium 4.4 [...] 87.3 >60 2 Lipid Profile (Trig/Chol/HDL) 07/16/2019 [facility] Triglycerides 87 mg/dL 3 Cholesterol 233 mg/dL 4 HDL Cholesterol 91.3 mg/dL 5 LDL Cholesterol 124 mg/dL 6 Laboratory test finding 07/16/2019 [facility] CRP High Sensitivity 3.43 mg/L High <2.00 TSH (Thyroid Stim Horm) 2.67 mcIU/mL Normal 0.34-5.60 Laboratory test 05/29/2019 [facility] Rapid Strep Negative Negative 7 finding Molecular Laboratory test 05/01/2019 [facility] Rapid Strep A Negative Negative 8 finding [...] GFR >60 ml/min/1.73m^ >=60 Lipid Profile 04/06/2019 Landon Jana([facility]) Cholesterol 238 mg/dL High 120-200 Triglycerides 142 mg/dL 30-200 HDL Cholesterol 82 mg/dL 30-85 LDL (Calculated) 128 CALC 0-129 VLDL Cholesterol 28 mg/dL 0-50 HDL Risk Factor 2.9 CALC 0.0-4.4 CBC Electronic a 04/06/2019 Dipesh Bates([facility]) WBC 5.3 x10^3/UL 4.0- 10.0 RBC 4.98 x10^6/UL 3.93-6.00 HGB 13.2 g/dL 12.0-17.0 HCT 41 % 35-50 MCV 82.1 fL 80.0-95.0 MCH 26.5 pg 25.6-32.2 MCHC 32.3 g/dL 32.2-36.0 RDW-CV 14.5 % High 11.6-14.4 PLT 183 x10^3/UL 163-400 MPV 11.3 fL 9.4-12.4 Tera# 2.36 x10^3/UL 1.56-6.13 Lymph# 2.24 x10^3/UL 1.18-3.74 Gilchrist# 0.52 x10^3/UL 0.24-0.82 Eos # 0.2 x10^3/UL 0.0-0.5 Baso # 0.03 x10^3/UL 0.01-0.08 Tera% 44.3 % 34.0-70.0 Lymph % 42.1 % 20.0-52.0 Gilchrist% 9.8 % 5.0-12.0 Eos% 3.2 % 0.7-7.0 Baso% 0.6 % 0.1-1.2 Laboratory test 04/06/2019 Dipesh Bates([facility]) TSH 6.64 mIU/L High 0.50- 6.00 9 [...] 130-159 High: 160-189 Very High: >189 7 Pug Mill Operator: [id number] Suboptimal collection technique may reduce sensitivity of test. Refer to the [facility] Test Catalog for collection information: [email or web address] As with all diagnostic procedures, the laboratory results obtained should be used in conjunction with other clinical information available to the physician, including confirmation by another method, as applicable. 8 Pug Mill Operator: [id number] RESULTS VERIFIED BY REPEAT ANALYSIS Procedures Date Code Description Status 06/18/2019 15514 Electrocardiogram Complete Completed 04/18/2019 72162 CPHL SHQ Completed 04/18/2019 66737 Brief Emotional/Behav Assessment W/ Scoring Doc Per Completed Standard Inst 11/27/2018 [id number] Mammogram Completed 06/23/2017 [id number] Mammogram Completed 01/14/2016 [id number] Mammogram Completed 07/24/2013 [id number] Colonoscopy Completed Medical Devices Description No Information Available Encounters Type Date Location Provider Dx Diagnosis Office Visit 06/18/2019 [facility] Nickie Nur R07.89 Other chest pain 4:10p Payal Robbins Z95.2 Presence of prosthetic heart valve E05.00 Thyrotoxicosis 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 04/18/2019 Z79.01 terminologist (current) use of anticoagulants iNckie Robbins M.D. 04/18/2019 E05.00 Thyrotoxicosis with diffuse [...] screening for respiratory Nickie Robbins M.D. tuberculosis Plan of Treatment 09/17/2019 - Nickie Robbins M.D.F43.21 Adjustment disorder with depressed moodComments:continue counselling when available. we can consider medication. exercise can be as good as medication - 15 minutes of walking 3 times a week.Follow up:2-4 weeks.M25.512 Pain in left shoulderComments:refer to wwmcdI41.561 Pain in right kneeNew Medication:Physical Therapy - evaluate and treat Right knee pain.AllComments:Medication Management Patient Understands medications she 's taking? [...] goals? Yes No If Yes, please describe:4. Self-Management goals as described to the patient: Yes No Functional Status Description No Information Available Mental Status Description No Information Available Referrals Description No Information Available
[2019-10-04 16:55] VITALS: BP 102/58
[2019-10-04] MEDS ORDERED: Acetaminophen TAB* 325 MG PO ONE (17:21)
--- NOTE | 2019-10-04 17:48 | UC ---
FLU HPI - HPI Summary HPI Summary: 58yo female presenting with sore throat x3 days and fever that started today. Patient also notes post nasal drip. States she coughed up "brown and green flecks earlier." Fever of 100 this morning and 102 later today. Patient states that she was seen by her pcp yesterday and had a negative strep test and was given valtrex x1 day for likley herpetic lesion in her throat. Patient states she would like to be tested again for strep. Denies n/v. Denies sob and wheezing. Normal appetite. Taking tylenol with codeine given by pcp. Patient adds she feels depressed and has appt with pcp to further discuss this on 10/14 but would like another referral today. Denies SI and HI. 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 Pain Intensity: 4 Pain Scale Used: 0-10 Numeric - Allergy/Home Medications Allergies/Adverse Reactions: Allergies Allergy/AdvReac Type Severity Reaction Status Date / Time meperidine [From Demerol] Allergy Severe See Comment Verified 10/04/19 16:55 methimazole Allergy Severe Flushing Verified 10/04/19 16:55 midazolam [From Versed] Allergy Severe See Comment Verified 10/04/19 16:55 adhesive tape Allergy Rash Verified 10/04/19 16:55 Home Medications: Home Medications Aspirin EC TAB* [Ecotrin EC Low Dose 81 MG*] 81 mg PO DAILY 06/08/12 [History Confirmed 10/04/19] Cholecalciferol TAB* [Vitamin D TAB*] 400 unit PO DAILY 06/08/12 [History Confirmed 10/04/19] Propylthiouracil TAB* [Ptu TAB*] 12.5 mg PO DAILY 06/08/12 [History Confirmed ] Raloxifene (NF) [Evista(NF)] 60 mg PO DAILY 10/16/15 [History Confirmed 10/04/19 ] Warfarin TAB(*) [Coumadin TAB(*)] 4 mg PO DAILY #45 tab 03/26/18 [Rx Confirmed 10/04/19] Acetaminop/Codeine 30 MG TAB* [Tylenol/Codeine 30 MG TAB*] 1 tab PO PRN [History] L.acidoph,Paracasei, B.lactis [Probiotic] 1 each PO DAILY 10/04/19 [History Confirmed 10/04/19] ValACYclovir (*) [Valtrex 1 GM(*)] 1 gm PO BID #14 tab 10/04/19 [Rx] PMH/Surg Hx/FS Hx/Imm Hx Endocrine History: Hyperthyroidism - Surgical History Surgical History: Yes Surgery Procedure, Year, and Place: Uterine abalation. TONSILLECTOMY. ARTIFICIAL HEART VALVE. GALL BLADDER. OOPHORECTOMY. upper and lower blepharplasty. Bilateral blepharoplasty, bilateral eyelid surgery - Family History Known Family History: Positive: Non-Contributory - Social History Alcohol Use: Rare Alcohol Amount: had some tonight Substance Use Type: None Smoking Status (MU): Never Smoked Tobacco Have You Smoked in the Last Year: No - Immunization History Most Recent Influenza Vaccination: Fall 2016 Most Recent Tetanus Shot: unknown, probably within 10 years Most Recent Pneumonia Vaccination: never Review of Systems All Other Systems Reviewed And Are Negative: Yes Constitutional: Positive: Fever. Negative: Chills, Fatigue ENT: Positive: Sore Throat, Nasal Discharge - PND Respiratory: Positive: Negative Cardiovascular: Positive: Negative Gastrointestinal: Positive: Negative Musculoskeletal: Positive: Negative Neurological/Mental Status: Positive: Negative Psychological: Positive: Depressed Physical Exam Triage Information Reviewed: Yes Appearance: Well-Appearing, No Pain Distress, Well-Nourished Vital Signs: Initial Vital Signs Temp 102 F 10/04/19 16:42 Pulse 104 10/04/19 16:42 Resp 20 10/04/19 16:42 BP 102/58 10/04/19 16:42 Pulse Ox 97 10/04/19 16:42 Lab Results 10/04/19 10/04/19 Range/Units 17:38 18:13 Influenza A (Rapid) Negative (Negative) Influenza B (Rapid) Negative (Negative) Group A Strep Rapid Negative (Negative) Vital Signs Reviewed: Yes Eyes: Positive: Conjunctiva Clear ENT: Positive: Hearing grossly normal, Pharyngeal erythema, TMs normal, Uvula midline, Other - small ulcerative lesion noted on posterior pharynx. Negative: Nasal congestion, Nasal drainage, Tonsillar swelling, Tonsillar exudate, Trismus , Muffled voice, Hoarse voice Neck exam: Normal Neck: Positive: Supple, Nontender, No Lymphadenopathy Respiratory Exam: Normal Respiratory: Positive: Lungs clear, Normal breath sounds, No respiratory distress, No accessory muscle use Cardiovascular Exam: Normal Cardiovascular: Positive: RRR Neurological: Positive: Alert Psychological: Positive: Age Appropriate Behavior Skin Exam: Normal Flu Course/Dx - Course Course Of Treatment: Negative rapid strep and flu. Discussed likely viral illness with patient. Throat swab was sent for culture and another swab sent for herpes testing. I provided the patient with more valtrex for likely herpetic lesion of throat. Instructed to continue with otc analgesics for pain and fever relief. Instructed to follow up with pcp if symptoms persist or worsen. Patient voiced understanding and agreed with treatment plan. - Differential Dx/Diagnosis Provider Diagnosis: Lesion of throat, Pharyngitis, Fever Discharge ED - Sign-Out/Discharge Documenting (check all that apply): Patient Departure All imaging exams completed and their final reports reviewed: No Studies - Discharge Plan Condition: Stable Disposition: HOME Prescriptions: ValACYclovir (*) [Valtrex 1 GM(*)] 1 gm PO BID #14 tab Patient Education Materials: Pharyngitis (ED), Depression (ED) Referrals: Nickie Robbins MD [Primary Care Provider] - [facility] [Outside] Additional Instructions: As discussed, your flu and strep tests were negative today. Take Valtrex for likely viral lesion. Throat cultures were sent and he'll be notified with any positive results warrant a change in treatment. Continue to take Tylenol and/or ibuprofen for fever and pain relief. Throat lozenges and 2 with honey may help alleviate sore throat. Contact her primary care provider if her symptoms do not improve within 7 days. Go to the emergency room if you experience new or worsening symptoms, including fever higher than 102 that does not improve with medication. Contact your primary care provider or the mental health center listed below for further psych evaluation if desired. - Billing Disposition and Condition Condition: STABLE Disposition: Home - Attestation Statements Provider Attestation: This patient was not seen by me. I was available for consult. Chart reviewed. TORI
[2019-10-04 17:50] LABS: Influenza A Molecular Negative (Negative); Influenza B Molecular Negative (Negative)
== END 2019-10-04 18:40 | disposition home or self-care (01) ==
LOC: UCEAST 16:17
DX: J02.9 Acute pharyngitis, unspecified (principal); R50.9 Fever, unspecified; K13.70 Unspecified lesions of oral mucosa; R09.82 Postnasal drip; E05.90 Thyrotoxicosis, unspecified without thyrotoxic crisis or storm; Z88.5 Allergy status to narcotic agent; Z88.8 Allergy status to other drugs, medicaments and biological substances; Z91.09 Other allergy status, other than to drugs and biological substances; Z79.890 Hormone replacement therapy; Z79.82 Long term (current) use of aspirin
CPT/HCPCS: 87070; 87651; 99212; A9270-GY; G0463

== ENCOUNTER 2024-06-13 22:59 | Inpatient (IN) ==
[2024-06-13 23:41] LABS: Hematocrit 36.9 % (35-45); Hemoglobin 11.9 g/dL (11.5-14.3); Mean Corpuscular Hemoglobin 25.7 pg (27-33); Mean Corpuscular Hgb Conc 32.1 g/dL (31-36); Mean Platelet Volume 9.3 fL (7.5-11.2); Platelet Count 170 10^3/uL (150-450); Red Blood Count 4.62 10^6/uL (3.63-4.92); White Blood Count 20.5 10^3/uL (3.8-11.8)
[2024-06-13] MEDS: ceFAZolin 2 GM PREMIX 2 GM/50 ML BAG IV ONE (23:54)
[2024-06-13 23:58] LABS: INR 6.51 (0.85-1.14)
[2024-06-14] MEDS ORDERED: Sulfur Hexaflouride MICROSPHR 25 MG VIAL IV PRN (00:59)
[2024-06-14 01:05] LABS: Albumin 4.6 g/dL (3.2-5.2); Albumin/Globulin Ratio 2.6 (1-3); Calcium 9.7 mg/dL (8.6-10.3); Creatinine, Serum 1.01 mg/dL (0.51-0.95); Globulin 1.8 g/dL (2-4); Total Bilirubin 1.3 mg/dL (0.2-1.0); Total Protein 6.4 g/dL (6.4-8.9); eGFR CKD-EPI 61.8 (>60)
[2024-06-14 01:23] LABS: ABS Basophils 0.1 10^3/uL (0.0-0.1); ABS Eosinophils 0.2 10^3/uL (0.0-0.5); ABS Lymphocytes 16.2 10^3/uL (1.0-4.8); ABS Monocytes 0.5 10^3/uL (0.0-0.9); ABS Neutrophils 3.5 10^3/uL (1.5-7.6); ABS Nucleated RBC 0.07 10^3/ul; Eosinophil % 1.1 %; Lymphocyte % 78.8 %; Nucleated Red Blood Cells % 0.4 %/100WBC (0.0-0.8)
[2024-06-14 01:26] LABS: RBC Morphology Normal (Normal); Smudge Cells Present
[2024-06-14 01:39] LABS: TSH Ultra Thyroid Stim Horm 4.17 mcIU/mL (0.34-5.60)
[2024-06-14 02:25] LABS: C Reactive Protein 5.41 mg/L (<8.01)
[2024-06-14] MEDS: ceFAZolin 2 GM PREMIX 2 GM/50 ML BAG IV SCH ×2 (07:48→17:21)
[2024-06-14 08:11] LABS: Hematocrit 36.2 % (35-45); Hemoglobin 11.7 g/dL (11.5-14.3); Mean Corpuscular Hgb Conc 32.3 g/dL (31-36); Mean Corpuscular Volume 80.3 fL (80-97); Mean Platelet Volume 9.3 fL (7.5-11.2); Platelet Count 161 10^3/uL (150-450); Red Cell Distribution Width 15.2 % (12-17)
[2024-06-14 08:49] LABS: Calcium 9.7 mg/dL (8.6-10.3); Creatinine, Serum 0.81 mg/dL (0.51-0.95); Magnesium 2.1 mg/dL (1.9-2.7); Potassium 4.1 mmol/L (3.5-5.0); eGFR CKD-EPI 80.5 (>60)
[2024-06-14 09:24] LABS: Albumin 4.3 g/dL (3.2-5.2); Albumin/Globulin Ratio 2.5 (1-3); Direct Bilirubin 0.1 mg/dL (0.03-0.18); Globulin 1.7 g/dL (2-4); Indirect Bilirubin 0.9 mg/dL (0.3-1.0)
[2024-06-14 10:22] LABS: ABS Eosinophils 0.2 10^3/uL (0.0-0.5); ABS Lymphocytes 13.3 10^3/uL (1.0-4.8); ABS Monocytes 0.5 10^3/uL (0.0-0.9); ABS Neutrophils 2.9 10^3/uL (1.5-7.6); ABS Nucleated RBC 0.07 10^3/ul; Eosinophil % 1.4 %; Lymphocyte % 78.4 %; Nucleated Red Blood Cells % 0.4 %/100WBC (0.0-0.8)
[2024-06-14] MEDS: Aspirin EC 81 mg TAB.EC (enteric coated) PO SCH (10:52)
[2024-06-14 12:04] LABS: INR 4.3 (0.85-1.14)
[2024-06-14] MEDS ORDERED: Warfarin per PHARMACY **NOTE FOLLOW UP SCH (17:00)
[2024-06-14] MEDS: Warfarin DAILY REMINDER **NOTE FOLLOW UP SCH (17:58)
[2024-06-14] MEDS: Warfarin - No Order Today **NOTE FOLLOW UP ONE (17:58)
[2024-06-15 06:48] LABS: Hemoglobin 11.7 g/dL (11.5-14.3); Mean Corpuscular Hgb Conc 32.4 g/dL (31-36); Mean Corpuscular Volume 80.2 fL (80-97); Mean Platelet Volume 9.6 fL (7.5-11.2); Platelet Count 157 10^3/uL (150-450); Red Blood Count 4.49 10^6/uL (3.63-4.92); Red Cell Distribution Width 15.1 % (12-17); White Blood Count 17.6 10^3/uL (3.8-11.8)
[2024-06-15 06:53] LABS: INR 2.83 (0.85-1.14)
[2024-06-15 08:14] LABS: Calcium 9.2 mg/dL (8.6-10.3); Creatinine, Serum 0.87 mg/dL (0.51-0.95); Potassium 4.1 mmol/L (3.5-5.0); eGFR CKD-EPI 73.9 (>60)
[2024-06-15 08:48] LABS: ABS Basophils 0.1 10^3/uL (0.0-0.1); ABS Eosinophils 0.2 10^3/uL (0.0-0.5); ABS Lymphocytes 13.8 10^3/uL (1.0-4.8); ABS Monocytes 0.5 10^3/uL (0.0-0.9); ABS Nucleated RBC 0.05 10^3/ul; Eosinophil % 1.3 %; Lymphocyte % 78.3 %; Nucleated Red Blood Cells % 0.3 %/100WBC (0.0-0.8); RBC Morphology Normal (Normal)
[2024-06-15] MEDS: Gadoteridol (CONTRAST) 279.3 MG/ML 10 ML IV ONE (10:53)
[2024-06-16 06:56] LABS: INR 2.23 (0.85-1.14)
[2024-06-16 07:45] LABS: Hematocrit 35.8 % (35-45); Hemoglobin 11.6 g/dL (11.5-14.3); Mean Corpuscular Hemoglobin 26.2 pg (27-33); Mean Corpuscular Hgb Conc 32.5 g/dL (31-36); Mean Corpuscular Volume 80.6 fL (80-97); Mean Platelet Volume 9.7 fL (7.5-11.2); Platelet Count 155 10^3/uL (150-450); Red Blood Count 4.44 10^6/uL (3.63-4.92); Red Cell Distribution Width 15.3 % (12-17); White Blood Count 20.1 10^3/uL (3.8-11.8)
[2024-06-16] MEDS ORDERED: Warfarin per PHARMACY **NOTE FOLLOW UP SCH (09:52)
[2024-06-16 17:32] LABS: Albumin 4.2 g/dL (3.2-5.2); Albumin/Globulin Ratio 2.8 (1-3); Calcium 9.3 mg/dL (8.6-10.3); Creatinine, Serum 0.73 mg/dL (0.51-0.95); Globulin 1.5 g/dL (2-4); Total Bilirubin 0.9 mg/dL (0.2-1.0); Total Protein 5.7 g/dL (6.4-8.9); eGFR CKD-EPI 91.2 (>60)
[2024-06-17] MEDS: Dextran 70/Hypromellose Tears Eye Drops 15 ml BTL (for Artificials Tears) BOTH EYES PRN (06:42)
[2024-06-17 06:44] LABS: Hematocrit 36.6 % (35-45); Hemoglobin 11.7 g/dL (11.5-14.3); Mean Corpuscular Hemoglobin 25.9 pg (27-33); Mean Corpuscular Hgb Conc 31.9 g/dL (31-36); Mean Corpuscular Volume 81.3 fL (80-97); Mean Platelet Volume 9.3 fL (7.5-11.2); Platelet Count 158 10^3/uL (150-450); Red Blood Count 4.51 10^6/uL (3.63-4.92); Red Cell Distribution Width 15.5 % (12-17); White Blood Count 21.1 10^3/uL (3.8-11.8)
[2024-06-17 06:46] LABS: INR 2.94 (0.85-1.14)
[2024-06-17] MEDS ORDERED: Flumazenil 0.5 mg/5 ml 0.1 MG/ML 5 ml VIAL ONE (08:16)
[2024-06-17] MEDS ORDERED: Naloxone 0.4 mg VIAL 0.4 mg/ml 1 ml VIAL ONE (08:16)
[2024-06-17] MEDS ORDERED: fentaNYL 100 mcg/2 ml 50 MCG/ML VIAL ONE (08:16)
[2024-06-17] MEDS ORDERED: Midazolam 5 mg/5 ml VIAL 1 mg/ml 5 ml VIAL (5 mg) ONE (08:17)
[2024-06-17] MEDS: CMCS: Raloxifene 60 mg TAB (NF) PO SCH (11:57)
[2024-06-18 06:34] LABS: Hematocrit 34.6 % (35-45); Hemoglobin 11.1 g/dL (11.5-14.3); Mean Corpuscular Hgb Conc 32.1 g/dL (31-36); Mean Corpuscular Volume 80.8 fL (80-97); Mean Platelet Volume 9.2 fL (7.5-11.2); Platelet Count 158 10^3/uL (150-450); Red Blood Count 4.28 10^6/uL (3.63-4.92); Red Cell Distribution Width 15.2 % (12-17); White Blood Count 18.8 10^3/uL (3.8-11.8)
[2024-06-18 06:48] LABS: Creatinine, Serum 0.76 mg/dL (0.51-0.95); Potassium 4.2 mmol/L (3.5-5.0); eGFR CKD-EPI 86.9 (>60)
[2024-06-18 07:10] LABS: INR 4.05 (0.85-1.14)
[2024-06-18] MEDS ORDERED: RIFAXIMIN 200 MG PO SCH (14:00)
[2024-06-18] MEDS ORDERED: Gentamicin ADULT per pharmacy 1 NOTE MISC FOLLOW UP PRN (15:08)
[2024-06-18] MEDS: Gentamicin ADULT 100 MG in NS 0.9% 100 ml BAG 100 ML IVPB SCH (15:20)
[2024-06-18] MEDS: Warfarin - No Order Today **NOTE FOLLOW UP ONE (17:01)
[2024-06-19 05:44] LABS: Hematocrit 34.5 % (35-45); Hemoglobin 11.2 g/dL (11.5-14.3); Mean Corpuscular Hemoglobin 26.1 pg (27-33); Mean Corpuscular Hgb Conc 32.4 g/dL (31-36); Mean Corpuscular Volume 80.4 fL (80-97); Mean Platelet Volume 9.2 fL (7.5-11.2); Platelet Count 152 10^3/uL (150-450); Red Blood Count 4.29 10^6/uL (3.63-4.92); Red Cell Distribution Width 15.2 % (12-17); White Blood Count 17.6 10^3/uL (3.8-11.8)
[2024-06-19 05:54] LABS: INR 3.75 (0.85-1.14)
[2024-06-19] MEDS ORDERED: Ondansetron 4 mg VIAL 2 MG/ML 2 ml VIAL IV PRN ×2 (06:14→09:51)
[2024-06-19] MEDS ORDERED: fentaNYL 100 mcg/2 ml 50 MCG/ML VIAL IV PRN (06:14)
[2024-06-19] MEDS ORDERED: Metoclopramide 5 MG/ML VIAL (10 mg) IV PRN (06:14)
[2024-06-19] MEDS ORDERED: Naloxone 0.4 mg VIAL 0.4 mg/ml 1 ml VIAL IV PRN (06:14)
[2024-06-19 06:20] LABS: Calcium 9.1 mg/dL (8.6-10.3); Creatinine, Serum 0.83 mg/dL (0.51-0.95); Potassium 4.1 mmol/L (3.5-5.0); eGFR CKD-EPI 78.2 (>60)
[2024-06-19 06:42] LABS: ABS Eosinophils 0.2 10^3/uL (0.0-0.5); ABS Lymphocytes 13.9 10^3/uL (1.0-4.8); ABS Monocytes 0.7 10^3/uL (0.0-0.9); ABS Neutrophils 2.8 10^3/uL (1.5-7.6); ABS Nucleated RBC 0.04 10^3/ul; Lymphocyte % 79.1 %; Nucleated Red Blood Cells % 0.2 %/100WBC (0.0-0.8)
[2024-06-19 06:43] LABS: RBC Morphology Normal (Normal); Smudge Cells Present
[2024-06-19] MEDS ORDERED: Propofol 10 MG/ML 20 ML BTL ONE (06:58)
[2024-06-19] MEDS ORDERED: Lidocaine 2% PF 5 ML VIAL ONE (06:58)
[2024-06-19] MEDS ORDERED: Midazolam 2 mg/2 ml VIAL 1 mg/ml 2 ml VIAL (2 mg) ONE (06:59)
[2024-06-19] MEDS ORDERED: NS 0.45% 1000 ml BAG 1,000 ML IV SCH (07:00)
[2024-06-19] MEDS: Lactated Ringers 1000 ml BAG 1,000 ML IV SCH (13:06)
[2024-06-19] MEDS: Acetaminophen IV 1 GM/100ML 1,000 MG/100 ML BAG IV ONE (15:15)
[2024-06-19] MEDS: Scopolamine 1 mg/72hr PATCH TRANSDERM ONE (15:16)
[2024-06-19] MEDS: Buffered Lidocaine 1% SYRIN 1 ml INTRADERM ONE (15:16)
[2024-06-19] MEDS: DAPTOmycin SDV 500 MG in NS 0.9% 50 ML 50 ML IVPB SCH (15:41)
[2024-06-20 06:12] LABS: Hematocrit 33.7 % (35-45); Mean Corpuscular Hemoglobin 26.3 pg (27-33); Mean Corpuscular Hgb Conc 32.5 g/dL (31-36); Mean Corpuscular Volume 80.9 fL (80-97); Mean Platelet Volume 9.2 fL (7.5-11.2); Platelet Count 153 10^3/uL (150-450); Red Blood Count 4.16 10^6/uL (3.63-4.92); Red Cell Distribution Width 15.5 % (12-17); White Blood Count 20.1 10^3/uL (3.8-11.8)
[2024-06-20 06:21] LABS: INR 2.76 (0.85-1.14)
[2024-06-20 06:43] LABS: Calcium 9.1 mg/dL (8.6-10.3); Creatinine, Serum 0.72 mg/dL (0.51-0.95); Potassium 4.1 mmol/L (3.5-5.0); eGFR CKD-EPI 92.7 (>60)
[2024-06-20 07:38] LABS: ABS Basophils 0.1 10^3/uL (0.0-0.1); ABS Eosinophils 0.2 10^3/uL (0.0-0.5); ABS Lymphocytes 13.8 10^3/uL (1.0-4.8); ABS Monocytes 0.7 10^3/uL (0.0-0.9); ABS Neutrophils 5.2 10^3/uL (1.5-7.6); ABS Nucleated RBC 0.03 10^3/ul; Lymphocyte % 69.1 %; Nucleated Red Blood Cells % 0.2 %/100WBC (0.0-0.8)
[2024-06-20 07:39] LABS: RBC Morphology Normal (Normal)
[2024-06-21 05:58] LABS: INR 3.17 (0.85-1.14)
[2024-06-21 06:05] LABS: Creatinine, Serum 0.7 mg/dL (0.51-0.95); eGFR CKD-EPI 95.9 (>60)
[2024-06-21 08:27] LABS: Calcium 8.9 mg/dL (8.6-10.3)
[2024-06-21 09:46] LABS: Hematocrit 34.3 % (35-45); Hemoglobin 11.1 g/dL (11.5-14.3); Mean Corpuscular Hemoglobin 26.2 pg (27-33); Mean Corpuscular Hgb Conc 32.5 g/dL (31-36); Mean Corpuscular Volume 80.6 fL (80-97); Mean Platelet Volume 9.4 fL (7.5-11.2); Platelet Count 167 10^3/uL (150-450); Red Blood Count 4.26 10^6/uL (3.63-4.92); Red Cell Distribution Width 15.5 % (12-17); White Blood Count 18.7 10^3/uL (3.8-11.8)
[2024-06-21 10:18] LABS: ABS Eosinophils 0.2 10^3/uL (0.0-0.5); ABS Lymphocytes 13.7 10^3/uL (1.0-4.8); ABS Monocytes 0.5 10^3/uL (0.0-0.9); ABS Neutrophils 4.3 10^3/uL (1.5-7.6); ABS Nucleated RBC 0.06 10^3/ul; Lymphocyte % 73.5 %; Nucleated Red Blood Cells % 0.3 %/100WBC (0.0-0.8)
[2024-06-21 20:22] VITALS: BP 106/65
[2024-07-02 08:59] LABS: Hematocrit 35.6 % (35-45); Hemoglobin 11.7 g/dL (11.5-14.3); Mean Corpuscular Hemoglobin 26.3 pg (27-33); Mean Corpuscular Hgb Conc 32.8 g/dL (31-36); Mean Platelet Volume 8.7 fL (7.5-11.2); Platelet Count 194 10^3/uL (150-450); Red Blood Count 4.46 10^6/uL (3.63-4.92); Red Cell Distribution Width 14.8 % (12-17); White Blood Count 13.7 10^3/uL (3.8-11.8)
[2024-07-02 09:15] LABS: INR 1.25 (0.85-1.14)
[2024-07-02 09:24] LABS: Albumin 4.5 g/dL (3.2-5.2); Calcium 9.4 mg/dL (8.6-10.3); Creatinine, Serum 0.86 mg/dL (0.51-0.95); Globulin 2.3 g/dL (2-4); Potassium 4.3 mmol/L (3.5-5.0); Total Protein 6.8 g/dL (6.4-8.9); eGFR CKD-EPI 74.9 (>60)
[2024-07-02 09:55] LABS: ABS Eosinophils 0.4 10^3/uL (0.0-0.5); ABS Monocytes 0.3 10^3/uL (0.0-0.9); ABS Nucleated RBC 0.04 10^3/ul; Eosinophil % 2.6 %; Lymphocyte % 72.6 %; Nucleated Red Blood Cells % 0.3 %/100WBC (0.0-0.8)
[2024-07-03 14:13] LABS: C Reactive Protein 3.72 mg/L (<8.01)
== END 2024-06-21 16:10 | disposition home or self-care (01) | DRG 314 ==
LOC: EDHOLD 22:59 → ED 22:59 → SUATTDRO 06-14 00:52 → MEDTELE 06-14 12:09 → SUATTDRO 06-15 10:44
PROVIDERS: ADMIT Student in an Organized Health Care Education/Training Program; ATTEND Internal Medicine
PROC: CARDVER (ICD-10-PCS; 2024-06-19 07:45)